=== PATIENT | male | born 1955 | race Caucasian/White ===

== ENCOUNTER 2018-05-14 06:49 | Emergency (ER) | payer MEDICARE, OTHER ==
[2018-05-14 06:57] VITALS: BP 155/93
--- NOTE | 2018-05-14 08:28 | EDM.PDOC ---
ED HPI GENERAL MEDICAL PROBLEM - General Chief Complaint: Headache Stated Complaint: headache Time Seen by Provider: 05/14/18 07:34 Source of Information: Reports: Patient, Family (spouse) History Limitations: Reports: No Limitations - History of Present Illness INITIAL COMMENTS - FREE TEXT/NARRATIVE: Barron is a 62 yo male who presents to the ER with concerns of ongoing headache. He admits it started back in 2012 and has been chronic since. States back in 2012 he ended up getting encephalitis. He states the headaches were always manageable but have been getting worse the last few months. Dr. Skinner, primary physician, has done multiple imaging and laboratory tests secondary to his headaches. He was given prednisone a few weeks ago and he admits it completely resolved his headache. After stopping the medication the headache returned in [address] Skinner was concerned of his kidney function with history of chronic kidney disease and his diabetes. He has seen nephrology in the past but his fabrication welder ( Dr. Davis) left and hasn't seen one in awhile. He admits he is now scheduled for May 29 to see nephrology in [place] at [place]. He states he has been up last night vomiting and has had 1 episode in the ER. He hasn't taken anything for nausea. His would also like for us to look at a tick bite to the right side of his stomach. She states he got bit a few days ago. Location: Reports: Head Headache Pain Score (Numeric/FACES): 7 - Related Data Allergies Allergy/AdvReac Type Severity Reaction Status Date / Time amoxicillin Allergy Itching Verified 05/14/18 06:57 erythromycin base Allergy Nausea Verified 05/14/18 06:57 penicillin Allergy Swelling Verified 05/14/18 06:57 Home Meds: Home Meds ALPRAZolam [Xanax] 0.25 mg PO Q8H PRN 07/02/15 [History] Amitriptyline [Elavil] 1 - 2 tab PO BEDTIME 07/02/15 [History] Insulin Detemir [Levemir] 40 units SQ BEDTIME 07/02/15 [History] Moexipril HCl [Moexipril] 15 mg PO BEDTIME 07/02/15 [History] Sertraline [Zoloft] 50 tab PO BEDTIME 07/02/15 [History] oxyCODONE 20 mg PO Q12H 07/02/15 [History] Simvastatin [Zocor] 20 mg PO BEDTIME 01/25/16 [History] Insulin Lispro [HumaLOG] 10 unit SQ ACBREAKFAST 02/13/16 [History] Insulin Lispro [HumaLOG] 14 unit SQ ACLUNCH 02/13/16 [History] Insulin Lispro [HumaLOG] 18 unit SQ ACDINNER 02/13/16 [History] Albuterol [Ventolin HFA] 2 puff INH QID PRN 02/15/16 [History] Fluticasone/Salmeterol [Advair Diskus 250-50] 1 puff INH BID 05/28/16 [History] Gemfibrozil [Lopid] 600 mg PO BID 05/28/16 [History] Metoprolol Succinate 50 mg PO DAILY 05/14/18 [History] Past Medical History HEENT History: Reports: Allergic Rhinitis, Other (See Below) Other HEENT History: left eardrum trauma Cardiovascular History: Reports: High Cholesterol, Hypertension, Other (See Below) Other Cardiovascular History: pt states will have to see a program specialist for possilbe stent placement. Respiratory History: Reports: Asthma, COPD Gastrointestinal History: Reports: Pancreatitis, PUD Genitourinary History: Reports: BPH Musculoskeletal History: Reports: Arthritis, Back Pain, Chronic, Osteoarthritis Psychiatric History: Reports: Anxiety, Depression Endocrine/Metabolic History: Reports: Diabetes, Type II Immunologic History: Reports: Other (See Below) Other Immunologic History: Hx of shingles - Infectious Disease History Infectious Disease History: Reports: Shingles - Past Surgical History GI Surgical History: Reports: Cholecystectomy, Colonoscopy Neurological Surgical History: Reports: Laminectomy, Lumbar Spine, Spinal Fusion , Other (See Below) Musculoskeletal Surgical History: Reports: Knee Replacement, Shoulder Surgery Social & Family History - Family History Family Medical History: Noncontributory - Tobacco Use Smoking Status *Q: Never Smoker - Caffeine Use Caffeine Use: Reports: None - Recreational Drug Use Recreational Drug Use: No ED ROS GENERAL - Review of Systems Review Of Systems: See Below Constitutional: Denies: Fever, Chills HEENT: Reports: Sinus Problem Respiratory: Reports: No Symptoms Cardiovascular: Reports: No Symptoms GI/Abdominal: Reports: Nausea, Vomiting : Reports: No Symptoms Musculoskeletal: Reports: No Symptoms Neurological: Reports: Headache. Denies: Confusion, Dizziness, Difficulty Walking, Change in Speech Psychiatric: Reports: Anxiety - Physical Exam Exam: See Below Exam Limited By: No Limitations General Appearance: Alert, No Apparent Distress Ears: Normal External Exam, Normal Canal, Hearing Grossly Normal, Normal TMs Nose: Normal Inspection, Normal Mucosa, No Blood Throat/Mouth: Normal Inspection, Normal Lips, Normal Teeth, Normal Gums, Normal Oropharynx, Normal Voice, No Airway Compromise Head Exam: Atraumatic, Normocephalic Neck: Normal Inspection, Supple Respiratory/Chest: No Respiratory Distress, Lungs Clear, Normal Breath Sounds, No Accessory Muscle Use Cardiovascular: Regular Rate, Rhythm, No Edema, No Murmur Neuro Exam (Abbreviated): Alert, Oriented, CN II-XII Intact, Normal Cognition, Normal Gait, No Motor/Sensory Deficits Psychiatric: Normal Affect, Normal Mood Skin Exam: Warm, Dry, Intact, Other (erythema migrans noted to tick bite along belt line of abdomen) Course - Vital Signs Last Recorded V/S: Last Vital Signs Temp 96.8 F 05/14/18 06:53 Pulse 77 05/14/18 06:53 Resp 20 05/14/18 06:53 BP 155/93 H 05/14/18 06:53 Pulse Ox 98 05/14/18 06:53 - Orders/Labs/Meds Orders: Active Orders 24 hr Category Date Time Status BASIC METABOLIC PANEL,BMP [CHEM] Stat Lab 05/14/18 07:50 Ordered LYME, TOTAL AB TEST/REFLEX [REF] Routine Lab 05/14/18 07:50 Ordered MAGNESIUM [CHEM] Stat Lab 05/14/18 07:50 Ordered Labs: Laboratory Tests 05/14/18 Range/Units 07:50 WBC 14.8 H (5.0-10.0) 10^3/uL RBC 4.36 L (4.50-6.00) 10^6/uL Hgb 12.3 L (14.0-18.0) g/dL Hct 38.7 L (40.0-54.0) % MCV 88.8 (82.0-94.0) fL MCH 28.2 (27.0-32.0) pg MCHC 31.8 L (33.0-38.0) g/dL RDW Coeff of Cheo 12.9 (11.0-15.0) % Plt Count 242 (150-400) 10^3/uL Neut % (Auto) 84.6 (35-85) % Lymph % (Auto) 8.4 L (10-55) % [place] % (Auto) 4.5 (0-16) % Eos % (Auto) 2.2 (0-5) % Baso % (Auto) 0.3 (0-3) % Neut # (Auto) 12.55 H (1.80-7.00) 10^3/uL Lymph # (Auto) 1.25 (1.00-4.80) 10^3/uL [place] # (Auto) 0.66 (0.00-0.80) 10^3/uL Eos # (Auto) 0.32 (0.00-0.45) 10^3/uL Baso # (Auto) 0.04 10^3/uL ESR 77 H (0-15) mm/hr - Re-Assessments/Exams Free Text/Narrative Re-Assessment/Exam: I reviewed all prior laboratory and imaging done by Dr. Skinner to include CT head and sinuses. Laboratory work showed an elevated Sed Rate which is consistent with today's Sed Rate. I consulted with Dr. Skinner in regards to Barron's condition. Creatinine is the same as two weeks ago at 3.7. We will start him on prednisone tapering dose today. Will proceed with 125mg of Solu Medrol and 4mg of Zofran intramuscularly. Discussed with Barron he needs to follow up with Dr. Skinner next Saturday in clinic for recheck. Departure - Departure Time of Disposition: 08:40 Disposition: Home, Self-Care 01 Clinical Impression: Temporal arteritis, Erythema migrans (Lyme disease) - Discharge Information Instructions: Tick Bite Information, Adult, [id number], Temporal Arteritis Forms: ED Department Discharge Additional Instructions: 1) Prednisone 40mg daily for three days, then 30mg daily for three days, then 20mg daily for 3 days, then 10mg daily for 3 days, then finish with 5mg a day for 3 days. 2) Zofran 4mg ODT - 1 tablet every 4 hours as needed for nausea 3) Doxycycline 100mg - 2 tablets one time dose 4) Push fluids as discussed 5) Follow up appointment scheduled with Dr. Skinner on SaturdayMay 20 at 1:15pm. 6) Return to ER if symptoms worsen or any concerns at all. - Problem List & Annotations (1) Erythema migrans (Lyme disease) SNOMED Code(s): 10649410 Code(s): A69.20 - LYME DISEASE, UNSPECIFIED Status: Acute Current Visit: Yes (2) Temporal arteritis SNOMED Code(s): 226703889 Code(s): M31.6 - OTHER GIANT CELL ARTERITIS Status: Acute Current Visit: Yes - My Orders Last 24 Hours: My Active Orders 05/14/18 07:50 BASIC METABOLIC PANEL,BMP [CHEM] Stat LYME, TOTAL AB TEST/REFLEX [REF] Routine MAGNESIUM [CHEM] Stat - Assessment/Plan Last 24 Hours: My Active Orders 05/14/18 07:50 BASIC METABOLIC PANEL,BMP [CHEM] Stat LYME, TOTAL AB TEST/REFLEX [REF] Routine MAGNESIUM [CHEM] Stat Plan: consulted with Dr. Skinner in regards to Barron's current condition. Will treat as presumptive temporal arteritis with tapering oral prednisone. discussed into detail his current kidney status and has been elevated for quite some time. Braron is to follow up with Dr. Skinner next week Saturday with appointment scheduled for 1:15pm. See course for complete details. In regards to noted erythema migrans, will treat with one time dose of doxycycline 200mg as well. Lyme titer is pending.
[2018-05-14] MEDS: Ondansetron 4 MG/2 ML SDV IM STA (08:36)
[2018-05-14] MEDS: methylPREDNISolone Sodium Succinate 125 MG/2 ML SDV IM STA (08:37)
== END 2018-05-14 08:57 | disposition home or self-care (01) ==
LOC: CC.ED 06:49
DX: M31.6 Other giant cell arteritis (principal); A69.20 Lyme disease, unspecified; E11.9 Type 2 diabetes mellitus without complications; J44.9 Chronic obstructive pulmonary disease, unspecified; E78.00 Pure hypercholesterolemia, unspecified; F41.9 Anxiety disorder, unspecified; F32.9 Major depressive disorder, single episode, unspecified; Z88.1 Allergy status to other antibiotic agents; Z88.0 Allergy status to penicillin; Z79.4 Long term (current) use of insulin; I10 Essential (primary) hypertension
CPT/HCPCS: 36415; 80048; 83735; 85025; 85651; 86618; 96372; 99283; 99284; J2405; J2930

== ENCOUNTER 2018-06-02 12:18 | Inpatient (IN) | payer MEDICARE, OTHER ==
[2018-06-02 12:38] LABS: CHLORIDE,CL 102 mEq/L (98-106); SODIUM,NA 134 mEq/L (136-145)
[2018-06-02] MEDS ORDERED: Acetaminophen 325 MG Tab PO PRN (14:35)
[2018-06-02] MEDS ORDERED: Albuterol/Ipratropium 3.0-0.5 MG/3 ML Neb Soln NEB PRN ×2 (14:35→16:40)
[2018-06-02] MEDS ORDERED: Ibuprofen 200 MG Tab PO PRN (14:35)
[2018-06-02] MEDS ORDERED: Temazepam 15 MG Cap PO PRN (14:35)
[2018-06-02] MEDS ORDERED: Sodium Chloride 0.9% 10 ML Syringe FLUSH PRN (14:35)
[2018-06-02] MEDS ORDERED: Albuterol 8 GM Inhaler INH PRN ×2 (14:51)
[2018-06-02] MEDS ORDERED: Ondansetron 4 MG Tab.DIS PO PRN (14:51)
[2018-06-02] MEDS ORDERED: Levofloxacin/Dextrose 5%-Water 500 MG in Premix Bag 1 BAG IV SCH (15:00)
[2018-06-02] MEDS: Enoxaparin 30 MG/0.3 ML Syringe SUBCUT SCH (15:34)
[2018-06-02] MEDS ORDERED: Albuterol/Ipratropium 3.0-0.5 MG/3 ML Neb Soln ONE (16:55)
[2018-06-02] MEDS: cefTRIAXone 1 GM Vial IVPUSH SCH (17:00)
[2018-06-02] MEDS: Azithromycin 500 MG in Sodium Chloride 0.9% 250 ML IV SCH (17:03)
[2018-06-02] MEDS: Insulin Aspart 100 Units/ML 3 ML Pen SUBCUT SCH (17:42)
[2018-06-02] MEDS: Sodium Chloride 0.45% 1,000 ML IV SCH (18:20)
[2018-06-02] MEDS: Formoterol/Mometasone 200-5 MCG 8.8 GM Inhaler IH SCH (19:34)
[2018-06-02] MEDS: Simvastatin 20 MG Tab PO SCH (19:36)
[2018-06-02] MEDS: Gemfibrozil 600 MG Tab PO SCH (19:36)
[2018-06-02] MEDS: Sertraline 100 MG Tab PO SCH (19:36)
[2018-06-02] MEDS: oxyCODONE ER 10 MG TAB.ER PO SCH (19:36)
[2018-06-02] MEDS: Insulin Detemir 100 Units/ML 3 ML Pen SUBCUT SCH (19:40)
[2018-06-02] MEDS ORDERED: Amitriptyline 25 MG Tab PO SCH (20:00)
[2018-06-02] MEDS: Albuterol/Ipratropium 3.0-0.5 MG/3 ML Neb Soln NEB SCH (20:12)
[2018-06-02] MEDS: hydrALAZINE 25 MG Tab PO SCH (20:45)
[2018-06-02] MEDS: Lisinopril 10 MG Tab PO SCH (20:46)
[2018-06-03] MEDS: ALPRAZolam 0.25 MG Tab PO PRN ×2 (03:57→12:17)
[2018-06-03] MEDS: predniSONE 20 MG Tab PO SCH (07:20)
[2018-06-03] MEDS: hydrALAZINE 25 MG Tab PO SCH ×2 (07:21→16:30)
[2018-06-03] MEDS: Calcitriol 0.25 MCG Cap PO SCH (07:21)
[2018-06-03] MEDS: oxyCODONE ER 10 MG TAB.ER PO SCH (07:22)
[2018-06-03] MEDS: amLODIPine 10 MG Tab PO SCH (07:22)
[2018-06-03] MEDS: Gemfibrozil 600 MG Tab PO SCH (07:22)
[2018-06-03] MEDS: Metoprolol Succinate 25 MG Tab.ER PO SCH (07:23)
[2018-06-03] MEDS: Formoterol/Mometasone 200-5 MCG 8.8 GM Inhaler IH SCH (07:28)
[2018-06-03] MEDS: Albuterol/Ipratropium 3.0-0.5 MG/3 ML Neb Soln NEB SCH ×3 (07:28→16:42)
[2018-06-03] MEDS: Insulin Aspart 100 Units/ML 3 ML Pen SUBCUT SCH ×5 (07:29→21:24)
[2018-06-03] MEDS: Sodium Chloride 0.45% 1,000 ML IV SCH (07:30)
[2018-06-03] MEDS: cefTRIAXone 1 GM Vial IVPUSH SCH (16:28)
[2018-06-03] MEDS: Enoxaparin 30 MG/0.3 ML Syringe SUBCUT SCH (16:30)
[2018-06-03] MEDS: Azithromycin 500 MG in Sodium Chloride 0.9% 250 ML IV SCH (16:41)
[2018-06-03] MEDS ORDERED: ALPRAZolam 0.25 MG Tab PO ONE (17:59)
[2018-06-03] MEDS ORDERED: Amitriptyline 25 MG Tab PO SCH (20:00)
--- NOTE | 2018-06-03 21:23 | PCM.PN ---
- General Info Date of Service: 06/03/18 Admission Dx/Problem (Free Text): LLL Pneumonia Functional Status: Reports: Pain Controlled, Tolerating Diet, Ambulating - Review of Systems General: Reports: Fatigue. Denies: Fever, Weakness HEENT: Reports: Sinus Congestion. Denies: Ear Pain, Sore Throat Pulmonary: Reports: Shortness of Breath, Cough. Denies: Sputum Cardiovascular: Denies: Chest Pain, Edema, Lightheadedness Gastrointestinal: Denies: Abdominal Pain, Nausea, Vomiting Genitourinary: Reports: No Symptoms Musculoskeletal: Reports: No Symptoms Skin: Reports: No Symptoms Neurological: Reports: No Symptoms Psychiatric: Reports: Anxiety - Patient Data Vitals - Most Recent: Last Vital Signs Temp 98.2 F 06/03/18 16:00 Pulse 85 06/03/18 16:00 Resp 17 06/03/18 16:00 BP 160/56 H 06/03/18 16:30 Pulse Ox 95 06/03/18 16:00 Weight - Most Recent: 177 lb 8 oz I&O - Last 24 Hours: Intake & Output 06/03/18 06/03/18 06/03/18 06:59 14:59 22:59 Intake Total 988 Balance 988 Lab Results Last 24 Hours: Laboratory Results - last 24 hr 06/02/18 06/02/18 06/03/18 Range/Units 17:06 21:37 07:05 WBC 8.8 (5.0-10.0) 10^3/uL RBC 3.04 L (4.50-6.00) 10^6/uL Hgb 8.6 L (14.0-18.0) g/dL Hct 27.2 L (40.0-54.0) % MCV 89.5 (82.0-94.0) fL MCH 28.3 (27.0-32.0) pg MCHC 31.6 L (33.0-38.0) g/dL RDW Coeff of Cheo 12.7 (11.0-15.0) % Plt Count 182 (150-400) 10^3/uL Neut % (Auto) 84.9 (35-85) % Lymph % (Auto) 8.8 L (10-55) % [place] % (Auto) 5.7 (0-16) % Eos % (Auto) 0.5 (0-5) % Baso % (Auto) 0.1 (0-3) % Neut # (Auto) 7.44 H (1.80-7.00) 10^3/uL Lymph # (Auto) 0.77 L (1.00-4.80) 10^3/uL [place] # (Auto) 0.50 (0.00-0.80) 10^3/uL Eos # (Auto) 0.04 (0.00-0.45) 10^3/uL Baso # (Auto) 0.01 10^3/uL Sodium (136-145) mEq/L Potassium (3.5-5.0) mEq/L Chloride (98-106) mEq/L Carbon Dioxide (21-32) mmol/L BUN (7-18) mg/dL Creatinine (0.7-1.3) mg/dL Est Cr Clr Drug Dosing mL/min Estimated GFR (MDRD) (>=60) mL/min Glucose (75-99) mg/dL POC Glucose 298 H 236 H (75-105) mg/dl Calcium (8.4-10.1) mg/dL C-Reactive Protein (0.2-0.8) mg/dL 06/03/1818 18 Range/Units 07:05 07:18 12:18 WBC (5.0-10.0) 10^3/uL RBC (4.50-6.00) 10^6/uL Hgb (14.0-18.0) g/dL Hct (40.0-54.0) % MCV (82.0-94.0) fL MCH (27.0-32.0) pg MCHC (33.0-38.0) g/dL RDW Coeff of Cheo (11.0-15.0) % Plt Count (150-400) 10^3/uL Neut % (Auto) (35-85) % Lymph % (Auto) (10-55) % [place] % (Auto) (0-16) % Eos % (Auto) (0-5) % Baso % (Auto) (0-3) % Neut # (Auto) (1.80-7.00) 10^3/uL Lymph # (Auto) (1.00-4.80) 10^3/uL [place] # (Auto) (0.00-0.80) 10^3/uL Eos # (Auto) (0.00-0.45) 10^3/uL Baso # (Auto) 10^3/uL Sodium 135 L (136-145) mEq/L Potassium 4.3 (3.5-5.0) mEq/L Chloride 103 (98-106) mEq/L Carbon Dioxide 22 (21-32) mmol/L BUN 57 H (7-18) mg/dL Creatinine 3.7 H* (0.7-1.3) mg/dL Est Cr Clr Drug Dosing 17.31 mL/min Estimated GFR (MDRD) 17 L (>=60) mL/min Glucose 202 H (75-99) mg/dL POC Glucose 211 H 52 L (75-105) mg/dl Calcium 7.6 L (8.4-10.1) mg/dL C-Reactive Protein 9.3 H (0.2-0.8) mg/dL 06/03/18 06/03/18 Range/Units 17:25 21:00 WBC (5.0-10.0) 10^3/uL RBC (4.50-6.00) 10^6/uL Hgb (14.0-18.0) g/dL Hct (40.0-54.0) % MCV (82.0-94.0) fL MCH (27.0-32.0) pg MCHC (33.0-38.0) g/dL RDW Coeff of [place] (11.0-15.0) % Plt Count (150-400) 10^3/uL Neut % (Auto) (35-85) % Lymph % (Auto) (10-55) % [place] % (Auto) (0-16) % Eos % (Auto) (0-5) % Baso % (Auto) (0-3) % Neut # (Auto) (1.80-7.00) 10^3/uL Lymph # (Auto) (1.00-4.80) 10^3/uL [place] # (Auto) (0.00-0.80) 10^3/uL Eos # (Auto) (0.00-0.45) 10^3/uL Baso # (Auto) 10^3/uL Sodium (136-145) mEq/L Potassium (3.5-5.0) mEq/L Chloride (98-106) mEq/L Carbon Dioxide (21-32) mmol/L BUN (7-18) mg/dL Creatinine (0.7-1.3) mg/dL Est Cr Clr Drug Dosing mL/min Estimated GFR (MDRD) (>=60) mL/min Glucose (75-99) mg/dL POC Glucose 188 H 150 H (75-105) mg/dl Calcium (8.4-10.1) mg/dL C-Reactive Protein (0.2-0.8) mg/dL [place] Results Last 24 Hours: Microbiology 06/02/18 14:45 Aerobic Blood Culture - Preliminary Blood - Venous NO GROWTH AFTER 1 DAY Anaerobic Blood Culture - Preliminary NO GROWTH AFTER 1 DAY 06/02/18 14:35 Aerobic Blood Culture - Preliminary Blood NO GROWTH AFTER 1 DAY Anaerobic Blood Culture - Preliminary NO GROWTH AFTER 1 DAY 06/02/18 17:00 Gram Stain - Final Sputum - Expectorated Med Orders - Current: Current Medications Acetaminophen (Tylenol) 650 mg PO Q4H PRN PRN Reason: Pain (Mild 1-3)/fever Albuterol (Ventolin Hfa) 0 gm INH Q4H PRN PRN Reason: Shortness of Breath Albuterol (Ventolin Hfa) 0 gm INH QID PRN PRN Reason: Dyspnea Albuterol/Ipratropium (Duoneb 3.0-0.5 Mg/3 Ml) 3 ml NEB 0800,1200,1600,2000 [facility] Last Admin: 06/03/18 16:42 Dose: 3 ml Alprazolam (Xanax) 0.25 mg PO Q8H PRN PRN Reason: Anxiety Last Admin: 06/03/18 12:17 Dose: 0.25 mg Amitriptyline HCl (Elavil) 25 - 50 mg PO BEDTIME [facility] Amlodipine Besylate (Norvasc) 10 mg PO DAILY [facility] Last Admin: 06/03/18 07:22 Dose: 10 mg Calcitriol (Rocaltrol) 0.25 mcg PO DAILY [facility] Last Admin: 06/03/18 07:21 Dose: 0.25 mcg Ceftriaxone Sodium (Rocephin) 1 gm IVPUSH Q24H [facility] Last Admin: 06/03/18 16:28 Dose: 1 gm Enoxaparin Sodium (Lovenox) 30 mg SUBCUT DAILY@1600 [facility] Last Admin: 06/03/18 16:30 Dose: 30 mg Gemfibrozil (Lopid) 600 mg PO BID [facility] Last Admin: 06/03/18 07:22 Dose: 600 mg Hydralazine HCl (Apresoline) 50 mg PO TID [facility] Last Admin: 06/03/18 16:30 Dose: 50 mg Azithromycin 500 mg/ Sodium (Chloride) 250 mls @ 250 mls/hr IV Q24H [facility] Last Admin: 06/03/18 16:41 Dose: 250 mls/hr Sodium Chloride (Sodium Chloride 0.45%) 1,000 mls @ 75 mls/hr IV ASDIRECTED [facility] Last Admin: 06/03/18 07:30 Dose: 75 mls/hr Ibuprofen (Motrin) 400 mg PO Q6H PRN PRN Reason: Pain (mild 1-3) Last Admin: 06/02/18 15:34 Dose: 400 mg Insulin Aspart (Novolog) 10 unit SUBCUT 0800 [facility] Last Admin: 06/03/18 07:29 Dose: 10 unit Insulin Aspart (Novolog) 14 unit SUBCUT 1200 [facility] Last Admin: 06/03/18 12:19 Dose: Not Given Insulin Aspart (Novolog) 20 unit SUBCUT 1730 [facility] Last Admin: 06/03/18 17:47 Dose: 20 units Insulin Aspart (Novolog) 0 unit SUBCUT WITHMEALSANDBED [facility]; Protocol Last Admin: 06/03/18 17:48 Dose: Not Given Insulin Detemir (Levemir) 50 unit SUBCUT BEDTIME [facility] Last Admin: 06/02/18 19:40 Dose: 50 unit Lisinopril (Prinivil) 10 mg PO BEDTIME [facility] Last Admin: 06/02/18 20:46 Dose: 10 mg Metoprolol Succinate (Toprol Xl) 50 mg PO DAILY [facility] Last Admin: 06/03/18 07:23 Dose: 50 mg Mometasone Furoate/Formoterol Fumar (Dulera 200-5 Mcg) 2 puff IH BID [facility] Last Admin: 06/03/18 07:28 Dose: 2 puff Ondansetron HCl (Zofran Odt) 4 mg PO Q4H PRN PRN Reason: Vomiting Oxycodone HCl (Oxycontin) 20 mg PO BID [facility] Last Admin: 06/03/18 07:22 Dose: 20 mg Prednisone (Prednisone) 30 mg PO DAILY [facility] Last Admin: 06/03/18 07:20 Dose: 30 mg Sertraline HCl (Zoloft) 100 mg PO BEDTIME [facility] Last Admin: 06/02/18 19:36 Dose: 100 mg Simvastatin (Zocor) 20 mg PO BEDTIME [facility] Last Admin: 06/02/18 19:36 Dose: 20 mg Sodium Chloride (Saline Flush) 10 ml FLUSH ASDIRECTED PRN PRN Reason: Keep Vein Open Temazepam (Restoril) 15 mg PO BEDTIME PRN PRN Reason: Sleep Discontinued Medications Albuterol/Ipratropium (Duoneb 3.0-0.5 Mg/3 Ml) 3 ml NEB Q4H PRN PRN Reason: Shortness Of Breath/wheezing Albuterol/Ipratropium (Duoneb 3.0-0.5 Mg/3 Ml) 3 ml NEB 0800,1200,1600,2000 PRN PRN Reason: Shortness Of Breath/wheezing Albuterol/Ipratropium (Duoneb 3.0-0.5 Mg/3 Ml) Confirm Administered Dose 3 ml .ROUTE .STK-MED ONE Stop: 06/02/18 16:56 Last Admin: 06/02/18 17:02 Dose: 3 ml Alprazolam (Xanax) 0.5 mg PO ONETIME ONE Stop: 06/03/18 18:00 Last Admin: 06/03/18 18:10 Dose: 0.5 mg Amitriptyline HCl (Elavil) 25 mg PO BEDTIME [facility] Last Admin: 06/02/18 19:35 Dose: 25 mg Levofloxacin/Dextrose 500 mg/ (Premix) 100 mls @ 100 mls/hr IV Q24H [facility] Stop: 06/02/18 15:59 Last Admin: 06/02/18 16:27 Dose: Not Given Levofloxacin/Dextrose 250 mg/ (Premix) 50 mls @ 50 mls/hr IV Q48H [facility] - Exam General: Alert, Oriented HEENT: Mucous Membr. Moist/[place] Neck: Supple Lungs: Normal Respiratory Effort, Decreased Breath Sounds (LLL) Cardiovascular: Regular Rate, Regular Rhythm GI/Abdominal Exam: Normal Bowel Sounds, Soft, Non-Tender Extremities: Normal Inspection, No Pedal Edema Skin: Warm, Dry Neurological: No New Focal Deficit Psy/Mental Status: Anxious - Problem List & Annotations (1) LLL pneumonia SNOMED Code(s): 484468747 Code(s): J18.1 - LOBAR PNEUMONIA, UNSPECIFIED ORGANISM Status: Acute Priority: High Current Visit: Yes - Problem List Review Problem List Initiated/Reviewed/Updated: Yes - My Orders Last 24 Hours: My Active Orders 06/03/18 17:30 Insulin Aspart [NovoLOG] See Protocol SUBCUT WITHMEALSANDBED 06/04/18 05:11 BASIC METABOLIC PANEL,BMP [CHEM] AM C-REACTIVE PROTEIN [CHEM] AM CBC WITH AUTO DIFF [HEME] AM - Assessment Assessment:: LLL Pneumonia - Plan Plan:: Patient states feeling much better, complains of not getting any sleep while here. Cough and chest congestion improved. Does still feel mildly short of breath. No fevers. Appetite is good. Vital signs are stable. Labs note WBC of 8.8, improved from admit day. Hemoglobin down to 8.6. Creatinine only slightly improved at 3.7. CRP increased to 9.3. Will continue to monitor blood sugars, add sliding scale insulin. Continue IV antibiotics. DuoNebs. Repeat labs in am.
[2018-06-03] MEDS: Insulin Detemir 100 Units/ML 3 ML Pen SUBCUT SCH (21:25)
[2018-06-04] MEDS: Sodium Chloride 0.45% 1,000 ML IV SCH
[2018-06-04] MEDS: Albuterol/Ipratropium 3.0-0.5 MG/3 ML Neb Soln NEB SCH ×3 (00:45→11:12)
[2018-06-04] MEDS: oxyCODONE ER 10 MG TAB.ER PO SCH ×2 (00:45→07:31)
[2018-06-04] MEDS: Sertraline 100 MG Tab PO SCH (00:45)
[2018-06-04] MEDS: Lisinopril 10 MG Tab PO SCH (00:45)
[2018-06-04] MEDS: Gemfibrozil 600 MG Tab PO SCH ×2 (00:45→07:30)
[2018-06-04] MEDS: hydrALAZINE 25 MG Tab PO SCH ×2 (00:45→07:30)
[2018-06-04] MEDS: Simvastatin 20 MG Tab PO SCH (00:45)
[2018-06-04] MEDS: Formoterol/Mometasone 200-5 MCG 8.8 GM Inhaler IH SCH ×2 (00:45→07:34)
[2018-06-04] MEDS: amLODIPine 10 MG Tab PO SCH (07:27)
[2018-06-04] MEDS: Calcitriol 0.25 MCG Cap PO SCH (07:27)
[2018-06-04] MEDS: predniSONE 20 MG Tab PO SCH (07:30)
[2018-06-04] MEDS: Metoprolol Succinate 25 MG Tab.ER PO SCH (07:31)
[2018-06-04] MEDS: Insulin Aspart 100 Units/ML 3 ML Pen SUBCUT SCH ×4 (07:33→12:09)
[2018-06-04] MEDS: cefTRIAXone 1 GM Vial IVPUSH SCH (11:10)
[2018-06-04] MEDS: Azithromycin 500 MG in Sodium Chloride 0.9% 250 ML IV SCH (11:11)
[2018-06-04] MEDS: ALPRAZolam 0.25 MG Tab PO PRN (11:19)
[2018-06-04 11:39] VITALS: BP 122/61
[2018-06-04] MEDS ORDERED: Levofloxacin/Dextrose 5%-Water 250 MG in Premix Bag 1 BAG IV SCH (12:00)
--- NOTE | 2018-06-04 16:47 | PCM.DCSUM1 ---
Discharge Summary - Hospital Course Free Text/Narrative:: Patient presented to clinic and was seen by Luis Palu for increased shortness of breath and exacerbation of his allergies. States that typically during haying season, he gets a flare up. Has noted wheezing but was getting good response from his nebulizer treatments. Was initially given 80 mg of Kenalog in the clinic prior to the provider being informed that he was scheduled for a temporal artery biopsy. In order to proceed, labs and xray were done. CXR showed a LLL pneumonia. WBC was elevated with a CPR of 7.5. Creatinine high at 3.9 but has been running chronically greater than 3.1 and is seeing a internet project manager for this. ADmitted and started on Levaquin and duonebs. 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 Diagnosis: Stroke: No - Discharge Data Discharge Date: 06/04/18 Discharge Disposition: Home, Self-Care 01 Condition: Good - Discharge Diagnosis/Problem(s) (1) LLL pneumonia SNOMED Code(s): 858922236 ICD Code: J18.1 - LOBAR PNEUMONIA, UNSPECIFIED ORGANISM Status: Acute Priority: High - Patient Summary/Data Complications: none Hospital Course: Patient admits to feeling better today. Is up and around in room without cough or increased shortness of breath. Does feel he has better air movement now. Gets good response from the duonebs. Was switched from Levaquin to Rocephin and zithromax due to renal function. Has tolerated well. Oxygen sats are well maintained on room air. No fevers. Creatinine has remained high at 3.8. WBC has improved to 8.7. Hgb stable at 8.7. CRP did spike up to 9.3 but down to 4.0 today. He had a temporal artery biopsy done by DR. Melendez yesterday, site mildly swollen and tender. Lungs are clear but diminished. No cough. - Patient Instructions Diet: Diabetic Diet Activity: As Tolerated - Discharge Plan *PRESCRIPTION DRUG MONITORING PROGRAM REVIEWED*: Not Applicable *COPY OF PRESCRIPTION DRUG MONITORING REPORT IN PATIENT STEPHANIE: Not Applicable Prescriptions/Med Rec: Azithromycin [Zithromax] 500 mg PO DAILY #3 tab Cefuroxime Axetil [Ceftin] 250 mg PO BID #20 tablet Home Medications: Home Meds ALPRAZolam [Xanax] 0.25 mg PO Q8H PRN 07/02/15 [History] Amitriptyline [Elavil] 1 - 2 tab PO BEDTIME 07/02/15 [History] Insulin Detemir [Levemir] 50 units SQ BEDTIME 07/02/15 [History] Moexipril HCl [Moexipril] 15 mg PO BEDTIME 07/02/15 [History] Sertraline [Zoloft] 50 tab PO BEDTIME 07/02/15 [History] Simvastatin [Zocor] 20 mg PO BEDTIME 01/25/16 [History] Insulin Lispro [HumaLOG] 10 unit SQ 0800 02/13/16 [History] Insulin Lispro [HumaLOG] 14 unit SQ 1200 02/13/16 [History] Insulin Lispro [HumaLOG] 20 unit SQ 1730 02/13/16 [History] Albuterol [Ventolin HFA] 2 puff INH QID PRN 02/15/16 [History] Fluticasone/Salmeterol [Advair Diskus 250-50] 1 puff INH BID 05/28/16 [History] Gemfibrozil [Lopid] 600 mg PO BID 05/28/16 [History] Metoprolol Succinate 50 mg PO DAILY 05/14/18 [History] Ondansetron [Zofran ODT] 4 mg PO Q4H PRN #12 tab.dis 05/14/18 [Rx] Albuterol [Ventolin HFA] 2 inh INH Q4H PRN 06/02/18 [History] Calcitriol 0.25 mcg PO DAILY 06/02/18 [History] Ipratropium/Albuterol Sulfate [Iprat-Albut 0.5-3(2.5) mg/3 ml] 1 inh INH QID PRN 06/02/18 [History] amLODIPine Besylate [Amlodipine Besylate] 10 mg PO DAILY 06/02/18 [History] hydrALAZINE HCl [Hydralazine HCl] 50 mg PO TID 06/02/18 [History] oxyCODONE ER [OxyCONTIN] 20 mg PO BID 06/02/18 [History] Azithromycin [Zithromax] 500 mg PO DAILY #3 tab 06/04/18 [Rx] Cefuroxime Axetil [Ceftin] 250 mg PO BID #20 tablet 06/04/18 [Rx] predniSONE [Prednisone] 20 mg PO DAILY #2 06/04/18 [Rx] Referrals: Eugene Skinner MD [ED Physician] - (Follow up with Dr. Skinner on Saturday, labs prior to clinic visit) - Discharge Summary/Plan Comment DC Time >30 min.: No Discharge Summary/Plan Comment: Discharge home Continue Ceftin 250 mg daily Zithromax 500 mg daily for 3 days Prednisone 20 mg daily for 2 days then reduce to 10 mg daily Follow up with Dr. Skinner next week, Sed rate, BMP and CBC prior to appointment. - General Info Date of Service: 06/04/18 Admission Dx/Problem (Free Text: LLL Pneumonia Functional Status: Reports: Pain Controlled, Tolerating Diet, Ambulating - Review of Systems General: Reports: Fatigue, Malaise. Denies: Fever, Weakness HEENT: Reports: Other (discomfort to left tenriism from biopsy). Denies: Ear Pain , Sore Throat Pulmonary: Reports: Shortness of Breath. Denies: Cough Cardiovascular: Denies: Chest Pain, Edema, Lightheadedness Gastrointestinal: Denies: Abdominal Pain, Nausea, Vomiting Genitourinary: Reports: No Symptoms Musculoskeletal: Reports: Back Pain Neurological: Reports: No Symptoms Psychiatric: Reports: Anxiety - Patient Data Vitals - Most Recent: Last Vital Signs Temp 99.0 F 06/04/18 11:38 Pulse 84 06/04/18 11:38 Resp 20 06/04/18 11:38 BP 122/61 06/04/18 11:38 Pulse Ox 96 06/04/18 11:38 Weight - Most Recent: 177 lb 8 oz Lab Results - Last 24 hrs: Laboratory Results - last 24 hr 06/03/18 06/03/18 06/04/18 Range/Units 17:25 21:00 07:11 WBC (5.0-10.0) 10^3/uL RBC (4.50-6.00) 10^6/uL Hgb (14.0-18.0) g/dL Hct (40.0-54.0) % MCV (82.0-94.0) fL MCH (27.0-32.0) pg MCHC (33.0-38.0) g/dL RDW Coeff of Cheo (11.0-15.0) % Plt Count (150-400) 10^3/uL Neut % (Auto) (35-85) % Lymph % (Auto) (10-55) % Centre % (Auto) (0-16) % Eos % (Auto) (0-5) % Baso % (Auto) (0-3) % Neut # (Auto) (1.80-7.00) 10^3/uL Lymph # (Auto) (1.00-4.80) 10^3/uL Centre # (Auto) (0.00-0.80) 10^3/uL Eos # (Auto) (0.00-0.45) 10^3/uL Baso # (Auto) 10^3/uL Sodium (136-145) mEq/L Potassium (3.5-5.0) mEq/L Chloride (98-106) mEq/L Carbon Dioxide (21-32) mmol/L BUN (7-18) mg/dL Creatinine (0.7-1.3) mg/dL Est Cr Clr Drug Dosing mL/min Estimated GFR (MDRD) (>=60) mL/min Glucose (75-99) mg/dL POC Glucose 188 H 150 H 122 H (75-105) mg/dl Calcium (8.4-10.1) mg/dL C-Reactive Protein (0.2-0.8) mg/dL 18 06/04/18 Range/Units 07:26 07:26 WBC 8.7 (5.0-10.0) 10^3/uL RBC 3.08 L (4.50-6.00) 10^6/uL Hgb 8.7 L (14.0-18.0) g/dL Hct 27.8 L (40.0-54.0) % MCV 90.3 (82.0-94.0) fL MCH 28.2 (27.0-32.0) pg MCHC 31.3 L (33.0-38.0) g/dL RDW Coeff of Cheo 13.2 (11.0-15.0) % Plt Count 211 (150-400) 10^3/uL Neut % (Auto) 81.3 (35-85) % Lymph % (Auto) 11.4 (10-55) % Centre % (Auto) 6.3 (0-16) % Eos % (Auto) 0.9 (0-5) % Baso % (Auto) 0.1 (0-3) % Neut # (Auto) 7.06 H (1.80-7.00) 10^3/uL Lymph # (Auto) 0.99 L (1.00-4.80) 10^3/uL Centre # (Auto) 0.55 (0.00-0.80) 10^3/uL Eos # (Auto) 0.08 (0.00-0.45) 10^3/uL Baso # (Auto) 0.01 10^3/uL Sodium 136 (136-145) mEq/L Potassium 4.4 (3.5-5.0) mEq/L Chloride 105 (98-106) mEq/L Carbon Dioxide 19 L (21-32) mmol/L BUN 55 H (7-18) mg/dL Creatinine 3.8 H* (0.7-1.3) mg/dL Est Cr Clr Drug Dosing 16.86 mL/min Estimated GFR (MDRD) 16 L (>=60) mL/min Glucose 122 H D (75-99) mg/dL POC Glucose (75-105) mg/dl Calcium 7.8 L (8.4-10.1) mg/dL C-Reactive Protein 4.0 H (0.2-0.8) mg/dL CHELA Results - Last 24 hrs: Microbiology 06/02/18 14:45 Aerobic Blood Culture - Preliminary Blood - Venous NO GROWTH AFTER 2 DAYS Anaerobic Blood Culture - Preliminary NO GROWTH AFTER 2 DAYS 06/02/18 14:35 Aerobic Blood Culture - Preliminary Blood NO GROWTH AFTER 2 DAYS Anaerobic Blood Culture - Preliminary NO GROWTH AFTER 2 DAYS 06/02/18 17:00 Gram Stain - Final Sputum - Expectorated Sputum Culture - Preliminary Gram Negative Rods Med Orders - Current: Current Medications Discontinued Medications Acetaminophen (Tylenol) 650 mg PO Q4H PRN PRN Reason: Pain (Mild 1-3)/fever Albuterol (Ventolin Hfa) 0 gm INH Q4H PRN PRN Reason: Shortness of Breath Last Admin: 06/04/18 03:53 Dose: 2 puff Albuterol (Ventolin Hfa) 0 gm INH QID PRN PRN Reason: Dyspnea Albuterol/Ipratropium (Duoneb 3.0-0.5 Mg/3 Ml) 3 ml NEB Q4H PRN PRN Reason: Shortness Of Breath/wheezing Albuterol/Ipratropium (Duoneb 3.0-0.5 Mg/3 Ml) 3 ml NEB 0800,1200,1600,2000 PRN PRN Reason: Shortness Of Breath/wheezing Albuterol/Ipratropium (Duoneb 3.0-0.5 Mg/3 Ml) 3 ml NEB 0800,1200,1600,2000 [facility] Last Admin: 06/04/18 11:12 Dose: 3 ml Albuterol/Ipratropium (Duoneb 3.0-0.5 Mg/3 Ml) Confirm Administered Dose 3 ml .ROUTE .STK-MED ONE Stop: 06/02/18 16:56 Last Admin: 06/02/18 17:02 Dose: 3 ml Alprazolam (Xanax) 0.25 mg PO Q8H PRN PRN Reason: Anxiety Last Admin: 06/04/18 11:19 Dose: 0.25 mg Alprazolam (Xanax) 0.5 mg PO ONETIME ONE Stop: 06/03/18 18:00 Last Admin: 06/03/18 18:10 Dose: 0.5 mg Amitriptyline HCl (Elavil) 25 mg PO BEDTIME [facility] Last Admin: 06/02/18 19:35 Dose: 25 mg Amitriptyline HCl (Elavil) 25 - 50 mg PO BEDTIME [facility] Last Admin: 06/04/18 00:45 Dose: Not Given Amlodipine Besylate (Norvasc) 10 mg PO DAILY [facility] Last Admin: 06/04/18 07:27 Dose: 10 mg Calcitriol (Rocaltrol) 0.25 mcg PO DAILY [facility] Last Admin: 06/04/18 07:27 Dose: 0.25 mcg Ceftriaxone Sodium (Rocephin) 1 gm IVPUSH Q24H [facility] Last Admin: 06/04/18 11:10 Dose: 1 gm Docusate Sodium (Colace) 200 mg PO DAILY [facility] Enoxaparin Sodium (Lovenox) 30 mg SUBCUT DAILY@1600 [facility] Last Admin: 06/03/18 16:30 Dose: 30 mg Gemfibrozil (Lopid) 600 mg PO BID [facility] Last Admin: 06/04/18 07:30 Dose: 600 mg Hydralazine HCl (Apresoline) 50 mg PO TID [facility] Last Admin: 06/04/18 07:30 Dose: 50 mg Levofloxacin/Dextrose 500 mg/ (Premix) 100 mls @ 100 mls/hr IV Q24H [facility] Stop: 06/02/18 15:59 Last Admin: 06/02/18 16:27 Dose: Not Given Levofloxacin/Dextrose 250 mg/ (Premix) 50 mls @ 50 mls/hr IV Q48H [facility] Azithromycin 500 mg/ Sodium (Chloride) 250 mls @ 250 mls/hr IV Q24H [facility] Last Admin: 06/04/18 11:11 Dose: 250 mls/hr Sodium Chloride (Sodium Chloride 0.45%) 1,000 mls @ 75 mls/hr IV ASDIRECTED [facility] Last Admin: 06/04/18 00:00 Dose: 75 mls/hr Ibuprofen (Motrin) 400 mg PO Q6H PRN PRN Reason: Pain (mild 1-3) Last Admin: 06/02/18 15:34 Dose: 400 mg Insulin Aspart (Novolog) 10 unit SUBCUT 0800 [facility] Last Admin: 06/04/18 07:33 Dose: 10 unit Insulin Aspart (Novolog) 14 unit SUBCUT 1200 [facility] Last Admin: 06/04/18 12:09 Dose: Not Given Insulin Aspart (Novolog) 20 unit SUBCUT 1730 [facility] Last Admin: 06/03/18 17:47 Dose: 20 units Insulin Aspart (Novolog) 0 unit SUBCUT WITHMEALSANDBED [facility]; Protocol Last Admin: 06/04/18 12:09 Dose: Not Given Insulin Detemir (Levemir) 50 unit SUBCUT BEDTIME [facility] Last Admin: 06/03/18 21:25 Dose: 50 unit Lisinopril (Prinivil) 10 mg PO BEDTIME [facility] Last Admin: 06/04/18 00:45 Dose: Not Given Metoprolol Succinate (Toprol Xl) 50 mg PO DAILY [facility] Last Admin: 06/04/18 07:31 Dose: 50 mg Mometasone Furoate/Formoterol Fumar (Dulera 200-5 Mcg) 2 puff IH BID [facility] Last Admin: 06/04/18 07:34 Dose: 2 puff Ondansetron HCl (Zofran Odt) 4 mg PO Q4H PRN PRN Reason: Vomiting Oxycodone HCl (Oxycontin) 20 mg PO BID [facility] Last Admin: 06/04/18 07:31 Dose: 20 mg Prednisone (Prednisone) 30 mg PO DAILY [facility] Last Admin: 06/04/18 07:30 Dose: 30 mg Sertraline HCl (Zoloft) 100 mg PO BEDTIME [facility] Last Admin: 06/04/18 00:45 Dose: Not Given Simvastatin (Zocor) 20 mg PO BEDTIME [facility] Last Admin: 06/04/18 00:45 Dose: Not Given Sodium Chloride (Saline Flush) 10 ml FLUSH ASDIRECTED PRN PRN Reason: Keep Vein Open Temazepam (Restoril) 15 mg PO BEDTIME PRN PRN Reason: Sleep - Exam General: Reports: Alert, Oriented Neck: Reports: Supple Lungs: Reports: Decreased Breath Sounds Cardiovascular: Reports: Regular Rate, Regular Rhythm GI/Abdominal Exam: Normal Bowel Sounds, Soft, Non-Tender Skin: Reports: Other (puncture site to left tenriism mildly swollen, tender, steri strips intact.) Neurological: Reports: No New Focal Deficit
[2018-06-04] MEDS ORDERED: Docusate Sodium 100 MG Cap PO SCH (20:00)
== END 2018-06-04 13:11 | disposition home or self-care (01) | DRG 194 ==
LOC: CC.MS 12:18 → CC.FCMC 12:18 → CC.MS 14:05 → UNDOADMIN 14:05 → CC.MS 14:35
PROVIDERS: ADMIT Physician Assistant Medical; ATTEND Family Medicine
DX: J18.9 Pneumonia, unspecified organism (principal); J18.1 Lobar pneumonia, unspecified organism; J44.0 Chronic obstructive pulmonary disease with (acute) lower respiratory infection; N40.0 Benign prostatic hyperplasia without lower urinary tract symptoms; G89.29 Other chronic pain; E11.22 Type 2 diabetes mellitus with diabetic chronic kidney disease; N18.9 Chronic kidney disease, unspecified; J30.9 Allergic rhinitis, unspecified; E78.5 Hyperlipidemia, unspecified; I12.9 Hypertensive chronic kidney disease with stage 1 through stage 4 chronic kidney disease, or unspecified chronic kidney disease; G47.00 Insomnia, unspecified; F32.9 Major depressive disorder, single episode, unspecified; M17.10 Unilateral primary osteoarthritis, unspecified knee; Z87.891 Personal history of nicotine dependence; Z87.718 Personal history of other specified (corrected) congenital malformations of genitourinary system; Z88.1 Allergy status to other antibiotic agents; Z88.0 Allergy status to penicillin; Z79.899 Other long term (current) drug therapy; Z79.4 Long term (current) use of insulin; Z79.52 Long term (current) use of systemic steroids; Z98.1 Arthrodesis status; Z96.659 Presence of unspecified artificial knee joint; R06.02 Shortness of breath; R11.0 Nausea; R06.00 Dyspnea, unspecified; R06.2 Wheezing; J02.9 Acute pharyngitis, unspecified; J34.89 Other specified disorders of nose and nasal sinuses; R51 Headache
CPT/HCPCS: 36415; 71046; 80048; 81001; 82962; 85025; 86140; 87040; 87070; 87077; 87205; 94640; A9270-GY; J0456; J0696; J1650; J1815-GY; J7030; J7050

== ENCOUNTER 2019-01-20 01:33 | Emergency (ER) | payer MEDICARE, OTHER ==
[2019-01-20 02:03] VITALS: BP 175/75
--- NOTE | 2019-01-20 02:27 | EDM.PDOC ---
ED HPI GENERAL MEDICAL PROBLEM - General Chief Complaint: Respiratory Problem Stated Complaint: "TROUBLE BREATHING" Time Seen by Provider: 01/20/19 02:00 Source of Information: Reports: Patient History Limitations: Reports: No Limitations - History of Present Illness INITIAL COMMENTS - FREE TEXT/NARRATIVE: Barron is a 63 year old male who presents to the ED via private vehicle with c/o shortness of breath. He reports he was seen in the clinic by Dr. Skinner last week and told he had Influenza. He reports fevers has subsided and overall he is feeling better. Does report since then his shortness of breath seems to be worse. He reports "if he could get a Kenalog shot he would feel better." He reports history of COPD. Does report chronic SOB. Has had productive cough of clear phlegm. He denies any chest pain, fever, weakness. Does report he has felt more fatigued. No other complaints. He reports he did Advair prior to ED presentation. Did not use his Duonebs or any other medications prior to coming to ED at 0200. Onset Date: 01/13/19 Duration: Improving Associated Symptoms: Reports: Cough, cough w sputum, Shortness of Breath. Denies: Confusion, Chest Pain, Fever/Chills, Headaches, Loss of Appetite, Malaise, Nausea/Vomiting, Rash, Seizure, Syncope, Weakness Treatments MANAGER DATABASE ADMINISTRATION: Reports: Other (see below) (Advair) - Related Data Allergies Allergy/AdvReac Type Severity Reaction Status Date / Time amoxicillin Allergy Itching Verified 01/20/19 01:48 erythromycin base Allergy Nausea Verified 01/20/19 01:48 penicillin Allergy Swelling Verified 01/20/19 01:48 Home Meds: Home Meds ALPRAZolam [Xanax] 0.25 mg PO Q8H PRN 07/02/15 [History] Amitriptyline [Elavil] 1 - 2 tab PO BEDTIME 07/02/15 [History] Insulin Detemir [Levemir] 50 units SQ BEDTIME 07/02/15 [History] Moexipril HCl [Moexipril] 15 mg PO BEDTIME 07/02/15 [History] Sertraline [Zoloft] 50 tab PO BEDTIME 07/02/15 [History] Simvastatin [Zocor] 20 mg PO BEDTIME 01/25/16 [History] Insulin Lispro [HumaLOG] 10 unit SQ 0800 02/13/16 [History] Insulin Lispro [HumaLOG] 14 unit SQ 1200 02/13/16 [History] Insulin Lispro [HumaLOG] 20 unit SQ 1730 02/13/16 [History] Albuterol [Ventolin HFA] 2 puff INH QID PRN 02/15/16 [History] Fluticasone/Salmeterol [Advair Diskus 250-50] 1 puff INH BID 05/28/16 [History] Gemfibrozil [Lopid] 600 mg PO BID 05/28/16 [History] Metoprolol Succinate 50 mg PO DAILY 05/14/18 [History] Ondansetron [Zofran ODT] 4 mg PO Q4H PRN #12 tab.dis 05/14/18 [Rx] Albuterol [Ventolin HFA] 2 inh INH Q4H PRN 06/02/18 [History] Calcitriol 0.25 mcg PO DAILY 06/02/18 [History] Ipratropium/Albuterol Sulfate [Iprat-Albut 0.5-3(2.5) mg/3 ml] 1 inh INH QID PRN 06/02/18 [History] amLODIPine Besylate [Amlodipine Besylate] 10 mg PO DAILY 06/02/18 [History] hydrALAZINE HCl [Hydralazine HCl] 50 mg PO TID 06/02/18 [History] oxyCODONE ER [OxyCONTIN] 20 mg PO BID 06/02/18 [History] Azithromycin [Zithromax] 500 mg PO DAILY #3 tab 06/04/18 [Rx] Cefuroxime Axetil [Ceftin] 250 mg PO BID #20 tablet 06/04/18 [Rx] predniSONE [Prednisone] 20 mg PO DAILY #2 06/04/18 [Rx] Past Medical History HEENT History: Reports: Allergic Rhinitis, Other (See Below) Other HEENT History: left eardrum trauma Cardiovascular History: Reports: High Cholesterol, Hypertension, Other (See Below) Other Cardiovascular History: pt states will have to see a associate director financial aid for possilbe stent placement. Respiratory History: Reports: Asthma, COPD Gastrointestinal History: Reports: Pancreatitis, PUD Genitourinary History: Reports: BPH Musculoskeletal History: Reports: Arthritis, Back Pain, Chronic, Osteoarthritis Psychiatric History: Reports: Anxiety, Depression Endocrine/Metabolic History: Reports: Diabetes, Type II Immunologic History: Reports: Other (See Below) Other Immunologic History: Hx of shingles - Infectious Disease History Infectious Disease History: Reports: Shingles - Past Surgical History GI Surgical History: Reports: Cholecystectomy, Colonoscopy Neurological Surgical History: Reports: Laminectomy, Lumbar Spine, Spinal Fusion , Other (See Below) Musculoskeletal Surgical History: Reports: Knee Replacement, Shoulder Surgery Social & Family History - Family History Family Medical History: Noncontributory - Caffeine Use Caffeine Use: Reports: Soda ED ROS GENERAL - Review of Systems Review Of Systems: ROS reveals no pertinent complaints other than HPI. ED EXAM, GENERAL - Physical Exam Exam: See Below Exam Limited By: No Limitations General Appearance: Alert, WD/WN, No Apparent Distress Ears: Normal External Exam, Normal Canal, Hearing Grossly Normal, Normal TMs Nose: Normal Inspection, Normal Mucosa, No Blood Throat/Mouth: Normal Inspection, Normal Lips, Normal Teeth, Normal Gums, Normal Oropharynx, Normal Voice, No Airway Compromise Head: Atraumatic, Normocephalic Neck: Normal Inspection, Supple, Non-Tender, Full Range of Motion Respiratory/Chest: No Respiratory Distress, No Accessory Muscle Use, Decreased Breath Sounds, Wheezing (inspiratory). No: Accessory Muscle Use, Retractions Cardiovascular: Normal Peripheral Pulses, Regular Rate, Rhythm, No Edema, No Gallop, No JVD, No Murmur, No Rub Neurological: Alert, Oriented, CN II-XII Intact, Normal Cognition, Normal Gait, Normal Reflexes, No Motor/Sensory Deficits Psychiatric: Normal Affect, Normal Mood Course - Vital Signs Last Recorded V/S: Last Vital Signs Temp 98.9 F 01/20/19 02:01 Pulse 81 01/20/19 02:01 Resp 20 01/20/19 02:01 BP 175/75 H 01/20/19 02:01 Pulse Ox 93 L 01/20/19 02:01 Departure - Departure Time of Disposition: 02:21 Disposition: Home, Self-Care 01 Condition: Good Clinical Impression: Influenza A COPD (chronic obstructive pulmonary disease) Qualifiers: COPD type: unspecified COPD Qualified Code(s): J44.9 - Chronic obstructive pulmonary disease, unspecified - Discharge Information *PRESCRIPTION DRUG MONITORING PROGRAM REVIEWED*: Not Applicable *COPY OF PRESCRIPTION DRUG MONITORING REPORT IN PATIENT STEPHANIE: Not Applicable Additional Instructions: 1) Duonebs as needed for shortness of breath 2) Continue all other medications 3) Follow up with PCP for recheck if symptoms worsen or do not improve
[2019-01-20] MEDS: Triamcinolone Acetonide 40 MG/ML 1 ML MDV IM ONE (02:30)
== END 2019-01-20 02:35 | disposition home or self-care (01) ==
LOC: CC.ED 01:33
DX: J10.1 Influenza due to other identified influenza virus with other respiratory manifestations (principal); J44.9 Chronic obstructive pulmonary disease, unspecified; E11.9 Type 2 diabetes mellitus without complications; I10 Essential (primary) hypertension; E78.00 Pure hypercholesterolemia, unspecified; F41.9 Anxiety disorder, unspecified; F32.9 Major depressive disorder, single episode, unspecified; Z79.899 Other long term (current) drug therapy; Z79.4 Long term (current) use of insulin; Z88.0 Allergy status to penicillin; Z88.1 Allergy status to other antibiotic agents
CPT/HCPCS: 96372; 99284; J3301; 99283

== ENCOUNTER 2019-01-21 10:35 | Emergency (ER) | payer MEDICARE, OTHER ==
[2019-01-21] MEDS: Dextrose 5%-0.45% NaCl 1,000 ML IV SCH (10:45)
[2019-01-21] MEDS: Metoprolol Tartrate 5 MG/5 ML SDV IVPUSH ONE (10:49)
[2019-01-21] MEDS: 50% Dextrose in Water 50 ML Syringe IVPUSH ONE (10:53)
[2019-01-21 11:03] LABS: O2 DELIVERY DEVICE PARTIAL REBREATHER
[2019-01-21 11:05] LABS: BICARBONATE,ARTERIAL 28.3 mm/L (22.0-26.0); O2 SATURATION ARTERIAL 94 % (95-98); PCO2 ARTERIAL 51 mm/Hg0 (35-45); PO2 ARTERIAL 74 mm/Hg (80-100)
[2019-01-21] MEDS: Acetaminophen 650 MG Supp RECTAL ONE (11:15)
[2019-01-21 11:19] LABS: CHLORIDE,CL 103 mEq/L (98-106); SODIUM,NA 142 mEq/L (136-145)
[2019-01-21] MEDS: Acetaminophen 650 MG Supp ONE ×2 (11:57→12:19)
--- NOTE | 2019-01-21 11:58 | EDM.PDOC ---
ED HPI GENERAL MEDICAL PROBLEM - General Chief Complaint: Diabetic Complaint Stated Complaint: SOB Time Seen by Provider: 01/21/19 10:35 Source of Information: Reports: EMS History Limitations: Reports: Altered Mental Status - History of Present Illness INITIAL COMMENTS - FREE TEXT/NARRATIVE: Patient presents to ER per [facility], unresponsive. EMS states blood sugar was 19 on their arrival, rubbed glutose on his gums. Did note some blood in his mouth and on his face. Blood pressure high at the scene. On our arrival , patient still unresponsive, minimal response to sternal rub, blood sugar 78. relates last known awake time was last evening. Was in ER on early Saturday morning for shortness of breath, felt it was related to his allergies so asked for a Kenalog injection. He had influenza 10 days ago, had a course of Tamiflu. Patient known noncompliant diabetic. History of CKD, currently on dialysis. Plan was for family to be trained to do at home dialysis and was to receive that education tonight. Was down in [place] yesterday for dialysis and education. Onset: Today Duration: Hour(s): Location: Reports: Generalized Associated Symptoms: Reports: Fever/Chills, Shortness of Breath (complaining of shortness of breath once responsive) Treatments ACCESSIONER: Reports: Other (see below) (glutose) - Related Data Allergies Allergy/AdvReac Type Severity Reaction Status Date / Time amoxicillin Allergy Itching Verified 01/21/19 11:32 erythromycin base Allergy Nausea Verified 01/21/19 11:32 penicillin Allergy Swelling Verified 01/21/19 11:32 Home Meds: Home Meds ALPRAZolam [Xanax] 0.25 mg PO Q8H PRN 07/02/15 [History] Insulin Detemir [Levemir] 50 units SQ BEDTIME 07/02/15 [History] Sertraline [Zoloft] 100 tab PO BEDTIME 07/02/15 [History] Simvastatin [Zocor] 20 mg PO BEDTIME 01/25/16 [History] Insulin Lispro [HumaLOG] 10 unit SQ 0800 02/13/16 [History] Insulin Lispro [HumaLOG] 14 unit SQ 1200 02/13/16 [History] Insulin Lispro [HumaLOG] 20 unit SQ 1730 02/13/16 [History] Albuterol [Ventolin HFA] 2 puff INH Q4H PRN 02/15/16 [History] Fluticasone/Salmeterol [Advair Diskus 250-50] 1 puff INH BID 05/28/16 [History] Gemfibrozil [Lopid] 600 mg PO BID 05/28/16 [History] Metoprolol Succinate 100 mg PO DAILY 05/14/18 [History] Ondansetron [Zofran ODT] 4 mg PO Q4H PRN #12 tab.dis 05/14/18 [Rx] Calcitriol 0.25 mcg PO DAILY 06/02/18 [History] Ipratropium/Albuterol Sulfate [Iprat-Albut 0.5-3(2.5) mg/3 ml] 1 inh INH QID PRN 06/02/18 [History] amLODIPine Besylate [Amlodipine Besylate] 10 mg PO DAILY 06/02/18 [History] oxyCODONE ER [OxyCONTIN] 20 mg PO BID 06/02/18 [History] Mirtazapine 15 mg PO BEDTIME 01/21/19 [History] Oseltamivir Phosphate 75 mg PO BID 01/21/19 [History] Past Medical History HEENT History: Reports: Allergic Rhinitis, Other (See Below) Other HEENT History: left eardrum trauma Cardiovascular History: Reports: High Cholesterol, Hypertension, Other (See Below) Other Cardiovascular History: pt states will have to see a autopsy pathologist for possilbe stent placement. Respiratory History: Reports: Asthma, COPD Gastrointestinal History: Reports: Pancreatitis, PUD Genitourinary History: Reports: BPH Musculoskeletal History: Reports: Arthritis, Back Pain, Chronic, Osteoarthritis Psychiatric History: Reports: Anxiety, Depression Endocrine/Metabolic History: Reports: Diabetes, Type II Immunologic History: Reports: Other (See Below) Other Immunologic History: Hx of shingles - Infectious Disease History Infectious Disease History: Reports: Shingles - Past Surgical History GI Surgical History: Reports: Cholecystectomy, Colonoscopy Neurological Surgical History: Reports: Laminectomy, Lumbar Spine, Spinal Fusion , Other (See Below) Musculoskeletal Surgical History: Reports: Knee Replacement, Shoulder Surgery Social & Family History - Family History Family Medical History: Noncontributory - Caffeine Use Caffeine Use: Reports: Soda ED ROS GENERAL - Review of Systems Review Of Systems: Unable To Obtain ED EXAM GENERAL NO PERIP PULSE - Physical Exam Exam: See Below Exam Limited By: Other (patient unresponsive on arrival) General Appearance: Obtunded Ears: Normal External Exam, Normal TMs Nose: Normal Inspection, Normal Mucosa, No Blood Throat/Mouth: Normal Inspection, Other (scant blood in mouth, did suction with small bile returns) Head: Normocephalic Neck: Normal Inspection, Supple, Non-Tender Respiratory/Chest: Decreased Breath Sounds, Crackles, Other (tachypnea) Cardiovascular: Regular Rate, Rhythm, No Edema GI/Abdominal: Normal Bowel Sounds, Soft Extremities: Normal Inspection, Other (hands, feet cool to the touch) Neurological: Unresponsive Skin Exam: Dry, Cool EKG INTERPRETATION Rhythm: NSR Course - Vital Signs Last Recorded V/S: Last Vital Signs Temp Pulse 85 01/21/19 10:49 Resp 38 H 01/21/19 10:35 BP 202/90 H 01/21/19 10:49 Pulse Ox 15 L 01/21/19 10:35 - Orders/Labs/Meds Orders: Active Orders 24 hr Category Date Time Status Chest 1V Frontal [CR] Stat Exams 01/21/19 10:54 Taken CULTURE BLOOD [BC] Stat Lab 01/21/19 11:00 Received Blood Culture x2 Reflex Set [OM.PC] Stat Oth 01/21/19 10:55 Ordered Labs: Laboratory Tests 01/21/19 01/21/19 01/21/19 Range/Units 11:00 11:00 11:00 WBC 15.6 H (5.0-10.0) 10^3/uL RBC 4.65 (4.50-6.00) 10^6/uL Hgb 13.2 L (14.0-18.0) g/dL Hct 41.2 (40.0-54.0) % MCV 88.6 (82.0-94.0) fL MCH 28.4 (27.0-32.0) pg MCHC 32.0 L (33.0-38.0) g/dL RDW Coeff of Cheo 14.5 (11.0-15.0) % Plt Count 290 (150-400) 10^3/uL Add Manual Diff Yes Neutrophils % (Manual) 91 H (35-85) % Lymphocytes % (Manual) 3 L (21-55) % Monocytes % (Manual) 6 (2-12) % Absolute Neutrophils 14.20 H (1.80-7.00) 10^3/uL Lymphocytes # (Manual) 0.47 L (1.00-4.80) 10^3/uL Monocytes # (Manual) 0.94 H (0.00-0.80) 10^3/uL Vacuolated Monocytes Occasional (NOT SEEN) D-Dimer, Quantitative 0.94 H (0.00-0.50) ABG pH (7.35-7.45) ABG pCO2 (35-45) mm/Hg0 ABG pO2 (80-100) mm/Hg ABG HCO3 (22.0-26.0) mm/L ABG O2 Saturation (95-98) % ABG Base Excess (-2.0-3.0) O2 Delivery Device Oxygen Flow Rate Sodium 142 (136-145) mEq/L Potassium 3.9 D (3.5-5.0) mEq/L Chloride 103 (98-106) mEq/L Carbon Dioxide 28 (21-32) mmol/L BUN 22 H D (7-18) mg/dL Creatinine 3.4 H* (0.7-1.3) mg/dL Est Cr Clr Drug Dosing TNP Estimated GFR (MDRD) 18 L (>=60) mL/min Glucose 25 L* D (75-99) mg/dL Lactic Acid (0.4-2.0) mmol/L Calcium 8.9 (8.4-10.1) mg/dL Total Bilirubin 0.5 (0.0-1.0) mg/dL AST 21 (15-37) U/L ALT 11 L (12-78) U/L Alkaline Phosphatase 161 H (46-116) U/L C-Reactive Protein 7.6 H (0.2-0.8) mg/dL NT-Pro-B Natriuret Pep 3024 H (0-1000) pg/mL Total Protein 8.5 H (6.4-8.2) g/dL Albumin 2.9 L (3.4-5.0) g/dL 01/21/19 01/21/19 Range/Units 11:00 11:01 WBC (5.0-10.0) 10^3/uL RBC (4.50-6.00) 10^6/uL Hgb (14.0-18.0) g/dL Hct (40.0-54.0) % MCV (82.0-94.0) fL MCH (27.0-32.0) pg MCHC (33.0-38.0) g/dL RDW Coeff of Cheo (11.0-15.0) % Plt Count (150-400) 10^3/uL Add Manual Diff Neutrophils % (Manual) (35-85) % Lymphocytes % (Manual) (21-55) % Monocytes % (Manual) (2-12) % Absolute Neutrophils (1.80-7.00) 10^3/uL Lymphocytes # (Manual) (1.00-4.80) 10^3/uL Monocytes # (Manual) (0.00-0.80) 10^3/uL Vacuolated Monocytes (NOT SEEN) D-Dimer, Quantitative (0.00-0.50) ABG pH 7.36 (7.35-7.45) ABG pCO2 51 H (35-45) mm/Hg0 ABG pO2 74 L (80-100) mm/Hg ABG HCO3 28.3 H (22.0-26.0) mm/L ABG O2 Saturation 94 L (95-98) % ABG Base Excess 3.0 (-2.0-3.0) O2 Delivery Device Partial rebreather Oxygen Flow Rate 15.0 Sodium (136-145) mEq/L Potassium (3.5-5.0) mEq/L Chloride (98-106) mEq/L Carbon Dioxide (21-32) mmol/L BUN (7-18) mg/dL Creatinine (0.7-1.3) mg/dL Est Cr Clr Drug Dosing Estimated GFR (MDRD) (>=60) mL/min Glucose (75-99) mg/dL Lactic Acid 0.9 (0.4-2.0) mmol/L Calcium (8.4-10.1) mg/dL Total Bilirubin (0.0-1.0) mg/dL AST (15-37) U/L ALT (12-78) U/L Alkaline Phosphatase (46-116) U/L C-Reactive Protein (0.2-0.8) mg/dL NT-Pro-B Natriuret Pep (0-1000) pg/mL Total Protein (6.4-8.2) g/dL Albumin (3.4-5.0) g/dL Meds: Medications Discontinued Medications Generic Name Dose Route Start Last Admin Trade Name Norma PRN Reason Stop Dose Admin Acetaminophen Confirm 01/21/19 11:02 01/21/19 11:57 Tylenol Administered 01/21/19 11:03 Not Given Dose 650 mg .ROUTE .STK-MED ONE Acetaminophen Confirm 01/21/19 11:02 01/21/19 12:19 Tylenol Administered 01/21/19 11:03 Not Given Dose 650 mg .ROUTE .STK-MED ONE Acetaminophen 650 mg 01/21/19 11:15 01/21/19 11:15 Tylenol RECTAL 01/21/19 11:16 650 mg NOW ONE Administration Ceftriaxone Sodium 1 gm 01/21/19 12:00 01/21/19 12:02 Rocephin IVPUSH 1 gm Q24H PRAVEEN Administration Dextrose/Water Confirm 01/21/19 10:22 01/21/19 12:23 Dextrose 50% In Water Administered 01/21/19 10:23 Not Given Dose 50 ml .ROUTE .STK-MED ONE Dextrose/Water 50 ml 01/21/19 10:53 01/21/19 10:53 Dextrose 50% In Water IVPUSH 01/21/19 10:54 50 ml ONETIME ONE Administration Dextrose/Sodium Chloride Confirm 01/21/19 10:30 01/21/19 12:19 Dextrose 5%-1/2 Ns Administered 01/21/19 10:31 Not Given Dose 1,000 mls @ as directed .ROUTE .STK-MED ONE Dextrose/Sodium Chloride 1,000 mls @ 250 mls/hr 01/21/19 10:45 01/21/19 10:45 Dextrose 5%-1/2 Ns IV 250 mls/hr ASDIRECTED PRAVEEN Administration Metoprolol Tartrate Confirm 01/21/19 10:35 01/21/19 12:17 Lopressor Administered 01/21/19 10:36 Not Given Dose 5 mg .ROUTE .STK-MED ONE Metoprolol Tartrate 5 mg 01/21/19 10:49 01/21/19 10:49 Lopressor IVPUSH 01/21/19 10:50 5 mg ONETIME ONE Administration - Re-Assessments/Exams Free Text/Narrative Re-Assessment/Exam: 03/06/19 1035 patient unresponsive on arrival. Blood sugar checked 78. IV started with D51/ 2 NS at 250 ml/hr. Oxygen on at 15 liters per NRB mask. Tachypnea noted. Sats 93% on 15 liters. Labs and EKG obtained. Blood pressure high on arrival 217/101. Ultimately with repeat blood pressure being high, given metoprolol 5 mg IV once IV established. blood sugar did again drop to 25. One amp of D50 given with blood sugar response of 181. Patient started to arouse, initially uncooperative. Did eventually settle, became more alert and oriented. Chest xray was done, shows RLL pneumonia. Was given Tylenol suppository for fever. Labs all reviewed. Dr. Skinner aware of patient and was in to evaluate patient as well. Rocephin 1 gm IV given. [address] [place] [address] One call contacted and spoke with Dr. Hinkle, hospitalist. Agreed to accept the patient in transfer. risks and benefits of transfer discussed with and patient. Risks of transfer include worsening of condition, vehicle crash or . Benefits of transfer include higher level of care, critical care monitoring, dialysis capabilities. Risks of non transfer include worsening condition and . Benefits of non transfer include care close to home. Patient and agree to transfer. Departure - Departure Time of Disposition: 12:15 Disposition: DC/Tfer to Acute Hospital 02 Condition: Undetermined Clinical Impression: RLL pneumonia, Hypoglycemia, CKD (chronic kidney disease) requiring chronic dialysis - Discharge Information *PRESCRIPTION DRUG MONITORING PROGRAM REVIEWED*: No *COPY OF PRESCRIPTION DRUG MONITORING REPORT IN PATIENT STEPHANIE: No Referrals: Eugene Skinner MD [Primary Care Provider] - Forms: ED Department Discharge Additional Instructions: Transfer ALS to [facility] to Dr. Hinkle - My Orders Last 24 Hours: My Active Orders 01/21/19 10:54 Chest 1V Frontal [CR] Stat 01/21/19 10:55 Blood Culture x2 Reflex Set [OM.PC] Stat 01/21/19 11:00 CULTURE BLOOD [BC] Stat - Assessment/Plan Last 24 Hours: My Active Orders 01/21/19 10:54 Chest 1V Frontal [CR] Stat 01/21/19 10:55 Blood Culture x2 Reflex Set [OM.PC] Stat 01/21/19 11:00 CULTURE BLOOD [BC] Stat
[2019-01-21] MEDS: cefTRIAXone 1 GM Vial IVPUSH SCH (12:02)
[2019-01-21] MEDS: Metoprolol Tartrate 5 MG/5 ML SDV ONE (12:17)
[2019-01-21] MEDS: Dextrose 5%-0.45% NaCl 1,000 ML ONE (12:19)
[2019-01-21] MEDS: 50% Dextrose in Water 50 ML Syringe ONE (12:23)
[2019-01-21 12:31] VITALS: BP 217/101
== END 2019-01-21 12:55 ==
LOC: CC.ED 10:35
DX: J18.1 Lobar pneumonia, unspecified organism (principal); E16.2 Hypoglycemia, unspecified; E11.649 Type 2 diabetes mellitus with hypoglycemia without coma; E11.22 Type 2 diabetes mellitus with diabetic chronic kidney disease; I12.9 Hypertensive chronic kidney disease with stage 1 through stage 4 chronic kidney disease, or unspecified chronic kidney disease; N18.9 Chronic kidney disease, unspecified; F41.9 Anxiety disorder, unspecified; F32.9 Major depressive disorder, single episode, unspecified; Z79.4 Long term (current) use of insulin; Z79.899 Other long term (current) drug therapy; Z88.0 Allergy status to penicillin; Z88.1 Allergy status to other antibiotic agents
CPT/HCPCS: 36415; 36600; 71045; 80053; 82803; 83605; 83880; 85025; 85379; 86140; 87040; 93005; 96361; 96374; 96375; 99285-25; A9270-GY; J0696; J3490; J7042; J7060

== ENCOUNTER 2019-01-27 13:21 | Observation (INO) | payer MEDICARE, OTHER ==
[2019-01-27 14:04] LABS: CHLORIDE,CL 89 mEq/L (98-106); SODIUM,NA 130 mEq/L (136-145)
[2019-01-27 14:23] LABS: O2 DELIVERY DEVICE NASAL CANNULA
[2019-01-27 14:24] LABS: BICARBONATE,ARTERIAL 18.1 mm/L (22.0-26.0); O2 SATURATION ARTERIAL 94 % (95-98); PCO2 ARTERIAL 37 mm/Hg0 (35-45); PO2 ARTERIAL 78 mm/Hg (80-100)
[2019-01-27] MEDS ORDERED: Naloxone 2 MG/2 ML Syringe ONE (14:28)
[2019-01-27] MEDS ORDERED: Naloxone 2 MG/2 ML Syringe IVPUSH ONE (15:25)
[2019-01-27] MEDS ORDERED: oxyCODONE 5 MG Tab PO PRN (18:21)
[2019-01-27] MEDS ORDERED: Levofloxacin 500 MG Tab PO SCH (18:21)
[2019-01-27] MEDS ORDERED: Sodium Chloride 0.9% 10 ML Syringe FLUSH PRN (18:21)
[2019-01-27] MEDS ORDERED: Acetaminophen 325 MG Tab PO PRN (18:21)
[2019-01-27] MEDS ORDERED: Albuterol/Ipratropium 3.0-0.5 MG/3 ML Neb Soln INH PRN (18:21)
[2019-01-27] MEDS ORDERED: Ondansetron 4 MG Tab.DIS PO PRN (18:21)
[2019-01-27] MEDS ORDERED: LORazepam 0.5 MG Tab PO PRN (18:21)
--- NOTE | 2019-01-27 18:22 | EDM.PDOC ---
ED HPI GENERAL MEDICAL PROBLEM - General Chief Complaint: Neuro Symptoms/Deficits Stated Complaint: altered mental status Time Seen by Provider: 01/27/19 13:28 Source of Information: Reports: Patient, EMS, Family () History Limitations: Reports: Altered Mental Status - History of Present Illness INITIAL COMMENTS - FREE TEXT/NARRATIVE: Barron is a 63 yo male who presents to the ED via [facility]. He was transferred from here d/t pneumonia s/p influenza on 01/21/19 to [facility] and was discharged home yesterday evening. who is present states he has been very sleepy since discharge and today he became really lethargic so she called 911. He ended up having a RLL pneumonia after Influenza. Barron has end stage renal disease. She states Barron had dialysis on Saturday in [place] and is suppose to have dialysis again tomorrow morning in [place]. Upon arrival patient is drowsy and does open eyes to his name. Is alert and orientated to person and place. Stroke protocol started. Bedside glucose 191. Consulted with in regards to his medications and whether or not he may have taken more of his medications than he is suppose to. She admits it is very likely he has but she isn't exactly sure. She states he has been having a lot of anxiety lately and kept asking the staff at [facility] for his anxiety medication. She states he seemed to never get comfortable. - Related Data Allergies Allergy/AdvReac Type Severity Reaction Status Date / Time amoxicillin Allergy Itching Verified 01/27/19 14:56 erythromycin base Allergy Nausea Verified 01/27/19 14:56 penicillin Allergy Swelling Verified 01/27/19 14:56 Home Meds: Home Meds ALPRAZolam [Xanax] 0.25 mg PO Q8H PRN 07/02/15 [History] Insulin Detemir [Levemir] 50 units SQ BEDTIME 07/02/15 [History] Sertraline [Zoloft] 100 tab PO BEDTIME 07/02/15 [History] Simvastatin [Zocor] 20 mg PO BEDTIME 01/25/16 [History] Insulin Lispro [HumaLOG] 10 unit SQ 0800 02/13/16 [History] Insulin Lispro [HumaLOG] 14 unit SQ 1200 02/13/16 [History] Insulin Lispro [HumaLOG] 20 unit SQ 1730 02/13/16 [History] Albuterol [Ventolin HFA] 2 puff INH Q4H PRN 02/15/16 [History] Fluticasone/Salmeterol [Advair Diskus 250-50] 1 puff INH BID 05/28/16 [History] Gemfibrozil [Lopid] 600 mg PO BID 05/28/16 [History] Metoprolol Succinate 100 mg PO DAILY 05/14/18 [History] Ondansetron [Zofran ODT] 4 mg PO Q4H PRN #12 tab.dis 05/14/18 [Rx] Calcitriol 0.25 mcg PO DAILY 06/02/18 [History] Ipratropium/Albuterol Sulfate [Iprat-Albut 0.5-3(2.5) mg/3 ml] 1 inh INH QID PRN 06/02/18 [History] amLODIPine Besylate [Amlodipine Besylate] 10 mg PO DAILY 06/02/18 [History] oxyCODONE ER [OxyCONTIN] 20 mg PO BID 06/02/18 [History] Mirtazapine 15 mg PO BEDTIME 01/21/19 [History] Past Medical History HEENT History: Reports: Allergic Rhinitis, Other (See Below) Other HEENT History: left eardrum trauma Cardiovascular History: Reports: High Cholesterol, Hypertension, Other (See Below) Other Cardiovascular History: pt states will have to see a acetylene cutter for possilbe stent placement. Respiratory History: Reports: Asthma, COPD Gastrointestinal History: Reports: Pancreatitis, PUD Genitourinary History: Reports: BPH Musculoskeletal History: Reports: Arthritis, Back Pain, Chronic, Osteoarthritis Psychiatric History: Reports: Anxiety, Depression Endocrine/Metabolic History: Reports: Diabetes, Type II Immunologic History: Reports: Other (See Below) Other Immunologic History: Hx of shingles - Infectious Disease History Infectious Disease History: Reports: Shingles - Past Surgical History GI Surgical History: Reports: Cholecystectomy, Colonoscopy Neurological Surgical History: Reports: Laminectomy, Lumbar Spine, Spinal Fusion , Other (See Below) Musculoskeletal Surgical History: Reports: Knee Replacement, Shoulder Surgery Social & Family History - Family History Family Medical History: Noncontributory - Tobacco Use Smoking Status *Q: Former Smoker Used Tobacco, but Quit: Yes Month/Year Tobacco Last Used: many years ago - Caffeine Use Caffeine Use: Reports: Soda ED ROS GENERAL - Review of Systems Review Of Systems: See Below Constitutional: Reports: Malaise. Denies: Fever, Chills HEENT: Reports: No Symptoms Respiratory: Reports: No Symptoms Cardiovascular: Reports: No Symptoms GI/Abdominal: Reports: No Symptoms Skin: Reports: No Symptoms Neurological: Reports: Weakness Psychiatric: Reports: Anxiety - Physical Exam Exam: See Below Exam Limited By: Altered Mental Status General Appearance: Alert, Anxious, Lethargic Nose: Normal Inspection, No Blood Throat/Mouth: Normal Inspection, Normal Lips, Normal Teeth, Normal Gums, Normal Oropharynx, Normal Voice, No Airway Compromise Head Exam: Atraumatic, Normocephalic Neck: Normal Inspection Respiratory/Chest: No Respiratory Distress, Lungs Clear, Normal Breath Sounds, No Accessory Muscle Use Cardiovascular: Regular Rate, Rhythm, No Edema, No Murmur GI/Abdominal: Normal Bowel Sounds, Soft, Non-Tender Neuro Exam (Abbreviated): Alert, Slow to Respond. No: Confused, Disoriented, Unresponsive, Memory Loss Remote Events, Memory Loss Recent Events, Sensory/ Motor Deficit Extremities: Normal Inspection, No Pedal Edema, Normal Capillary Refill Psychiatric: Normal Affect, Normal Mood, Anxious Skin Exam: Warm, Dry, Intact, Normal Color, No Rash EKG INTERPRETATION EKG Date: 01/27/19 Time: 13:40 Rhythm: NSR Rate (Beats/Min): 74 QRS: RBBB Comparison: NA - No Prior EKG Course - Vital Signs Last Recorded V/S: Last Vital Signs Temp 96.1 F 01/27/19 13:24 Pulse 89 01/27/19 16:45 Resp 20 01/27/19 16:45 BP 156/86 H 01/27/19 16:45 Pulse Ox 92 L 01/27/19 16:45 - Orders/Labs/Meds Orders: Active Orders 24 hr Category Date Time Status Chest 1V Frontal [CR] Stat Exams 01/27/19 14:12 Taken Head wo Cont [CT] Stat Exams 01/27/19 13:34 Taken DRUG SCREEN URINE BIORAD [URCHEM] Stat Lab 01/27/19 14:12 Ordered UA RFX CHELA AND CULT IF INDIC [URIN] Stat Lab 01/27/19 14:12 Ordered Medication Orders Acetaminophen (Tylenol) 650 mg PO Q4H PRN PRN Reason: Pain (Mild 1-3)/fever Albuterol/Ipratropium (Duoneb 3.0-0.5 Mg/3 Ml) ml INH QID PRN PRN Reason: Shortness of Breath Calcitriol (Rocaltrol) 0.25 mcg PO DAILY [facility] Gemfibrozil (Lopid) 600 mg PO BID [facility] Levofloxacin (Levaquin) 500 mg PO Q24H [facility] Stop: 01/29/19 18:22 Lorazepam (Ativan) 0.25 mg PO BID PRN PRN Reason: Anxiety Non-Formulary Medication (Albuterol) 2 puff INH Q4H PRN PRN Reason: Dyspnea Non-Formulary Medication (Amlodipine Besylate [Amlodipine Besylate]) 10 mg PO DAILY [facility] Non-Formulary Medication (Fluticasone/Salmeterol [Advair Diskus 250-50]) 1 puff INH BID [facility] Non-Formulary Medication (Insulin Detemir) 50 units SQ BEDTIME [facility] Non-Formulary Medication (Insulin Lispro [Humalog]) 10 unit SQ 0800 [facility] Non-Formulary Medication (Insulin Lispro [Humalog]) 14 unit SQ 1200 [facility] Non-Formulary Medication (Insulin Lispro [Humalog]) 20 unit SQ 1730 [facility] Non-Formulary Medication (Metoprolol Succinate [Metoprolol Succinate]) 100 mg PO DAILY [facility] Ondansetron HCl (Zofran Odt) 4 mg PO Q4H PRN PRN Reason: Vomiting Oxycodone HCl (Oxycodone) 5 mg PO Q8H PRN PRN Reason: Pain (moderate 4-6) Sertraline HCl (Zoloft) mg PO BEDTIME [facility] Simvastatin (Zocor) 20 mg PO BEDTIME [facility] Sodium Chloride (Saline Flush) 10 ml FLUSH ASDIRECTED PRN PRN Reason: Keep Vein Open Labs: Laboratory Tests 01/27/19 01/27/19 01/27/19 Range/Units 13:34 13:34 13:40 WBC 14.7 H (5.0-10.0) 10^3/uL RBC 4.99 (4.50-6.00) 10^6/uL Hgb 14.0 (14.0-18.0) g/dL Hct 42.3 (40.0-54.0) % MCV 84.8 (82.0-94.0) fL MCH 28.1 (27.0-32.0) pg MCHC 33.1 (33.0-38.0) g/dL RDW Coeff of Cheo 14.2 (11.0-15.0) % Plt Count 395 (150-400) 10^3/uL Neut % (Auto) 83.4 (35-85) % Lymph % (Auto) 7.1 L (10-55) % [place] % (Auto) 9.3 (0-16) % Eos % (Auto) 0.1 (0-5) % Baso % (Auto) 0.1 (0-3) % Neut # (Auto) 12.25 H (1.80-7.00) 10^3/uL Lymph # (Auto) 1.04 (1.00-4.80) 10^3/uL [place] # (Auto) 1.37 H (0.00-0.80) 10^3/uL Eos # (Auto) 0.02 (0.00-0.45) 10^3/uL Baso # (Auto) 0.01 10^3/uL PT 25.5 H (9.7-12.3) SEC INR 2.63 H (0.92-1.18) APTT 51.3 H (23.2-32.3) SEC ABG pH (7.35-7.45) ABG pCO2 (35-45) mm/Hg0 ABG pO2 (80-100) mm/Hg ABG HCO3 (22.0-26.0) mm/L ABG O2 Saturation (95-98) % ABG Base Excess (-2.0-3.0) O2 Delivery Device Sodium 130 L (136-145) mEq/L Potassium 5.0 D (3.5-5.0) mEq/L Chloride 89 L (98-106) mEq/L Carbon Dioxide 21 (21-32) mmol/L BUN 80 H* D (7-18) mg/dL Creatinine 7.9 H* D (0.7-1.3) mg/dL Est Cr Clr Drug Dosing TNP Estimated GFR (MDRD) 7 L (>=60) mL/min Glucose 181 H D (75-99) mg/dL Calcium 9.4 (8.4-10.1) mg/dL Total Bilirubin 0.4 (0.0-1.0) mg/dL AST 37 (15-37) U/L ALT 35 (12-78) U/L Alkaline Phosphatase 129 H (46-116) U/L Creatine Kinase 102 (35-232) U/L Troponin I 0.060 (0.00-0.06) ng/mL Total Protein 8.2 (6.4-8.2) g/dL Albumin 2.8 L (3.4-5.0) g/dL 01/27/19 Range/Units 14:12 WBC (5.0-10.0) 10^3/uL RBC (4.50-6.00) 10^6/uL Hgb (14.0-18.0) g/dL Hct (40.0-54.0) % MCV (82.0-94.0) fL MCH (27.0-32.0) pg MCHC (33.0-38.0) g/dL RDW Coeff of Cheo (11.0-15.0) % Plt Count (150-400) 10^3/uL Neut % (Auto) (35-85) % Lymph % (Auto) (10-55) % [place] % (Auto) (0-16) % Eos % (Auto) (0-5) % Baso % (Auto) (0-3) % Neut # (Auto) (1.80-7.00) 10^3/uL Lymph # (Auto) (1.00-4.80) 10^3/uL [place] # (Auto) (0.00-0.80) 10^3/uL Eos # (Auto) (0.00-0.45) 10^3/uL Baso # (Auto) 10^3/uL PT (9.7-12.3) SEC INR (0.92-1.18) APTT (23.2-32.3) SEC ABG pH 7.29 L (7.35-7.45) ABG pCO2 37 (35-45) mm/Hg0 ABG pO2 78 L (80-100) mm/Hg ABG HCO3 18.1 L (22.0-26.0) mm/L ABG O2 Saturation 94 L (95-98) % ABG Base Excess -8.0 L (-2.0-3.0) O2 Delivery Device Nasal cannula Sodium (136-145) mEq/L Potassium (3.5-5.0) mEq/L Chloride (98-106) mEq/L Carbon Dioxide (21-32) mmol/L BUN (7-18) mg/dL Creatinine (0.7-1.3) mg/dL Est Cr Clr Drug Dosing Estimated GFR (MDRD) (>=60) mL/min Glucose (75-99) mg/dL Calcium (8.4-10.1) mg/dL Total Bilirubin (0.0-1.0) mg/dL AST (15-37) U/L ALT (12-78) U/L Alkaline Phosphatase (46-116) U/L Creatine Kinase (35-232) U/L Troponin I (0.00-0.06) ng/mL Total Protein (6.4-8.2) g/dL Albumin (3.4-5.0) g/dL Meds: Medications Generic Name Dose Route Start Last Admin Trade Name Freq PRN Reason Stop Dose Admin Acetaminophen 650 mg 01/27/19 18:21 Tylenol PO Q4H PRN Pain (Mild 1-3)/fever Albuterol/Ipratropium ml 01/27/19 18:21 Duoneb 3.0-0.5 Mg/3 Ml INH QID PRN Shortness of Breath Calcitriol 0.25 mcg 01/28/19 08:00 Rocaltrol PO DAILY [facility] Gemfibrozil 600 mg 01/27/19 20:00 Lopid PO BID [facility] Levofloxacin 500 mg 01/27/19 18:21 Levaquin PO 01/29/19 18:22 Q24H [facility] Lorazepam 0.25 mg 01/27/19 18:21 Ativan PO BID PRN Anxiety Non-Formulary Medication 2 puff 01/27/19 18:21 Albuterol INH Q4H PRN Dyspnea Non-Formulary Medication 10 mg 01/28/19 08:00 Amlodipine Besylate [Amlodipine Besylate] PO DAILY [facility] Non-Formulary Medication 1 puff 01/27/19 20:00 Fluticasone/Salmeterol [Advair Diskus 250-50] INH BID [facility] Non-Formulary Medication 50 units 01/27/19 20:00 Insulin Detemir SQ BEDTIME [facility] Non-Formulary Medication 10 unit 01/28/19 08:00 Insulin Lispro [Humalog] SQ 0800 [facility] Non-Formulary Medication 14 unit 01/28/19 12:00 Insulin Lispro [Humalog] SQ 1200 [facility] Non-Formulary Medication 20 unit 01/28/19 17:30 Insulin Lispro [Humalog] SQ 1730 [facility] Non-Formulary Medication 100 mg 01/28/19 08:00 Metoprolol Succinate [Metoprolol Succinate] PO DAILY [facility] Ondansetron HCl 4 mg 01/27/19 18:21 Zofran Odt PO Q4H PRN Vomiting Oxycodone HCl 5 mg 01/27/19 18:21 Oxycodone PO Q8H PRN Pain (moderate 4-6) Sertraline HCl mg 01/27/19 20:00 Zoloft PO BEDTIME [facility] Simvastatin 20 mg 01/27/19 20:00 Zocor PO BEDTIME [facility] Sodium Chloride 10 ml 01/27/19 18:21 Saline Flush FLUSH ASDIRECTED PRN Keep Vein Open Discontinued Medications Generic Name Dose Route Start Last Admin Trade Name Freq PRN Reason Stop Dose Admin Naloxone HCl Confirm 01/27/19 14:28 01/27/19 16:03 Narcan Administered 01/27/19 14:29 Not Given Dose 2 mg .ROUTE .STK-MED ONE Naloxone HCl 1 mg 01/27/19 15:25 01/27/19 15:25 Narcan IVPUSH 01/27/19 15:26 1 mg ONETIME ONE Administration Departure - Departure Time of Disposition: 18:21 Disposition: Refer to Observation Condition: Undetermined Clinical Impression: CKD (chronic kidney disease) requiring chronic dialysis Altered mental status Qualifiers: Altered mental status type: somnolence Qualified Code(s): R40.0 - Somnolence - Discharge Information - Problem List & Annotations (1) Altered mental status SNOMED Code(s): 966365759 Code(s): R41.82 - ALTERED MENTAL STATUS, UNSPECIFIED Status: Acute Current Visit: Yes Qualifiers: Altered mental status type: somnolence Qualified Code(s): R40.0 - Somnolence (2) CKD (chronic kidney disease) requiring chronic dialysis SNOMED Code(s): 290083080 Code(s): N18.6 - END STAGE RENAL DISEASE; Z99.2 - DEPENDENCE ON RENAL DIALYSIS Status: Acute Current Visit: Yes - My Orders Last 24 Hours: My Active Orders 01/27/19 13:34 Head wo Cont [CT] Stat 01/27/19 14:12 Chest 1V Frontal [CR] Stat DRUG SCREEN URINE BIORAD [URCHEM] Stat UA RFX CHELA AND CULT IF INDIC [URIN] Stat - Assessment/Plan Admission H&P: Please use this note as an admission H&P Last 24 Hours: My Active Orders 01/27/19 13:34 Head wo Cont [CT] Stat 01/27/19 14:12 Chest 1V Frontal [CR] Stat DRUG SCREEN URINE BIORAD [URCHEM] Stat UA RFX CHELA AND CULT IF INDIC [URIN] Stat Plan: Barron was very somnolent upon arrival. He was arousable and would answer all questions appropriately. CT of the brain was negative via Radiologist. Elected to proceed with Narcan d/t concerns of overdose of current narcotic and benzodiazepine use. Immediately Barron was awake and oxygen saturation did improve to 98%. Respirations improved to 18-20 as well. Concerns of medication overdose. Consulted with hospitalist at [facility] in [place] who recommended monitoring Xanax and Oxycodone use. Discussed Barron's current labs and compared to his labs at discharge in [place] with hospitalist. Recommend to continue fluid restrictions. Creatinine is 7.9 with a BUN of 80. Dr. Skinner is aware of Barron's condition and accepted admission. Contacted Lori Tracy, who is aware of admission. was in agreement. She will consult with his ekg manager in am to discuss dialysis.
[2019-01-27] MEDS ORDERED: Albuterol 8 GM Inhaler INH PRN (18:34)
[2019-01-27] MEDS ORDERED: Levofloxacin/Dextrose 5%-Water 250 MG in Premix Bag 1 BAG IV SCH (19:00)
[2019-01-27] MEDS ORDERED: Insulin Aspart 100 Units/ML 3 ML Pen SUBCUT SCH (19:00)
[2019-01-27] MEDS ORDERED: Levofloxacin 500 MG Tab PO ONE (19:00)
[2019-01-27] MEDS: GEMFIBROZIL 600 MG PO SCH (19:06)
[2019-01-27] MEDS ORDERED: SIMVASTATIN 40 MG PO SCH (20:00)
[2019-01-27] MEDS ORDERED: Insulin Glarg,Human.Rec.Analog 100 UNIT/ML ML SUBCUT SCH (20:00)
[2019-01-27] MEDS ORDERED: SALMETEROL INH SCH (20:00)
[2019-01-27] MEDS ORDERED: SERTRALINE 100 MG PO SCH (20:00)
[2019-01-27] MEDS ORDERED: FLUTICASONE INH SCH (20:00)
[2019-01-27] MEDS ORDERED: Insulin Glarg,Human.Rec.Analog 100 UNIT/ML ML SUBCUT ONE (20:53)
[2019-01-28] MEDS ORDERED: Calcitriol 0.25 MCG Cap PO SCH (08:00)
[2019-01-28] MEDS ORDERED: Metoprolol Succinate 100 MG Tab.ER PO SCH (08:00)
[2019-01-28] MEDS ORDERED: **PTOM** amLODIPine 10 MG Tab PO SCH (08:00)
[2019-01-28] MEDS ORDERED: Insulin Aspart 100 Units/ML 3 ML Pen SUBCUT SCH (08:00)
[2019-01-28] MEDS ORDERED: Insulin Lispro 100 UNIT/ML 10 ML VIAL SUBCUT SCH ×3 (08:23→12:00)
[2019-01-28] MEDS ORDERED: CALCITRIOL 0.5 MCG PO SCH (08:30)
[2019-01-28 09:06] VITALS: BP 139/77
[2019-01-28] MEDS: GEMFIBROZIL 600 MG PO SCH (09:29)
--- NOTE | 2019-01-28 21:53 | PCM.DCSUM1 ---
Discharge Summary - Hospital Course Free Text/Narrative:: Barron presented to ER per [facility] due to lethargy. states he has been sleepy/lethargic since getting discharged from [facility] yesterday. He was transferred out last week after developing pneumonia following Influenza virus. Barron does have end stage renal disease and is on dialysis. Last had on Saturday in [place] and was supposed to again have on Saturday in [place]. On presentation to the ER, patient was drowsy, opens eyes to command. Alert and oriented to person and place. unsure what medications he may or may not have taken during the day. He had been having more anxiety both at [place] and at home. Stroke protocol was initiated. Blood sugar was stable at 191 on arrival. Labs essentially negative for concern. Chest xray much improved. Patient was given 1 mg of Narcan and he became much more responsive. Was admitted for neurological monitoring. Diagnosis: Stroke: No - Discharge Data Discharge Date: 01/28/19 Discharge Disposition: DC/Tfer to Acute Hospital 02 Condition: Good - Patient Summary/Data Complications: none Hospital Course: Patient has minimal vocalizations this am, states "help me" but does recognize and this provider. Oriented to person. Not eating well. Did ask for orange juice but only took sips of it. Vital signs have been stable. Oxygen sats are good on room air. Has not had any insulin or meds this am. Concerns noted with home meds, pharmacy reviewed with . Has both and new medications and unsure what he has been taking. Was to get dialysis in [place] this am. [facility] did call and did not feel patient was stable enough yet for training/home dialysis to be done. [place] needed inpatient dialysis yet. Concerns of home safety with this patient. also dealing with her own medical problems, does not seem aware enough to care for patient and all of his needs. Labs worsened this am. Creatinine up to 9.3, BUN 89. Sodium 131. Contacted hospitalist at [facility] with patient status. Did accept patient in transfer. BLS arranged. Will receive inpatient dialysis there. aware. - Patient Instructions Diet: Diabetic Diet Activity: As Tolerated - Discharge Plan *PRESCRIPTION DRUG MONITORING PROGRAM REVIEWED*: No *COPY OF PRESCRIPTION DRUG MONITORING REPORT IN PATIENT STEPHANIE: No Home Medications: Home Meds ALPRAZolam [Xanax] 0.5 mg PO Q8H PRN 07/02/15 [History] Insulin Detemir [Levemir] 50 units SQ BEDTIME 07/02/15 [History] Sertraline [Zoloft] 100 tab PO BEDTIME 07/02/15 [History] Simvastatin [Zocor] 20 mg PO BEDTIME 01/25/16 [History] Insulin Lispro [HumaLOG] 10 unit SQ 0800 02/13/16 [History] Insulin Lispro [HumaLOG] 14 unit SQ 1200 02/13/16 [History] Insulin Lispro [HumaLOG] 20 unit SQ 1730 02/13/16 [History] Albuterol [Ventolin HFA] 2 puff INH Q4H PRN 02/15/16 [History] Fluticasone/Salmeterol [Advair Diskus 250-50] 1 puff INH BID 05/28/16 [History] Gemfibrozil [Lopid] 600 mg PO BID 05/28/16 [History] Metoprolol Succinate 100 mg PO DAILY 05/14/18 [History] Ondansetron [Zofran ODT] 4 mg PO Q4H PRN #12 tab.dis 05/14/18 [Rx] Calcitriol 0.5 mcg PO DAILY 06/02/18 [History] Ipratropium/Albuterol Sulfate [Iprat-Albut 0.5-3(2.5) mg/3 ml] 1 inh INH QID PRN 06/02/18 [History] amLODIPine Besylate [Amlodipine Besylate] 10 mg PO DAILY 06/02/18 [History] oxyCODONE ER [OxyCONTIN] 20 mg PO BID 06/02/18 [History] Mirtazapine 15 mg PO BEDTIME 01/21/19 [History] Calcium Acetate 667 mg PO TIDMEALS 01/28/19 [History] Mirtazapine 15 mg PO BEDTIME 01/28/19 [History] Forms: ED Department Discharge Referrals: Eugene Skinner MD [Primary Care Provider] - - Discharge Summary/Plan Comment DC Time >30 min.: Yes Discharge Summary/Plan Comment: Transfer BLS to [facility]. Time for exam/with reviewing meds/status 15 minutes Time to arrange transfer 15 minutes Time for orders and documentation 20 minutes - General Info Date of Service: 01/28/19 Admission Dx/Problem (Free Text: Altered Mental Status Functional Status: Reports: Pain Controlled. Denies: Tolerating Diet, Ambulating, Urinating - Review of Systems General: Reports: Weakness, Fatigue, Other (patient does not admit to any concerns or complaints, just states "help me") - Patient Data Vitals - Most Recent: Last Vital Signs Temp 97.7 F 01/28/19 08:00 Pulse 83 01/28/19 08:00 Resp 20 01/28/19 08:00 BP 139/77 01/28/19 08:00 Pulse Ox 96 01/28/19 08:00 Weight - Most Recent: 155 lb I&O - Last 24 hours: Intake & Output 01/28/19 01/28/19 01/28/19 06:59 14:59 22:59 Intake Total 100 Output Total 0 Balance 100 Lab Results - Last 24 hrs: Laboratory Results - last 24 hr 01/27/19 01/27/19 01/28/19 Range/Units 18:20 18:20 07:05 WBC 10.7 H (5.0-10.0) 10^3/uL RBC 4.81 (4.50-6.00) 10^6/uL Hgb 13.5 L (14.0-18.0) g/dL Hct 41.0 (40.0-54.0) % MCV 85.2 (82.0-94.0) fL MCH 28.1 (27.0-32.0) pg MCHC 32.9 L (33.0-38.0) g/dL RDW Coeff of Cheo 14.1 (11.0-15.0) % Plt Count 337 (150-400) 10^3/uL Neut % (Auto) 78.1 (35-85) % Lymph % (Auto) 9.4 L (10-55) % [place] % (Auto) 11.8 (0-16) % Eos % (Auto) 0.5 (0-5) % Baso % (Auto) 0.2 (0-3) % Neut # (Auto) 8.36 H (1.80-7.00) 10^3/uL Lymph # (Auto) 1.00 (1.00-4.80) 10^3/uL Bland # (Auto) 1.26 H (0.00-0.80) 10^3/uL Eos # (Auto) 0.05 (0.00-0.45) 10^3/uL Baso # (Auto) 0.02 10^3/uL Sodium (136-145) mEq/L Potassium (3.5-5.0) mEq/L Chloride (98-106) mEq/L Carbon Dioxide (21-32) mmol/L BUN (7-18) mg/dL Creatinine (0.7-1.3) mg/dL Est Cr Clr Drug Dosing mL/min Estimated GFR (MDRD) (>=60) mL/min Glucose (75-99) mg/dL POC Glucose (75-105) mg/dl Calcium (8.4-10.1) mg/dL Urine Color Yellow (YELLOW) Urine Appearance Slightly cloudy (CLEAR) Urine pH 7.0 (4.5-8.0) Ur Specific [place] 1.020 (1.003-1.020) Urine Protein >=300 H (NEGATIVE) mg/dL Urine Glucose (UA) 250 H (NEGATIVE) mg/dL Urine Ketones Negative (NEGATIVE) mg/dL Urine Occult Blood Small H (NEGATIVE) Urine Nitrite Negative (NEGATIVE) Urine Bilirubin Negative (NEGATIVE) Urine Urobilinogen 0.2 (0.2-1.0) EU/dL Ur Leukocyte Esterase Negative (NEGATIVE) Urine RBC 5-10 H (0-5) /HPF Urine WBC Not seen (0-5) /HPF Ur Epithelial Cells Occasional H (NOT SEEN) /HPF Amorphous Sediment Many H (NOT SEEN) /HPF Urine Opiates Screen Negative (NEGATIVE) Ur Oxycodone Screen Positive H (NEGATIVE) Urine Methadone Screen Negative (NEGATIVE) Ur Barbiturates Screen Negative (NEGATIVE) U Tricyclic Antidepress Negative (NEGATIVE) Ur Phencyclidine Scrn Negative (NEGATIVE) Ur Amphetamine Screen Negative (NEGATIVE) U Methamphetamines Scrn Negative (NEGATIVE) Urine MDMA Screen Negative (NEGATIVE) U Benzodiazepines Scrn Positive H (NEGATIVE) Urine Cocaine Screen Negative (NEGATIVE) U Marijuana (THC) Screen Negative (NEGATIVE) 01/28/19 01/28/19 Range/Units 07:05 07:46 WBC (5.0-10.0) 10^3/uL RBC (4.50-6.00) 10^6/uL Hgb (14.0-18.0) g/dL Hct (40.0-54.0) % MCV (82.0-94.0) fL MCH (27.0-32.0) pg MCHC (33.0-38.0) g/dL RDW Coeff of Cheo (11.0-15.0) % Plt Count (150-400) 10^3/uL Neut % (Auto) (35-85) % Lymph % (Auto) (10-55) % Bland % (Auto) (0-16) % Eos % (Auto) (0-5) % Baso % (Auto) (0-3) % Neut # (Auto) (1.80-7.00) 10^3/uL Lymph # (Auto) (1.00-4.80) 10^3/uL Bland # (Auto) (0.00-0.80) 10^3/uL Eos # (Auto) (0.00-0.45) 10^3/uL Baso # (Auto) 10^3/uL Sodium 131 L (136-145) mEq/L Potassium 4.5 (3.5-5.0) mEq/L Chloride 90 L (98-106) mEq/L Carbon Dioxide 19 L (21-32) mmol/L BUN 89 H* (7-18) mg/dL Creatinine 9.3 H* (0.7-1.3) mg/dL Est Cr Clr Drug Dosing 6.89 mL/min Estimated GFR (MDRD) 6 L (>=60) mL/min Glucose 142 H (75-99) mg/dL POC Glucose 127 H (75-105) mg/dl Calcium 8.8 (8.4-10.1) mg/dL Urine Color (YELLOW) Urine Appearance (CLEAR) Urine pH (4.5-8.0) Ur Specific [place] (1.003-1.020) Urine Protein (NEGATIVE) mg/dL Urine Glucose (UA) (NEGATIVE) mg/dL Urine Ketones (NEGATIVE) mg/dL Urine Occult Blood (NEGATIVE) Urine Nitrite (NEGATIVE) Urine Bilirubin (NEGATIVE) Urine Urobilinogen (0.2-1.0) EU/dL Ur Leukocyte Esterase (NEGATIVE) Urine RBC (0-5) /HPF Urine WBC (0-5) /HPF Ur Epithelial Cells (NOT SEEN) /HPF Amorphous Sediment (NOT SEEN) /HPF Urine Opiates Screen (NEGATIVE) Ur Oxycodone Screen (NEGATIVE) Urine Methadone Screen (NEGATIVE) Ur Barbiturates Screen (NEGATIVE) U Tricyclic Antidepress (NEGATIVE) Ur Phencyclidine Scrn (NEGATIVE) Ur Amphetamine Screen (NEGATIVE) U Methamphetamines Scrn (NEGATIVE) Urine MDMA Screen (NEGATIVE) U Benzodiazepines Scrn (NEGATIVE) Urine Cocaine Screen (NEGATIVE) U Marijuana (THC) Screen (NEGATIVE) Med Orders - Current: Current Medications Discontinued Medications Acetaminophen (Tylenol) 650 mg PO Q4H PRN PRN Reason: Pain (Mild 1-3)/fever Albuterol (Ventolin Hfa) 0 gm INH Q4H PRN PRN Reason: DYSPNEA Albuterol/Ipratropium (Duoneb 3.0-0.5 Mg/3 Ml) 3 ml INH QID PRN PRN Reason: Shortness of Breath Amlodipine Besylate (Norvasc) 10 mg PO DAILY [facility] Last Admin: 01/28/19 09:29 Dose: Not Given Calcitriol (Rocaltrol) 0.25 mcg PO DAILY [facility] Last Admin: 01/28/19 09:39 Dose: Not Given Gemfibrozil (Lopid) 600 mg PO BIDAC [facility] Last Admin: 01/28/19 09:29 Dose: Not Given Levofloxacin/Dextrose 250 mg/ (Premix) 50 mls @ 50 mls/hr IV Q24H [facility] Last Admin: 01/27/19 18:59 Dose: 50 mls/hr Insulin Aspart (Novolog) 10 unit SUBCUT DAILY@0800 [facility] Last Admin: 01/28/19 09:39 Dose: Not Given Insulin Aspart (Novolog) 20 unit SUBCUT DAILY@1730 [facility] Last Admin: 01/27/19 19:05 Dose: Not Given Insulin Glargine (Lantus) 50 unit SUBCUT BEDTIME [facility] Last Admin: 01/27/19 20:51 Dose: Not Given Insulin Glargine (Lantus) 25 unit SUBCUT ONETIME ONE Stop: 01/27/19 20:54 Last Admin: 01/27/19 21:14 Dose: 25 units Insulin Human Lispro (Humalog) 14 unit SUBCUT DAILY@1200 [facility] Insulin Human Lispro (Humalog) 10 unit SUBCUT DAILY@0800 [facility] Last Admin: 01/28/19 09:28 Dose: Not Given Insulin Human Lispro (Humalog) 20 unit SUBCUT DAILY@1730 [facility] Levofloxacin (Levaquin) 500 mg PO Q24H [facility] Stop: 01/29/19 18:22 Last Admin: 01/27/19 19:05 Dose: Not Given Levofloxacin (Levaquin) 500 mg PO ONETIME ONE Stop: 01/27/19 19:01 Lorazepam (Ativan) 0.25 mg PO BID PRN PRN Reason: Anxiety Metoprolol Succinate (Toprol Xl) 100 mg PO DAILY [facility] Last Admin: 01/28/19 09:28 Dose: Not Given Naloxone HCl (Narcan) Confirm Administered Dose 2 mg .ROUTE .STK-MED ONE Stop: 01/27/19 14:29 Last Admin: 01/27/19 16:03 Dose: Not Given Naloxone HCl (Narcan) 1 mg IVPUSH ONETIME ONE Stop: 01/27/19 15:26 Last Admin: 01/27/19 15:25 Dose: 1 mg Non-Formulary Medication (Fluticasone/Salmeterol [Advair Diskus 250-50]) 1 puff INH BID [facility] Ptom Calcitriol (0.5 Mcg Cap) 0.5 mcg PO DAILY [facility] Last Admin: 01/28/19 09:29 Dose: Not Given Ondansetron HCl (Zofran Odt) 4 mg PO Q4H PRN PRN Reason: Vomiting Oxycodone HCl (Oxycodone) 5 mg PO Q8H PRN PRN Reason: Pain (moderate 4-6) Sertraline HCl (Zoloft) 100 mg PO BEDTIME [facility] Last Admin: 01/27/19 19:42 Dose: Not Given Simvastatin (Zocor) 20 mg PO BEDTIME [facility] Last Admin: 01/27/19 19:42 Dose: Not Given Sodium Chloride (Saline Flush) 10 ml FLUSH ASDIRECTED PRN PRN Reason: Keep Vein Open - Exam General: Reports: Oriented (person only), Other (sleepy) HEENT: Reports: Other (mucous membranes dry) Neck: Reports: Supple Lungs: Reports: Clear to Auscultation, Normal Respiratory Effort Cardiovascular: Reports: Regular Rate, Regular Rhythm GI/Abdominal Exam: Normal Bowel Sounds, Soft, Non-Tender Extremities: Normal Inspection, No Pedal Edema Skin: Reports: Warm, Dry
== END 2019-01-28 11:05 ==
LOC: CC.ED 13:21 → UNDOADMOB 16:38 → CC.MS 16:38
PROVIDERS: ADMIT Physician Assistant Medical; ATTEND Family Medicine
DX: R53.83 Other fatigue (principal); I12.0 Hypertensive chronic kidney disease with stage 5 chronic kidney disease or end stage renal disease; E11.22 Type 2 diabetes mellitus with diabetic chronic kidney disease; N18.6 End stage renal disease; Z99.2 Dependence on renal dialysis; E78.00 Pure hypercholesterolemia, unspecified; J44.9 Chronic obstructive pulmonary disease, unspecified; F32.9 Major depressive disorder, single episode, unspecified; F41.9 Anxiety disorder, unspecified; Z87.891 Personal history of nicotine dependence; Z79.4 Long term (current) use of insulin; Z79.899 Other long term (current) drug therapy
CPT/HCPCS: 36415; 36600; 70450; 71045; 80048; 80053; 80305-QW; 81001; 82550; 82803; 82962; 84484; 85025; 85610; 85730; 93005; 96365; 96374; 96375; 99285-25; A9270-GY; G0378; J1815-GY; J1956; J2310

== ENCOUNTER 2019-02-14 22:18 | Emergency (ER) | payer MEDICARE, OTHER ==
[2019-02-14 22:21] VITALS: BP 153/82
--- NOTE | 2019-02-14 23:16 | EDM.PDOCBH ---
ED HPI GENERAL MEDICAL PROBLEM - General Chief Complaint: Behavioral/Psych Stated Complaint: ANXIOUS, SOB Time Seen by Provider: 02/14/19 22:57 Source of Information: Reports: Patient History Limitations: Reports: No Limitations - History of Present Illness INITIAL COMMENTS - FREE TEXT/NARRATIVE: Barron is a 63 year old male who presents to the ED with complaints that he "is withdrawing." He reports that they stopped all his medications 2 weeks ago as he was taking too many pain pills apparently. Was weaned from Percocet to Tramadol. Also stopped his Xanax. He reports he has been having episodes where he can't breathe and feels very anxious. reports he has not been coughing, nor has he been sick. She reports "this is all anxiety." He reports he hasn't been taking his medications. reports she was unaware of this. He is currently doing hemodialysis Mon, Wed, and Fri. Recently was discharged from [facility] about 10 days ago. Onset: Today, Sudden Associated Symptoms: Reports: Confusion, Malaise, Shortness of Breath. Denies: Chest Pain, Cough, cough w sputum, Fever/Chills, Headaches, Loss of Appetite, Nausea/Vomiting, Syncope, Weakness - Related Data Allergies Allergy/AdvReac Type Severity Reaction Status Date / Time amoxicillin Allergy Itching Verified 02/14/19 22:21 erythromycin base Allergy Nausea Verified 02/14/19 22:21 penicillin Allergy Swelling Verified 02/14/19 22:21 Home Meds: Home Meds Insulin Detemir [Levemir] 50 units SQ BEDTIME 07/02/15 [History] Sertraline [Zoloft] 100 tab PO BEDTIME 07/02/15 [History] Simvastatin [Zocor] 20 mg PO BEDTIME 01/25/16 [History] Insulin Lispro [HumaLOG] 10 unit SQ 0800 02/13/16 [History] Insulin Lispro [HumaLOG] 14 unit SQ 1200 02/13/16 [History] Insulin Lispro [HumaLOG] 20 unit SQ 1730 02/13/16 [History] Albuterol [Ventolin HFA] 2 puff INH Q4H PRN 02/15/16 [History] Fluticasone/Salmeterol [Advair Diskus 250-50] 1 puff INH BID 05/28/16 [History] Gemfibrozil [Lopid] 600 mg PO BID 05/28/16 [History] Metoprolol Succinate 100 mg PO DAILY 05/14/18 [History] Ondansetron [Zofran ODT] 4 mg PO Q4H PRN #12 tab.dis 05/14/18 [Rx] Calcitriol 0.5 mcg PO DAILY 06/02/18 [History] Ipratropium/Albuterol Sulfate [Iprat-Albut 0.5-3(2.5) mg/3 ml] 1 inh INH QID PRN 06/02/18 [History] amLODIPine Besylate [Amlodipine Besylate] 10 mg PO DAILY 06/02/18 [History] Mirtazapine 15 mg PO BEDTIME 01/21/19 [History] Calcium Acetate 667 mg PO TIDMEALS 01/28/19 [History] Mirtazapine 15 mg PO BEDTIME 01/28/19 [History] traMADol HCl [Tramadol HCl] 50 mg PO BID PRN 02/14/19 [History] Past Medical History HEENT History: Reports: Allergic Rhinitis, Other (See Below) Other HEENT History: left eardrum trauma Cardiovascular History: Reports: High Cholesterol, Hypertension, Other (See Below) Other Cardiovascular History: pt states will have to see a sports intern for possilbe stent placement. Respiratory History: Reports: Asthma, COPD Gastrointestinal History: Reports: Pancreatitis, PUD Genitourinary History: Reports: BPH Musculoskeletal History: Reports: Arthritis, Back Pain, Chronic, Osteoarthritis Psychiatric History: Reports: Anxiety, Depression Endocrine/Metabolic History: Reports: Diabetes, Type II Immunologic History: Reports: Other (See Below) Other Immunologic History: Hx of shingles - Infectious Disease History Infectious Disease History: Reports: Shingles - Past Surgical History GI Surgical History: Reports: Cholecystectomy, Colonoscopy Neurological Surgical History: Reports: Laminectomy, Lumbar Spine, Spinal Fusion , Other (See Below) Musculoskeletal Surgical History: Reports: Knee Replacement, Shoulder Surgery Social & Family History - Family History Family Medical History: Noncontributory - Tobacco Use Smoking Status *Q: Former Smoker Used Tobacco, but Quit: Yes Month/Year Tobacco Last Used: 1993 - Caffeine Use Caffeine Use: Reports: None - Recreational Drug Use Recreational Drug Use: No ED ROS GENERAL - Review of Systems Review Of Systems: ROS reveals no pertinent complaints other than HPI. ED EXAM, BEHAVIORAL HEALTH - Physical Exam Exam: See Below Exam Limited By: No Limitations General Appearance: Alert, WD/WN, No Apparent Distress, Anxious Eye Exam: Bilateral Eye: EOMI, PERRL Throat/Mouth: Normal Inspection, Normal Lips, Normal Teeth, Normal Gums, Normal Oropharynx, Normal Voice, No Airway Compromise Head: Atraumatic, Normocephalic Neck: Normal Inspection, Supple, Non-Tender, Full Range of Motion Respiratory/Chest: No Respiratory Distress, Lungs Clear, Normal Breath Sounds, No Accessory Muscle Use, Chest Non-Tender Cardiovascular: Normal Peripheral Pulses, Regular Rate, Rhythm, No Edema, No Gallop, No JVD, No Murmur, No Rub GI/Abdominal: Normal Bowel Sounds, Soft, Non-Tender, No Organomegaly, No Distention, No Abnormal Bruit, No Mass Neurological: Alert, CN II-XII Intact, Normal Gait, No Motor/Sensory Deficits Psychiatric: Alert, Restless COURSE, BEHAVIORAL HEALTH COMP - Course Vital Signs: Last Vital Signs Temp 97.4 F 02/14/19 22:19 Pulse 101 H 02/14/19 22:19 Resp 20 02/14/19 22:19 BP 153/82 H 02/14/19 22:19 Pulse Ox 100 02/14/19 22:19 Orders, Labs, Meds: Laboratory Tests 02/14/19 02/14/19 Range/Units 22:40 22:55 WBC 8.0 (5.0-10.0) 10^3/uL RBC 3.62 L (4.50-6.00) 10^6/uL Hgb 10.2 L (14.0-18.0) g/dL Hct 32.2 L (40.0-54.0) % MCV 89.0 (82.0-94.0) fL MCH 28.2 (27.0-32.0) pg MCHC 31.7 L (33.0-38.0) g/dL RDW Coeff of Cheo 14.1 (11.0-15.0) % Plt Count 213 (150-400) 10^3/uL Neut % (Auto) 71.9 (35-85) % Lymph % (Auto) 14.4 (10-55) % [place] % (Auto) 8.9 (0-16) % Eos % (Auto) 3.8 (0-5) % Baso % (Auto) 1.0 (0-3) % Neut # (Auto) 5.72 (1.80-7.00) 10^3/uL Lymph # (Auto) 1.15 (1.00-4.80) 10^3/uL [place] # (Auto) 0.71 (0.00-0.80) 10^3/uL Eos # (Auto) 0.30 (0.00-0.45) 10^3/uL Baso # (Auto) 0.08 10^3/uL Sodium 137 (136-145) mEq/L Potassium 5.1 H D (3.5-5.0) mEq/L Chloride 100 (98-106) mEq/L Carbon Dioxide 24 (21-32) mmol/L BUN 56 H D (7-18) mg/dL Creatinine 5.9 H* (0.7-1.3) mg/dL Est Cr Clr Drug Dosing 10.41 mL/min Estimated GFR (MDRD) 10 L (>=60) mL/min Glucose 199 H (75-99) mg/dL Calcium 8.3 L (8.4-10.1) mg/dL C-Reactive Protein 1.1 H (0.2-0.8) mg/dL Departure - Departure Time of Disposition: 23:30 Disposition: Home, Self-Care 01 Condition: Good Clinical Impression: Anxiety, Panic disorder - Discharge Information *PRESCRIPTION DRUG MONITORING PROGRAM REVIEWED*: Not Applicable *COPY OF PRESCRIPTION DRUG MONITORING REPORT IN PATIENT STEPHANIE: Not Applicable Instructions: Panic Attack, [id number] Referrals: PCP,None [Primary Care Provider] - Forms: ED Department Discharge Additional Instructions: Take 0.25 mg alprazolam (Xanax) every 12 hours as needed for anxiety/panic symptoms. Discussed dosing with . She reports she has his meds hidden from him. Recommend using Xanax at bedtime as needed. She reports she will dose this for him. Make sure you are taking sertraline (Zoloft) and all other medications as directed, EXCEPT Percocet. Follow up with PCP next week for recheck
== END 2019-02-14 23:42 | disposition home or self-care (01) ==
LOC: CC.ED 22:18
DX: F41.0 Panic disorder [episodic paroxysmal anxiety] (principal); E11.9 Type 2 diabetes mellitus without complications; I10 Essential (primary) hypertension; E78.00 Pure hypercholesterolemia, unspecified; J44.9 Chronic obstructive pulmonary disease, unspecified; F32.9 Major depressive disorder, single episode, unspecified; Z87.891 Personal history of nicotine dependence; Z79.4 Long term (current) use of insulin; Z79.899 Other long term (current) drug therapy; Z88.1 Allergy status to other antibiotic agents; Z88.0 Allergy status to penicillin
CPT/HCPCS: 36415; 80048; 85025; 86140; 99283; 99284

== ENCOUNTER 2019-05-12 09:09 | Observation (INO) | payer MEDICARE, OTHER ==
[2019-05-12 09:50] LABS: CHLORIDE,CL 95 mEq/L (98-106); SODIUM,NA 132 mEq/L (136-145)
--- NOTE | 2019-05-12 10:09 | EDM.PDOC ---
ED HPI GENERAL MEDICAL PROBLEM - General Chief Complaint: General Stated Complaint: confusion Time Seen by Provider: 05/12/19 09:30 Source of Information: Reports: Family History Limitations: Reports: Altered Mental Status - History of Present Illness INITIAL COMMENTS - FREE TEXT/NARRATIVE: Patient presents to the ER with with increased confusion. states "he is functioning fine but his speech/words don't make any sense". He actually drove them to the ER. Gave his own dialysis last night. Does administer his own meds. She states he was given a new prescription last week, arrived on Saturday and started the ImDur at that time. Unsure if that is causing the issues. She is not sure if he is taking his insulin or not. Eating and drinking fine. She states he has been alert, just doesn't make any sense. He has a history of noncompliance with his meds, has been in the ER overly sedated from taking too many meds. Has been taken off all of his narcotics. Takes Xanax, Tramadol, unsure if he takes them properly and patient unable to clearly tell us. He also has a history of encephalitis but relates that he was very lethargic and sick at that time. Onset: Gradual Duration: Day(s): Location: Reports: Head Improves with: Reports: None Associated Symptoms: Reports: Confusion. Denies: Fever/Chills, Loss of Appetite , Nausea/Vomiting, Shortness of Breath, Weakness - Related Data Allergies Allergy/AdvReac Type Severity Reaction Status Date / Time amoxicillin Allergy Itching Verified 05/12/19 09:20 erythromycin base Allergy Nausea Verified 05/12/19 09:20 penicillin Allergy Swelling Verified 05/12/19 09:20 Home Meds: Home Meds Insulin Detemir [Levemir] 10 units SQ BEDTIME 07/02/15 [History] Sertraline [Zoloft] 100 tab PO BEDTIME 07/02/15 [History] Simvastatin [Zocor] 20 mg PO BEDTIME 01/25/16 [History] Insulin Lispro [HumaLOG] 10 unit SQ TIDMEALS 02/13/16 [History] Albuterol [Ventolin HFA] 2 puff INH Q4H PRN 02/15/16 [History] Fluticasone/Salmeterol [Advair Diskus 250-50] 1 puff INH BID 05/28/16 [History] Gemfibrozil [Lopid] 600 mg PO BID 05/28/16 [History] Ondansetron [Zofran ODT] 4 mg PO Q4H PRN #12 tab.dis 05/14/18 [Rx] Ipratropium/Albuterol Sulfate [Iprat-Albut 0.5-3(2.5) mg/3 ml] 1 inh INH QID PRN 06/02/18 [History] amLODIPine Besylate [Amlodipine Besylate] 10 mg PO DAILY 06/02/18 [History] Mirtazapine 15 mg PO BEDTIME 01/28/19 [History] traMADol HCl [Tramadol HCl] 50 mg PO BID PRN 02/14/19 [History] ALPRAZolam [Xanax] 0.25 mg PO Q8H 05/12/19 [History] Amitriptyline HCl 50 mg PO BEDTIME 05/12/19 [History] Isosorbide Mononitrate [Imdur] 30 mg PO DAILY 05/12/19 [History] Past Medical History HEENT History: Reports: Allergic Rhinitis, Other (See Below) Other HEENT History: left eardrum trauma Cardiovascular History: Reports: High Cholesterol, Hypertension, Other (See Below) Other Cardiovascular History: pt states will have to see a shake loader for possilbe stent placement. Respiratory History: Reports: Asthma, COPD Gastrointestinal History: Reports: Pancreatitis, PUD Genitourinary History: Reports: BPH Musculoskeletal History: Reports: Arthritis, Back Pain, Chronic, Osteoarthritis Psychiatric History: Reports: Anxiety, Depression Endocrine/Metabolic History: Reports: Diabetes, Type II Immunologic History: Reports: Other (See Below) Other Immunologic History: Hx of shingles - Infectious Disease History Infectious Disease History: Reports: Shingles - Past Surgical History GI Surgical History: Reports: Cholecystectomy, Colonoscopy Neurological Surgical History: Reports: Laminectomy, Lumbar Spine, Spinal Fusion , Other (See Below) Musculoskeletal Surgical History: Reports: Knee Replacement, Shoulder Surgery Social & Family History - Family History Family Medical History: Noncontributory - Tobacco Use Smoking Status *Q: Former Smoker Used Tobacco, but Quit: Yes Month/Year Tobacco Last Used: 1977 - Caffeine Use Caffeine Use: Reports: None - Recreational Drug Use Recreational Drug Use: No ED ROS GENERAL - Review of Systems Review Of Systems: See Below Constitutional: Denies: Fever, Chills, Malaise, Weakness HEENT: Reports: No Symptoms Respiratory: Denies: Shortness of Breath, Cough Cardiovascular: Denies: Chest Pain, Edema, Lightheadedness Endocrine: Denies: Fatigue GI/Abdominal: Denies: Abdominal Pain, Nausea, Vomiting : Reports: No Symptoms Musculoskeletal: Reports: No Symptoms Skin: Reports: No Symptoms Neurological: Reports: Confusion, Trouble Speaking, Change in Speech. Denies: Difficulty Walking Psychiatric: Reports: Confusion - Physical Exam Exam: See Below Exam Limited By: Altered Mental Status General Appearance: Alert, WD/WN, No Apparent Distress Eye Exam: Bilateral Eye: EOMI, PERRL Ears: Normal External Exam, Normal TMs Nose: Normal Inspection, Normal Mucosa, No Blood Throat/Mouth: Normal Inspection, Normal Oropharynx Head Exam: Normocephalic Neck: Normal Inspection, Supple, Non-Tender Respiratory/Chest: No Respiratory Distress, Lungs Clear, Normal Breath Sounds Cardiovascular: Regular Rate, Rhythm GI/Abdominal: Normal Bowel Sounds, Soft, Non-Tender Neuro Exam (Abbreviated): Alert, Other (patient follows command well, able to complete neuro exam. Has word salad, unable to express himself as words are inappropriate for context. ) Extremities: Normal Inspection, No Pedal Edema Course - Vital Signs Last Recorded V/S: Last Vital Signs Temp 99 F 05/12/19 09:09 Pulse 75 05/12/19 09:09 Resp 18 05/12/19 09:09 BP 137/86 05/12/19 09:09 Pulse Ox 97 05/12/19 09:09 - Orders/Labs/Meds Orders: Active Orders 24 hr Category Date Time Status Blood Glucose Check, Bedside [RC] ONETIME Care 05/12/19 09:10 Active Chest 2V [CR] Stat Exams 05/12/19 09:23 Ordered Head wo Cont [CT] Stat Exams 05/12/19 09:37 Taken Labs: Laboratory Tests 05/12/19 05/12/19 05/12/19 Range/Units 09:22 09:23 09:30 WBC 9.7 (5.0-10.0) 10^3/uL RBC 4.03 L (4.50-6.00) 10^6/uL Hgb 11.1 L (14.0-18.0) g/dL Hct 31.9 L (40.0-54.0) % MCV 79.2 L (82.0-94.0) fL MCH 27.5 (27.0-32.0) pg MCHC 34.8 (33.0-38.0) g/dL RDW Coeff of Cheo 14.8 (11.0-15.0) % Plt Count 234 (150-400) 10^3/uL Neut % (Auto) 66.3 (35-85) % Lymph % (Auto) 23.3 (10-55) % [place] % (Auto) 6.9 (0-16) % Eos % (Auto) 2.6 (0-5) % Baso % (Auto) 0.9 (0-3) % Neut # (Auto) 6.41 (1.80-7.00) 10^3/uL Lymph # (Auto) 2.26 (1.00-4.80) 10^3/uL [place] # (Auto) 0.67 (0.00-0.80) 10^3/uL Eos # (Auto) 0.25 (0.00-0.45) 10^3/uL Baso # (Auto) 0.09 10^3/uL Sodium (136-145) mEq/L Potassium (3.5-5.0) mEq/L Chloride (98-106) mEq/L Carbon Dioxide (21-32) mmol/L BUN (7-18) mg/dL Creatinine (0.7-1.3) mg/dL Est Cr Clr Drug Dosing mL/min Estimated GFR (MDRD) (>=60) mL/min Glucose (75-99) mg/dL Calcium (8.4-10.1) mg/dL Total Bilirubin (0.0-1.0) mg/dL AST (15-37) U/L ALT (12-78) U/L Alkaline Phosphatase (46-116) U/L Lactate Dehydrogenase (100-190) U/L Creatine Kinase (35-232) U/L Troponin I (0.00-0.06) ng/mL C-Reactive Protein (0.2-0.8) mg/dL Total Protein (6.4-8.2) g/dL Albumin (3.4-5.0) g/dL Urine Color Yellow (YELLOW) Urine Appearance Clear (CLEAR) Urine pH 7.0 (4.5-8.0) Ur Specific [place] 1.020 (1.003-1.020) Urine Protein >=300 H (NEGATIVE) mg/dL Urine Glucose (UA) 500 H (NEGATIVE) mg/dL Urine Ketones Negative (NEGATIVE) mg/dL Urine Occult Blood Small H (NEGATIVE) Urine Nitrite Negative (NEGATIVE) Urine Bilirubin Negative (NEGATIVE) Urine Urobilinogen 0.2 (0.2-1.0) EU/dL Ur Leukocyte Esterase Negative (NEGATIVE) Urine RBC 0-5 (0-5) /HPF Urine WBC 10-20 H (0-5) /HPF Ur Squamous Epith Cells Occasional H (NOT SEEN) /HPF Urine Bacteria Occasional H (NOT SEEN) /HPF Urine Opiates Screen Negative (NEGATIVE) Ur Oxycodone Screen Negative (NEGATIVE) Urine Methadone Screen Negative (NEGATIVE) Ur Barbiturates Screen Negative (NEGATIVE) U Tricyclic Antidepress Positive H (NEGATIVE) Ur Phencyclidine Scrn Negative (NEGATIVE) Ur Amphetamine Screen Negative (NEGATIVE) U Methamphetamines Scrn Negative (NEGATIVE) Urine MDMA Screen Negative (NEGATIVE) U Benzodiazepines Scrn Positive H (NEGATIVE) Urine Cocaine Screen Negative (NEGATIVE) U Marijuana (THC) Screen Negative (NEGATIVE) 05/12/19 Range/Units 09:30 WBC (5.0-10.0) 10^3/uL RBC (4.50-6.00) 10^6/uL Hgb (14.0-18.0) g/dL Hct (40.0-54.0) % MCV (82.0-94.0) fL MCH (27.0-32.0) pg MCHC (33.0-38.0) g/dL RDW Coeff of [place] (11.0-15.0) % Plt Count (150-400) 10^3/uL Neut % (Auto) (35-85) % Lymph % (Auto) (10-55) % [place] % (Auto) (0-16) % Eos % (Auto) (0-5) % Baso % (Auto) (0-3) % Neut # (Auto) (1.80-7.00) 10^3/uL Lymph # (Auto) (1.00-4.80) 10^3/uL [place] # (Auto) (0.00-0.80) 10^3/uL Eos # (Auto) (0.00-0.45) 10^3/uL Baso # (Auto) 10^3/uL Sodium 132 L (136-145) mEq/L Potassium 3.7 D (3.5-5.0) mEq/L Chloride 95 L (98-106) mEq/L Carbon Dioxide 25 (21-32) mmol/L BUN 42 H (7-18) mg/dL Creatinine 6.0 H* (0.7-1.3) mg/dL Est Cr Clr Drug Dosing 10.41 mL/min Estimated GFR (MDRD) 9 L (>=60) mL/min Glucose 362 H* D (75-99) mg/dL Calcium 8.8 (8.4-10.1) mg/dL Total Bilirubin 0.2 (0.0-1.0) mg/dL AST 13 L (15-37) U/L ALT 10 L (12-78) U/L Alkaline Phosphatase 126 H (46-116) U/L Lactate Dehydrogenase 186 (100-190) U/L Creatine Kinase 123 (35-232) U/L Troponin I < 0.017 (0.00-0.06) ng/mL C-Reactive Protein 0.5 (0.2-0.8) mg/dL Total Protein 7.2 (6.4-8.2) g/dL Albumin 3.0 L (3.4-5.0) g/dL Urine Color (YELLOW) Urine Appearance (CLEAR) Urine pH (4.5-8.0) Ur Specific [place] (1.003-1.020) Urine Protein (NEGATIVE) mg/dL Urine Glucose (UA) (NEGATIVE) mg/dL Urine Ketones (NEGATIVE) mg/dL Urine Occult Blood (NEGATIVE) Urine Nitrite (NEGATIVE) Urine Bilirubin (NEGATIVE) Urine Urobilinogen (0.2-1.0) EU/dL Ur Leukocyte Esterase (NEGATIVE) Urine RBC (0-5) /HPF Urine WBC (0-5) /HPF Ur Squamous Epith Cells (NOT SEEN) /HPF Urine Bacteria (NOT SEEN) /HPF Urine Opiates Screen (NEGATIVE) Ur Oxycodone Screen (NEGATIVE) Urine Methadone Screen (NEGATIVE) Ur Barbiturates Screen (NEGATIVE) U Tricyclic Antidepress (NEGATIVE) Ur Phencyclidine Scrn (NEGATIVE) Ur Amphetamine Screen (NEGATIVE) U Methamphetamines Scrn (NEGATIVE) Urine MDMA Screen (NEGATIVE) U Benzodiazepines Scrn (NEGATIVE) Urine Cocaine Screen (NEGATIVE) U Marijuana (THC) Screen (NEGATIVE) - Re-Assessments/Exams Free Text/Narrative Re-Assessment/Exam: 05/12/19 10:38 Labs noted. Glucose is high. Creatinine high at 6.0 but chronic in nature, last evaluation 5.9. Sodium mildly low at 132, potassium normal. 05/12/19 10:[address] Skinner. Still awaiting CT scan of head. Will admit to observation, monitor neuro status, med compliance and tolerance. Dr. Skinner agrees with admission and plan. Departure - Departure Time of Disposition: 10:41 Disposition: Refer to Observation Condition: Fair Clinical Impression: Altered mental status Qualifiers: Altered mental status type: somnolence Qualified Code(s): R40.0 - Somnolence - Discharge Information *PRESCRIPTION DRUG MONITORING PROGRAM REVIEWED*: No *COPY OF PRESCRIPTION DRUG MONITORING REPORT IN PATIENT STEPHANIE: No Forms: ED Department Discharge - Problem List & Annotations (1) Altered mental status SNOMED Code(s): 952028938 Code(s): R41.82 - ALTERED MENTAL STATUS, UNSPECIFIED Status: Acute Priority: High Current Visit: Yes Qualifiers: Altered mental status type: unspecified Qualified Code(s): R41.82 - Altered mental status, unspecified - Problem List Review Problem List Initiated/Reviewed/Updated: Yes - My Orders Last 24 Hours: My Active Orders 05/12/19 09:10 Blood Glucose Check, Bedside [RC] ONETIME 05/12/19 09:23 Chest 2V [CR] Stat 05/12/19 09:37 Head wo Cont [CT] Stat - Assessment/Plan Admission H&P: Please use this note as an admission H&P Last 24 Hours: My Active Orders 05/12/19 09:10 Blood Glucose Check, Bedside [RC] ONETIME 05/12/19 09:23 Chest 2V [CR] Stat 05/12/19 09:37 Head wo Cont [CT] Stat Assessment:: Altered Mental status Plan: Will admit to observation to Dr. Skinner. Continue neuro exams, glucoscans and monitor med compliance. Peritoneal dialysis nightly.
[2019-05-12] MEDS ORDERED: Enoxaparin 30 MG/0.3 ML Syringe SUBCUT SCH (12:15)
[2019-05-12] MEDS ORDERED: Ondansetron 4 MG Tab.DIS PO PRN (12:15)
[2019-05-12] MEDS ORDERED: ALPRAZOLAM 0.25 MG PO SCH (12:15)
[2019-05-12] MEDS ORDERED: Sodium Chloride 0.9% 10 ML Syringe FLUSH PRN (12:15)
[2019-05-12] MEDS ORDERED: Albuterol/Ipratropium 3.0-0.5 MG/3 ML Neb Soln INH PRN (12:15)
[2019-05-12] MEDS ORDERED: traMADol 50 MG Tab PO PRN (12:15)
[2019-05-12] MEDS ORDERED: ALBUTEROL INH PRN (12:15)
[2019-05-12] MEDS: Insulin Lispro 100 Units/ML 3 ML Vial SUBCUT SCH ×2 (12:33→19:42)
[2019-05-12] MEDS ORDERED: ALPRAZOLAM 0.25 MG PO PRN (12:45)
[2019-05-12] MEDS ORDERED: Clopidogrel 75 MG Tab PO SCH (13:45)
[2019-05-12 19:40] VITALS: BP 181/89
[2019-05-12] MEDS ORDERED: FLUTICASONE INH SCH (20:00)
[2019-05-12] MEDS ORDERED: SALMETEROL INH SCH (20:00)
[2019-05-12] MEDS ORDERED: **PTOM** Mirtazapine 15 MG Tab PO SCH (20:00)
[2019-05-12] MEDS ORDERED: SERTRALINE 100 MG PO SCH (20:00)
[2019-05-12] MEDS ORDERED: AMITRIPTYLINE HCL 50 MG PO SCH (20:00)
[2019-05-12] MEDS ORDERED: Insulin Glargine,Human Rec. Analog 100 Units/ML 3 ML Pen SUBCUT SCH (20:00)
[2019-05-12] MEDS ORDERED: GEMFIBROZIL 600 MG PO SCH (20:00)
[2019-05-12] MEDS ORDERED: SIMVASTATIN 40 MG PO SCH (20:00)
[2019-05-12] MEDS ORDERED: LORazepam 2 MG/ML Syringe ONE (20:40)
[2019-05-12] MEDS ORDERED: LORazepam 2 MG/ML Syringe IVPUSH STA (20:48)
--- NOTE | 2019-05-12 22:40 | PCM.DCSUM1 ---
Discharge Summary - Discharge Data Discharge Date: 05/12/19 Discharge Disposition: DC/Tfer to Acute Hospital 02 Condition: Good - Discharge Diagnosis/Problem(s) (1) Altered mental status SNOMED Code(s): 628673402 ICD Code: R41.82 - ALTERED MENTAL STATUS, UNSPECIFIED Status: Acute Priority: High Current Visit: Yes Qualifiers: Altered mental status type: unspecified Qualified Code(s): R41.82 - Altered mental status, unspecified - Discharge Plan *PRESCRIPTION DRUG MONITORING PROGRAM REVIEWED*: No *COPY OF PRESCRIPTION DRUG MONITORING REPORT IN PATIENT STEPHANIE: No Home Medications: Home Meds Insulin Detemir [Levemir] 10 units SQ BEDTIME 07/02/15 [History] Sertraline [Zoloft] 100 tab PO BEDTIME 07/02/15 [History] Simvastatin [Zocor] 20 mg PO BEDTIME 01/25/16 [History] Insulin Lispro [HumaLOG] 10 unit SQ TIDMEALS 02/13/16 [History] Albuterol [Ventolin HFA] 2 puff INH Q4H PRN 02/15/16 [History] Fluticasone/Salmeterol [Advair Diskus 250-50] 1 puff INH BID 05/28/16 [History] Gemfibrozil [Lopid] 600 mg PO BID 05/28/16 [History] Ondansetron [Zofran ODT] 4 mg PO Q4H PRN #12 tab.dis 05/14/18 [Rx] Ipratropium/Albuterol Sulfate [Iprat-Albut 0.5-3(2.5) mg/3 ml] 1 inh INH QID PRN 06/02/18 [History] amLODIPine Besylate [Amlodipine Besylate] 10 mg PO DAILY 06/02/18 [History] Mirtazapine 15 mg PO BEDTIME 01/28/19 [History] traMADol HCl [Tramadol HCl] 50 mg PO BID PRN 02/14/19 [History] ALPRAZolam [Xanax] 0.25 mg PO Q8H PRN 05/12/19 [History] Amitriptyline HCl 50 mg PO BEDTIME 05/12/19 [History] Isosorbide Mononitrate [Imdur] 30 mg PO DAILY 05/12/19 [History] Forms: ED Department Discharge Referrals: Eugene Skinner MD [Primary Care Provider] - - Patient Data Vitals - Most Recent: Last Vital Signs Temp 100.3 F 05/12/19 19:40 Pulse 89 05/12/19 19:40 Resp 18 05/12/19 19:40 BP 181/89 H 05/12/19 19:40 Pulse Ox 97 05/12/19 19:40 Weight - Most Recent: 137 lb 6.4 oz I&O - Last 24 hours: Intake & Output 05/12/19 05/12/19 05/12/19 06:59 14:59 22:59 Intake Total 300 Balance 300 Lab Results - Last 24 hrs: Laboratory Results - last 24 hr 05/12/19 05/12/19 05/12/19 Range/Units 09:22 09:23 09:30 WBC 9.7 (5.0-10.0) 10^3/uL RBC 4.03 L (4.50-6.00) 10^6/uL Hgb 11.1 L (14.0-18.0) g/dL Hct 31.9 L (40.0-54.0) % MCV 79.2 L (82.0-94.0) fL MCH 27.5 (27.0-32.0) pg MCHC 34.8 (33.0-38.0) g/dL RDW Coeff of Cheo 14.8 (11.0-15.0) % Plt Count 234 (150-400) 10^3/uL Neut % (Auto) 66.3 (35-85) % Lymph % (Auto) 23.3 (10-55) % Iron % (Auto) 6.9 (0-16) % Eos % (Auto) 2.6 (0-5) % Baso % (Auto) 0.9 (0-3) % Neut # (Auto) 6.41 (1.80-7.00) 10^3/uL Lymph # (Auto) 2.26 (1.00-4.80) 10^3/uL Iron # (Auto) 0.67 (0.00-0.80) 10^3/uL Eos # (Auto) 0.25 (0.00-0.45) 10^3/uL Baso # (Auto) 0.09 10^3/uL Sodium (136-145) mEq/L Potassium (3.5-5.0) mEq/L Chloride (98-106) mEq/L Carbon Dioxide (21-32) mmol/L BUN (7-18) mg/dL Creatinine (0.7-1.3) mg/dL Est Cr Clr Drug Dosing mL/min Estimated GFR (MDRD) (>=60) mL/min Glucose (75-99) mg/dL POC Glucose (75-105) mg/dl Calcium (8.4-10.1) mg/dL Total Bilirubin (0.0-1.0) mg/dL AST (15-37) U/L ALT (12-78) U/L Alkaline Phosphatase (46-116) U/L Lactate Dehydrogenase (100-190) U/L Creatine Kinase (35-232) U/L Troponin I (0.00-0.06) ng/mL C-Reactive Protein (0.2-0.8) mg/dL Total Protein (6.4-8.2) g/dL Albumin (3.4-5.0) g/dL Urine Color Yellow (YELLOW) Urine Appearance Clear (CLEAR) Urine pH 7.0 (4.5-8.0) Ur Specific [place] 1.020 (1.003-1.020) Urine Protein >=300 H (NEGATIVE) mg/dL Urine Glucose (UA) 500 H (NEGATIVE) mg/dL Urine Ketones Negative (NEGATIVE) mg/dL Urine Occult Blood Small H (NEGATIVE) Urine Nitrite Negative (NEGATIVE) Urine Bilirubin Negative (NEGATIVE) Urine Urobilinogen 0.2 (0.2-1.0) EU/dL Ur Leukocyte Esterase Negative (NEGATIVE) Urine RBC 0-5 (0-5) /HPF Urine WBC 10-20 H (0-5) /HPF Ur Squamous Epith Cells Occasional H (NOT SEEN) /HPF Urine Bacteria Occasional H (NOT SEEN) /HPF Urine Opiates Screen Negative (NEGATIVE) Ur Oxycodone Screen Negative (NEGATIVE) Urine Methadone Screen Negative (NEGATIVE) Ur Barbiturates Screen Negative (NEGATIVE) U Tricyclic Antidepress Positive H (NEGATIVE) Ur Phencyclidine Scrn Negative (NEGATIVE) Ur Amphetamine Screen Negative (NEGATIVE) U Methamphetamines Scrn Negative (NEGATIVE) Urine MDMA Screen Negative (NEGATIVE) U Benzodiazepines Scrn Positive H (NEGATIVE) Urine Cocaine Screen Negative (NEGATIVE) U Marijuana (THC) Screen Negative (NEGATIVE) 05/12/19 05/12/19 05/12/19 Range/Units 09:30 15:41 20:28 WBC (5.0-10.0) 10^3/uL RBC (4.50-6.00) 10^6/uL Hgb (14.0-18.0) g/dL Hct (40.0-54.0) % MCV (82.0-94.0) fL MCH (27.0-32.0) pg MCHC (33.0-38.0) g/dL RDW Coeff of Cheo (11.0-15.0) % Plt Count (150-400) 10^3/uL Neut % (Auto) (35-85) % Lymph % (Auto) (10-55) % Iron % (Auto) (0-16) % Eos % (Auto) (0-5) % Baso % (Auto) (0-3) % Neut # (Auto) (1.80-7.00) 10^3/uL Lymph # (Auto) (1.00-4.80) 10^3/uL Iron # (Auto) (0.00-0.80) 10^3/uL Eos # (Auto) (0.00-0.45) 10^3/uL Baso # (Auto) 10^3/uL Sodium 132 L (136-145) mEq/L Potassium 3.7 D (3.5-5.0) mEq/L Chloride 95 L (98-106) mEq/L Carbon Dioxide 25 (21-32) mmol/L BUN 42 H (7-18) mg/dL Creatinine 6.0 H* (0.7-1.3) mg/dL Est Cr Clr Drug Dosing 10.41 mL/min Estimated GFR (MDRD) 9 L (>=60) mL/min Glucose 362 H* D (75-99) mg/dL POC Glucose 110 H 236 H (75-105) mg/dl Calcium 8.8 (8.4-10.1) mg/dL Total Bilirubin 0.2 (0.0-1.0) mg/dL AST 13 L (15-37) U/L ALT 10 L (12-78) U/L Alkaline Phosphatase 126 H (46-116) U/L Lactate Dehydrogenase 186 (100-190) U/L Creatine Kinase 123 (35-232) U/L Troponin I < 0.017 (0.00-0.06) ng/mL C-Reactive Protein 0.5 (0.2-0.8) mg/dL Total Protein 7.2 (6.4-8.2) g/dL Albumin 3.0 L (3.4-5.0) g/dL Urine Color (YELLOW) Urine Appearance (CLEAR) Urine pH (4.5-8.0) Ur Specific [place] (1.003-1.020) Urine Protein (NEGATIVE) mg/dL Urine Glucose (UA) (NEGATIVE) mg/dL Urine Ketones (NEGATIVE) mg/dL Urine Occult Blood (NEGATIVE) Urine Nitrite (NEGATIVE) Urine Bilirubin (NEGATIVE) Urine Urobilinogen (0.2-1.0) EU/dL Ur Leukocyte Esterase (NEGATIVE) Urine RBC (0-5) /HPF Urine WBC (0-5) /HPF Ur Squamous Epith Cells (NOT SEEN) /HPF Urine Bacteria (NOT SEEN) /HPF Urine Opiates Screen (NEGATIVE) Ur Oxycodone Screen (NEGATIVE) Urine Methadone Screen (NEGATIVE) Ur Barbiturates Screen (NEGATIVE) U Tricyclic Antidepress (NEGATIVE) Ur Phencyclidine Scrn (NEGATIVE) Ur Amphetamine Screen (NEGATIVE) U Methamphetamines Scrn (NEGATIVE) Urine MDMA Screen (NEGATIVE) U Benzodiazepines Scrn (NEGATIVE) Urine Cocaine Screen (NEGATIVE) U Marijuana (THC) Screen (NEGATIVE) Med Orders - Current: Current Medications Albuterol (Ventolin Hfa) 0 gm INH Q4H PRN PRN Reason: Dyspnea Albuterol/Ipratropium (Duoneb 3.0-0.5 Mg/3 Ml) 3 ml INH QID PRN PRN Reason: Shortness of Breath Alprazolam (Xanax) 0.25 mg PO Q8H PRN PRN Reason: Anxiety Amlodipine Besylate (Norvasc) 10 mg PO DAILY [facility] Clopidogrel Bisulfate (Plavix) 75 mg PO DAILY [facility] Last Admin: 05/12/19 14:16 Dose: 75 mg Enoxaparin Sodium (Lovenox) 30 mg SUBCUT DAILY [facility] Last Admin: 05/12/19 12:33 Dose: 30 mg Gemfibrozil (Lopid) 600 mg PO BID [facility] Last Admin: 05/12/19 19:43 Dose: 600 mg Insulin Glargine (Lantus Solostar) 10 units SUBCUT BEDTIME [facility] Last Admin: 05/12/19 19:55 Dose: 10 units Insulin Human Lispro (Humalog) 10 unit SUBCUT TIDMEALS [facility] Last Admin: 05/12/19 19:42 Dose: 10 units Isosorbide Mononitrate (Imdur) 30 mg PO DAILY [facility] Mirtazapine (Remeron) 15 mg PO BEDTIME [facility] Last Admin: 05/12/19 19:43 Dose: 15 mg Ptom Amitriptyline Hcl 50 Mg Tab 50 mg PO BEDTIME [facility] Last Admin: 05/12/19 19:43 Dose: 50 mg Ptom Fluticasone /Salmeterol [Advair Diskus 250-50] 1 puff INH BID [facility] Last Admin: 05/12/19 19:42 Dose: 1 puff Ondansetron HCl (Zofran Odt) 4 mg PO Q4H PRN PRN Reason: nausea, able to take PO Simvastatin (Zocor) 20 mg PO BEDTIME [facility] Last Admin: 05/12/19 19:43 Dose: 20 mg Sodium Chloride (Saline Flush) 10 ml FLUSH ASDIRECTED PRN PRN Reason: Keep Vein Open Discontinued Medications Alprazolam (Xanax) 0.25 mg PO Q8H [facility] Last Admin: 05/12/19 12:44 Dose: Not Given Lorazepam (Ativan) Confirm Administered Dose 2 mg .ROUTE .STK-MED ONE Stop: 05/12/19 20:41 Last Admin: 05/12/19 20:40 Dose: 2 mg Lorazepam (Ativan) 1 mg IVPUSH ASDIRECTED STA Stop: 05/12/19 20:49 Last Admin: 05/12/19 21:05 Dose: Not Given Sertraline HCl (Zoloft) 100 mg PO BEDTIME [facility] Tramadol HCl (Ultram) 50 mg PO BID PRN PRN Reason: Pain
[2019-05-13] MEDS ORDERED: amLODIPine 10 MG Tab PO SCH (08:00)
[2019-05-13] MEDS ORDERED: **PTOM** Isosorbide Mononitrate 30 MG Tab.ER PO SCH (08:00)
== END 2019-05-12 21:40 ==
LOC: CC.ED 09:09 → CC.MS 10:47 → UNDOADMOB 10:59 → CC.MS 10:59
PROVIDERS: ADMIT Physician Assistant Medical; ATTEND Family Medicine
DX: R41.82 Altered mental status, unspecified (principal); E11.9 Type 2 diabetes mellitus without complications; I10 Essential (primary) hypertension; E78.00 Pure hypercholesterolemia, unspecified; J44.9 Chronic obstructive pulmonary disease, unspecified; F41.9 Anxiety disorder, unspecified; F32.9 Major depressive disorder, single episode, unspecified; M19.90 Unspecified osteoarthritis, unspecified site; G89.29 Other chronic pain; Z87.891 Personal history of nicotine dependence; Z79.4 Long term (current) use of insulin; Z79.899 Other long term (current) drug therapy; Z88.0 Allergy status to penicillin; Z88.1 Allergy status to other antibiotic agents; Z98.890 Other specified postprocedural states
CPT/HCPCS: 36415; 70450; 71046; 80053; 80305-QW; 81001; 82550; 82962; 83615; 84484; 85025; 86140; 93005; 93010; 93880; 99236; 99285-25; A9270-GY; J1650; J1815; J1815-GY; J2060

== ENCOUNTER 2019-06-12 06:36 | Observation (INO) | payer MEDICARE, OTHER ==
[~2019-06-12 06:36] MED LIST: Glucagon,Human Recombinant 1 MG Vial ONE
[2019-06-12] MEDS ORDERED: Sodium Chloride 0.9% 1,000 ML ONE (06:44)
[2019-06-12] MEDS ORDERED: Glucagon,Human Recombinant 1 MG Vial IVPUSH ONE ×2 (07:10→08:33)
[2019-06-12] MEDS ORDERED: Sodium Chloride 0.9% 1,000 ML IV SCH (07:30)
--- NOTE | 2019-06-12 07:41 | EDM.PDOC ---
ED HPI GENERAL MEDICAL PROBLEM - General Chief Complaint: Neurological Problem Stated Complaint: unresponsive Time Seen by Provider: 06/12/19 07:06 Source of Information: Reports: EMS, Family () - History of Present Illness INITIAL COMMENTS - FREE TEXT/NARRATIVE: Pt was found by his "sleeping" unresponsive on the floor of the living room this AM approximately 0500. she states that he went to bed about 2200 and when she got up to the bathroom at 5 he wasn't in bed and she found him lying on the floor. She feels that he may have fallen in the bathroom as there were indications of him struggling there. She said that she was able to get him up and into the recliner but he was very lethargic and not coherent. He did have dialysis yesterday and had told her that he was so tired yesterday. Had been discharged from [facility] on Saturday after becoming hypotensive after his dialysis on Saturday. He also had gotten a unit of blood that day. He was supposed to have his peritoneal shunt removed on Saturday but was unable as he was still in the hospital. states the end of May he started having grand mal seizures and was started on meds for this and was in [place] for almost 2 weeks. Did have neurology appt Saturday and no med changes were done at that time. He has been very forgetful and more confusion since having a seizure. When EMS arrived his blood sugar was 94 and was 53 when arriving in the ER and was given glucagon. No change in mentation after glucagon given. He will wake up when stimulated and replies that he is in [place]. He does not recognize me and he typically does. states that since his seizures that he has been very forgetful and more unbalanced. No bruising or new abrasions were noted this AM on exam. He is known to be very sensitive to having low blood sugars that are even on the low end of normal. Onset: Today Associated Symptoms: Reports: Confusion - Related Data Allergies Allergy/AdvReac Type Severity Reaction Status Date / Time amoxicillin Allergy Itching Verified 06/12/19 07:38 erythromycin base Allergy Nausea Verified 06/12/19 07:38 penicillin Allergy Swelling Verified 06/12/19 07:38 Home Meds: Home Meds Sertraline [Zoloft] 100 tab PO DAILY 07/02/15 [History] Insulin Lispro [HumaLOG] 4 unit SQ TIDMEALS 02/13/16 [History] Albuterol [Ventolin HFA] 2 puff INH Q4H PRN 02/15/16 [History] Fluticasone/Salmeterol [Advair Diskus 250-50] 1 puff INH BID 05/28/16 [History] Gemfibrozil [Lopid] 600 mg PO BID 05/28/16 [History] amLODIPine Besylate [Amlodipine Besylate] 10 mg PO BEDTIME 06/02/18 [History] Mirtazapine 15 mg PO BEDTIME 01/28/19 [History] ALPRAZolam [Xanax] 0.25 mg PO Q8H PRN 05/12/19 [History] Amitriptyline HCl 75 mg PO BEDTIME 05/12/19 [History] Isosorbide Mononitrate [Imdur] 30 mg PO BEDTIME 05/12/19 [History] Bisacodyl [Dulcolax] 10 mg RECTAL DAILY PRN 06/12/19 [History] Calcitriol 0.5 mg PO ASDIRECTED 06/12/19 [History] Calcium Acetate 667 mg PO TID 06/12/19 [History] Divalproex Sodium [Divalproex Sodium ER] 2,000 mg PO BID 06/12/19 [History] Gentamicin [Gentamicin 0.1%] 1 applic TOP DAILY 06/12/19 [History] Insulin Glarg,Human.Rec.Analog [Lantus] 10 unit SQ BEDTIME 06/12/19 [History] Iron Polysaccharide Complex [Ferric X-150] 150 mg PO ASDIRECTED 06/12/19 [ History] Loratadine 10 mg PO DAILY PRN 06/12/19 [History] Metoprolol Succinate 100 mg PO BEDTIME 06/12/19 [History] Oxymetazoline [Afrin Original 0.05% Nasal [place]] 1 - 2 spray NASBOTH BID PRN [History] Polyethylene Glycol 8000 [Polyethylene Glycol] 1 packet PO DAILY PRN 06/12/19 [ History] Rosuvastatin Calcium 20 mg PO DAILY 06/12/19 [History] [place] 460 mg PO DAILY 06/12/19 [History] Sennosides/Docusate Sodium [Senna-Docusate Sodium Tablet] 2 tab PO BID PRN 06/12 [History] Sodium Bicarbonate 650 mg PO TID 06/12/19 [History] levETIRAcetam [Levetiracetam] 1,000 mg PO BEDTIME 06/12/19 [History] Past Medical History HEENT History: Reports: Allergic Rhinitis, Other (See Below) Other HEENT History: left eardrum trauma Cardiovascular History: Reports: High Cholesterol, Hypertension, Other (See Below) Other Cardiovascular History: pt states 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 Respiratory History: Reports: Asthma, COPD Gastrointestinal History: Reports: Pancreatitis, PUD Genitourinary History: Reports: BPH Musculoskeletal History: Reports: Arthritis, Back Pain, Chronic, Osteoarthritis Psychiatric History: Reports: Anxiety, Depression Endocrine/Metabolic History: Reports: Diabetes, Type II Immunologic History: Reports: Other (See Below) Other Immunologic History: Hx of shingles - Infectious Disease History Infectious Disease History: Reports: Shingles - Past Surgical History Cardiovascular Surgical History: Reports: Vascular Surgery (perm cath placement for dialysis.) GI Surgical History: Reports: Cholecystectomy, Colonoscopy Neurological Surgical History: Reports: Laminectomy, Lumbar Spine, Spinal Fusion , Other (See Below) Musculoskeletal Surgical History: Reports: Knee Replacement, Shoulder Surgery Social & Family History - Family History Family Medical History: Noncontributory - Caffeine Use Caffeine Use: Reports: None - Living Situation & Occupation Living situation: Reports: , with Spouse Occupation: Retired ED ROS GENERAL - Review of Systems Review Of Systems: Unable To Obtain - Physical Exam Exam: See Below Exam Limited By: Altered Mental Status General Appearance: Lethargic, Obtunded Eye Exam: Bilateral Eye: PERRL (4 mm) Ears: Normal Canal, Normal TMs Nose: Normal Inspection Throat/Mouth: Normal Inspection, Normal Oropharynx Head Exam: Atraumatic Neck: Normal Inspection, Supple, Non-Tender Respiratory/Chest: No Respiratory Distress, Lungs Clear, Normal Breath Sounds Cardiovascular: Normal Peripheral Pulses, Regular Rate, Rhythm, No Edema, Other (Has dialysis catheter in the right upper chest wall. Area is clean and dry.) GI/Abdominal: Normal Bowel Sounds, Soft, Non-Tender, No Organomegaly, Other ( does have peritoneal dialysis tubing in the left lower abdomen. Site is clean and dry.) Neuro Exam (Abbreviated): Confused (he will open eyes and tell me he is in hospital in [place]. He needs to be stimulated to respond. Was able to drink glass of OJ and then went back to sleep. Does not answer other questions but did ask what his blood sugar was.) Extremities: Normal Inspection, No Pedal Edema, Normal Capillary Refill Skin Exam: Warm, Dry Course - Vital Signs Last Recorded V/S: Last Vital Signs Temp 96.5 F 06/12/19 12:00 Pulse 63 06/12/19 12:00 Resp 16 06/12/19 12:00 BP 147/69 H 06/12/19 12:00 Pulse Ox 97 06/12/19 12:00 - Orders/Labs/Meds Orders: Active Orders 24 hr Category Date Time Status Head wo Cont [CT] Stat Exams 06/12/19 07:08 Taken DRUG SCREEN URINE BIORAD [URCHEM] Stat Lab 06/12/19 07:02 Received UA RFX CHELA AND CULT IF INDIC [URIN] Stat Lab 06/12/19 07:02 Received Dextrose 5%-0.45% NaCl [Dextrose 5%-1/2 NS] 1,000 ml Med 06/12/19 09:15 Active IV ASDIRECTED Medication Orders Albuterol (Ventolin Hfa) 0 gm INH Q4H PRN PRN Reason: Dyspnea Amlodipine Besylate (Norvasc) 10 mg PO BEDTIME PRAVEEN Enoxaparin Sodium (Lovenox) 15 mg SUBCUT Q24H [facility] Last Admin: 06/12/19 12:36 Dose: 15 mg Ferrous Sulfate (Ferrous Sulfate) 648 mg PO DAILY PRAVEEN Last Admin: 06/12/19 12:31 Dose: 648 mg Gemfibrozil (Lopid) 600 mg PO BID PRAVEEN Last Admin: 06/12/19 12:30 Dose: 600 mg Gentamicin Sulfate (Gentamicin 0.1%) 1 gm TOP DAILY PRAVENE Last Admin: 06/12/19 12:33 Dose: Dextrose/Sodium Chloride (Dextrose 5%-1/2 Ns) 1,000 mls @ 100 mls/hr IV ASDIRECTED [facility] Last Admin: 06/12/19 09:10 Dose: 100 mls/hr Isosorbide Mononitrate (Imdur) 30 mg PO BEDTIME PRAVEEN Metoprolol Succinate (Toprol Xl) 100 mg PO BEDTIME PRAVEEN Mometasone Furoate/Formoterol Fumar (Dulera 200-5 Mcg) 2 puff IH BID [facility] Ptom Divalproex (Sodium Er 2,000 Mg) 2,000 mg PO BID [facility] Last Admin: 06/12/19 12:31 Dose: 2,000 mg Ptom Levetiracetam 1,000 Mg 1,000 mg PO BEDTIME [facility] Ptom Rosuvastatin Calcium 20 Mg 20 mg PO DAILY [facility] Last Admin: 06/12/19 12:32 Dose: 20 mg Polyethylene Glycol (Miralax) 17 gm PO DAILY PRN PRN Reason: Constipation Sertraline HCl (Zoloft) 100 mg PO DAILY [facility] Last Admin: 06/12/19 12:32 Dose: Sodium Bicarbonate (Sodium Bicarbonate) 650 mg PO TID [facility] Last Admin: 06/12/19 14:28 Dose: 650 mg Labs: Laboratory Tests 06/12/19 06/12/19 Range/Units 07:02 07:02 WBC 9.0 (5.0-10.0) 10^3/uL RBC 4.08 L (4.50-6.00) 10^6/uL Hgb 11.4 L (14.0-18.0) g/dL Hct 36.1 L (40.0-54.0) % MCV 88.5 (82.0-94.0) fL MCH 27.9 (27.0-32.0) pg MCHC 31.6 L (33.0-38.0) g/dL RDW Coeff of Cheo 15.8 H (11.0-15.0) % Plt Count 77 L (150-400) 10^3/uL Neut % (Auto) 65.5 (35-85) % Lymph % (Auto) 21.6 (10-55) % Wake % (Auto) 10.2 (0-16) % Eos % (Auto) 2.4 (0-5) % Baso % (Auto) 0.3 (0-3) % Neut # (Auto) 5.90 (1.80-7.00) 10^3/uL Lymph # (Auto) 1.95 (1.00-4.80) 10^3/uL Wake # (Auto) 0.92 H (0.00-0.80) 10^3/uL Eos # (Auto) 0.22 (0.00-0.45) 10^3/uL Baso # (Auto) 0.03 10^3/uL Sodium 142 (136-145) mEq/L Potassium 3.6 (3.5-5.0) mEq/L Chloride 100 (98-106) mEq/L Carbon Dioxide 32 (21-32) mmol/L BUN 21 H (7-18) mg/dL Creatinine 3.6 H* (0.7-1.3) mg/dL Est Cr Clr Drug Dosing 17.56 mL/min Estimated GFR (MDRD) 17 L (>=60) mL/min Glucose 44 L D (75-99) mg/dL Calcium 8.1 L (8.4-10.1) mg/dL Total Bilirubin 0.2 (0.0-1.0) mg/dL AST 13 L (15-37) U/L ALT 6 L (12-78) U/L Alkaline Phosphatase 71 (46-116) U/L C-Reactive Protein 10.8 H (0.2-0.8) mg/dL Total Protein 6.2 L (6.4-8.2) g/dL Albumin 1.8 L (3.4-5.0) g/dL Meds: Medications Generic Name Dose Route Start Last Admin Trade Name Freq PRN Reason Stop Dose Admin Albuterol 0 gm 06/12/19 10:09 Ventolin Hfa INH Q4H PRN Dyspnea Amlodipine Besylate 10 mg 06/12/19 20:00 Norvasc PO BEDTIME PRAVEEN Enoxaparin Sodium 15 mg 06/12/19 12:00 06/12/19 12:36 Lovenox SUBCUT 15 mg Q24H PR[facility] Administration Ferrous Sulfate 648 mg 06/12/19 10:09 06/12/19 12:31 Ferrous Sulfate PO 648 mg DAILY PRAVEEN Administration Gemfibrozil 600 mg 06/12/19 10:06/12/19 12:30 Lopid PO 600 mg BID PRAVEEN Administration Gentamicin Sulfate 1 gm 06/12/19 10:09 06/12/19 12:33 Gentamicin 0.1% TOP Not Given DAILY PRAVEEN Dextrose/Sodium Chloride 1,000 mls @ 100 mls/hr 06/12/19 09:15 06/12/19 09:10 Dextrose 5%-1/2 Ns IV 100 mls/hr ASDIRECTED PRAVEEN Administration Isosorbide Mononitrate 30 mg 06/12/19 20:00 Imdur PO BEDTIME PRAVEEN Metoprolol Succinate 100 mg 06/12/19 20:00 Toprol Xl PO BEDTIME PRAVEEN Mometasone Furoate/Formoterol Fumar 2 puff 06/12/19 20:00 Dulera 200-5 Mcg IH BID PRAVEEN Ptom Divalproex 2,000 mg 06/12/19 10:09 06/12/19 12:31 Sodium Er 2,000 Mg PO 2,000 mg BID PRAVEEN Administration Ptom 1,000 mg 06/12/19 20:00 Levetiracetam 1,000 PO Mg BEDTIME PRAVEEN Ptom 20 mg 06/12/19 10:09 06/12/19 12:32 Rosuvastatin Calcium PO 20 mg 20 Mg DAILY PRAVEEN Administration Polyethylene Glycol 17 gm 06/12/19 10:09 Miralax PO DAILY PRN Constipation Sertraline HCl 100 mg 06/12/19 10:09 06/12/19 12:32 Zoloft PO Not Given DAILY PRAVEEN Sodium Bicarbonate 650 mg 06/12/19 14:00 06/12/19 14:28 Sodium Bicarbonate PO 650 mg TID PRAVEEN Administration Discontinued Medications Generic Name Dose Route Start Last Admin Trade Name Freq PRN Reason Stop Dose Admin Glucagon Confirm 06/12/19 06:35 06/12/19 07:21 Glucagen Administered 06/12/19 06:36 Not Given Dose 1 mg .ROUTE .STK-MED ONE Glucagon 1 mg 06/12/19 07:10 06/12/19 06:56 Glucagen IVPUSH 06/12/19 07:11 1 mg ONETIME ONE Administration Glucagon 1 mg 06/12/19 08:33 06/12/19 08:21 Glucagen IVPUSH 06/12/19 08:34 1 mg ONETIME ONE Administration Sodium Chloride Confirm 06/12/19 06:44 06/12/19 07:21 Normal Saline Administered 06/12/19 06:45 Not Given Dose 1,000 mls @ as directed .ROUTE .STK-MED ONE Sodium Chloride 1,000 mls @ 100 mls/hr 06/12/19 07:30 06/12/19 07:00 Normal Saline IV 100 mls/hr ASDIRECTED PRAVEEN Administration - Re-Assessments/Exams Free Text/Narrative Re-Assessment/Exam: 06/12/[address] head results with radiology and was felt to be normal and unchanged from his previous. 06/12/19 09:20 discussed pt and labs, ct with Dr. Skinner and will admit observation to hospital and continue to monitor his blood sugars and neuro checks with goal to discharge tomorrow morning so his can take him to his dialysis appt in [place] at [address]45. Dr. Skinner and are both in agreement of this plan. Departure - Departure Time of Disposition: 09:50 Disposition: Refer to Observation Condition: Serious Clinical Impression: Hypoglycemia Altered mental status Qualifiers: Altered mental status type: unspecified Qualified Code(s): R41.82 - Altered mental status, unspecified - Discharge Information *PRESCRIPTION DRUG MONITORING PROGRAM REVIEWED*: Not Applicable *COPY OF PRESCRIPTION DRUG MONITORING REPORT IN PATIENT STEPHANIE: Not Applicable - Problem List & Annotations (1) Altered mental status SNOMED Code(s): 335130369 Code(s): R41.82 - ALTERED MENTAL STATUS, UNSPECIFIED Status: Acute Priority: High Current Visit: Yes Qualifiers: Altered mental status type: unspecified Qualified Code(s): R41.82 - Altered mental status, unspecified (2) Hypoglycemia SNOMED Code(s): 521247416 Code(s): E16.2 - HYPOGLYCEMIA, UNSPECIFIED Status: Acute Priority: High Current Visit: Yes - Problem List Review Problem List Initiated/Reviewed/Updated: Yes - My Orders Last 24 Hours: My Active Orders 06/12/19 07:02 DRUG SCREEN URINE BIORAD [URCHEM] Stat UA RFX CHELA AND CULT IF INDIC [URIN] Stat 06/12/19 07:08 Head wo Cont [CT] Stat 06/12/19 09:15 Dextrose 5%-0.45% NaCl [Dextrose 5%-1/2 NS] 1,000 ml IV ASDIRECTED - Assessment/Plan Admission H&P: Please use this note as an admission H&P Last 24 Hours: My Active Orders 06/12/19 07:02 DRUG SCREEN URINE BIORAD [URCHEM] Stat UA RFX CHELA AND CULT IF INDIC [URIN] Stat 06/12/19 07:08 Head wo Cont [CT] Stat 06/12/19 09:15 Dextrose 5%-0.45% NaCl [Dextrose 5%-1/2 NS] 1,000 ml IV ASDIRECTED Plan: Will hold his insulin at this time until his blood sugars are stabilized and with the intent to run higher than in the low 100's. I think that some of his somnolence is due to his sensitivity to lower blood sugars. will stop some of his hs meds that are sedating as with the dialysis and renal failure he may be over medicated. Goal is to discharge in AM so can take him to the dialysis appt in [place] tomorrow. Will do frequent neuro checks and blood sugar checks until stabilized. will encourage him to eat dinner with hope of stabilizing his blood sugar. case was discussed with Dr. Skinner and he agrees with admit and plan of care.
[2019-06-12] MEDS ORDERED: Dextrose 5%-0.45% NaCl 1,000 ML IV SCH (09:15)
[2019-06-12] MEDS ORDERED: Albuterol 8 GM Inhaler INH PRN (10:09)
[2019-06-12] MEDS ORDERED: Polyethylene Glycol 3350 Powder 17 GM Packet PO PRN (10:09)
[2019-06-12] MEDS ORDERED: Enoxaparin 30 MG/0.3 ML Syringe SUBCUT SCH (12:00)
[2019-06-12] MEDS: GEMFIBROZIL 600 MG PO SCH ×2 (12:30→20:21)
[2019-06-12] MEDS: Ferrous Sulfate 324 MG Tab.EC PO SCH (12:31)
[2019-06-12] MEDS: DIVALPROEX SODIUM PO SCH ×2 (12:31→20:23)
[2019-06-12] MEDS: SERTRALINE 100 MG PO SCH (12:32)
[2019-06-12] MEDS: ROSUVASTATIN CALCIUM 20 MG PO SCH (12:32)
[2019-06-12] MEDS: Sodium Bicarbonate 650 MG Tab PO SCH ×2 (14:28→20:21)
[2019-06-12] MEDS ORDERED: amLODIPine 10 MG Tab PO SCH (20:00)
[2019-06-12] MEDS ORDERED: **PTOM** Isosorbide Mononitrate 30 MG Tab.ER PO SCH (20:00)
[2019-06-12] MEDS ORDERED: LEVETIRACETAM 1000 MG PO SCH (20:00)
[2019-06-12] MEDS ORDERED: METOPROLOL SUCCINATE 100 MG PO SCH (20:00)
[2019-06-12] MEDS: Formoterol/Mometasone 200-5 MCG 8.8 GM Inhaler IH SCH (20:30)
[2019-06-13] MEDS: GEMFIBROZIL 600 MG PO SCH (07:46)
[2019-06-13] MEDS: Ferrous Sulfate 324 MG Tab.EC PO SCH (07:46)
[2019-06-13] MEDS: SERTRALINE 100 MG PO SCH (07:46)
[2019-06-13] MEDS: DIVALPROEX SODIUM PO SCH (07:47)
[2019-06-13] MEDS: Sodium Bicarbonate 650 MG Tab PO SCH (07:47)
[2019-06-13] MEDS: Formoterol/Mometasone 200-5 MCG 8.8 GM Inhaler IH SCH (07:48)
[2019-06-13] MEDS: ROSUVASTATIN CALCIUM 20 MG PO SCH (07:49)
[2019-06-13 09:01] VITALS: BP 168/84; PULSE 66
--- NOTE | 2019-06-13 09:08 | PCM.PN ---
- General Info Date of Service: 06/13/19 Admission Dx/Problem (Free Text): hypoglycemia - Review of Systems General: Reports: No Symptoms HEENT: Reports: No Symptoms Pulmonary: Reports: No Symptoms. Denies: Shortness of Breath Cardiovascular: Reports: No Symptoms Gastrointestinal: Reports: No Symptoms, Abdominal Pain. Denies: Nausea, Vomiting Musculoskeletal: Reports: No Symptoms Skin: Reports: No Symptoms Neurological: Reports: No Symptoms Psychiatric: Denies: No Symptoms - Patient Data Vitals - Most Recent: Last Vital Signs Temp 36.6 C 06/13/19 08:00 Pulse 66 06/13/19 08:00 Resp 18 06/13/19 08:00 BP 168/84 H 06/13/19 08:00 Pulse Ox 99 06/13/19 08:00 Weight - Most Recent: 64.274 kg I&O - Last 24 Hours: Intake & Output 06/12/19 06/13/19 06/13/19 22:59 06:59 14:59 Intake Total 500 350 Balance 500 350 Lab Results Last 24 Hours: Laboratory Results - last 24 hr 06/12/19 06/12/19 06/12/19 Range/Units 09:49 09:55 11:08 WBC (5.0-10.0) 10^3/uL RBC (4.50-6.00) 10^6/uL Hgb (14.0-18.0) g/dL Hct (40.0-54.0) % MCV (82.0-94.0) fL MCH (27.0-32.0) pg MCHC (33.0-38.0) g/dL RDW Coeff of [place] (11.0-15.0) % Plt Count (150-400) 10^3/uL Neut % (Auto) (35-85) % Lymph % (Auto) (10-55) % Petroleum % (Auto) (0-16) % Eos % (Auto) (0-5) % Baso % (Auto) (0-3) % Neut # (Auto) (1.80-7.00) 10^3/uL Lymph # (Auto) (1.00-4.80) 10^3/uL [place] # (Auto) (0.00-0.80) 10^3/uL Eos # (Auto) (0.00-0.45) 10^3/uL Baso # (Auto) 10^3/uL Sodium (136-145) mEq/L Potassium (3.5-5.0) mEq/L Chloride (98-106) mEq/L Carbon Dioxide (21-32) mmol/L BUN (7-18) mg/dL Creatinine (0.7-1.3) mg/dL Est Cr Clr Drug Dosing mL/min Estimated GFR (MDRD) (>=60) mL/min Glucose 89 D (75-99) mg/dL POC Glucose > 500 H* 211 H (75-105) mg/dl Calcium (8.4-10.1) mg/dL Total Bilirubin (0.0-1.0) mg/dL AST (15-37) U/L ALT (12-78) U/L Alkaline Phosphatase (46-116) U/L Total Protein (6.4-8.2) g/dL Albumin (3.4-5.0) g/dL 06/12/19 06/12/19 06/12/19 Range/Units 13:00 13:03 14:11 WBC (5.0-10.0) 10^3/uL RBC (4.50-6.00) 10^6/uL Hgb (14.0-18.0) g/dL Hct (40.0-54.0) % MCV (82.0-94.0) fL MCH (27.0-32.0) pg MCHC (33.0-38.0) g/dL RDW Coeff of [place] (11.0-15.0) % Plt Count (150-400) 10^3/uL Neut % (Auto) (35-85) % Lymph % (Auto) (10-55) % [place] % (Auto) (0-16) % Eos % (Auto) (0-5) % Baso % (Auto) (0-3) % Neut # (Auto) (1.80-7.00) 10^3/uL Lymph # (Auto) (1.00-4.80) 10^3/uL [place] # (Auto) (0.00-0.80) 10^3/uL Eos # (Auto) (0.00-0.45) 10^3/uL Baso # (Auto) 10^3/uL Sodium (136-145) mEq/L Potassium (3.5-5.0) mEq/L Chloride (98-106) mEq/L Carbon Dioxide (21-32) mmol/L BUN (7-18) mg/dL Creatinine (0.7-1.3) mg/dL Est Cr Clr Drug Dosing mL/min Estimated GFR (MDRD) (>=60) mL/min Glucose 86 (75-99) mg/dL POC Glucose 99 165 H (75-105) mg/dl Calcium (8.4-10.1) mg/dL Total Bilirubin (0.0-1.0) mg/dL AST (15-37) U/L ALT (12-78) U/L Alkaline Phosphatase (46-116) U/L Total Protein (6.4-8.2) g/dL Albumin (3.4-5.0) g/dL 06/12/19 06/12/19 06/12/19 Range/Units 15:22 16:24 20:14 WBC (5.0-10.0) 10^3/uL RBC (4.50-6.00) 10^6/uL Hgb (14.0-18.0) g/dL Hct (40.0-54.0) % MCV (82.0-94.0) fL MCH (27.0-32.0) pg MCHC (33.0-38.0) g/dL RDW Coeff of Che[place] (11.0-15.0) % Plt Count (150-400) 10^3/uL Neut % (Auto) (35-85) % Lymph % (Auto) (10-55) % [place] % (Auto) (0-16) % Eos % (Auto) (0-5) % Baso % (Auto) (0-3) % Neut # (Auto) (1.80-7.00) 10^3/uL Lymph # (Auto) (1.00-4.80) 10^3/uL [place] # (Auto) (0.00-0.80) 10^3/uL Eos # (Auto) (0.00-0.45) 10^3/uL Baso # (Auto) 10^3/uL Sodium (136-145) mEq/L Potassium (3.5-5.0) mEq/L Chloride (98-106) mEq/L Carbon Dioxide (21-32) mmol/L BUN (7-18) mg/dL Creatinine (0.7-1.3) mg/dL Est Cr Clr Drug Dosing mL/min Estimated GFR (MDRD) (>=60) mL/min Glucose (75-99) mg/dL POC Glucose 120 H 130 H 130 H (75-105) mg/dl Calcium (8.4-10.1) mg/dL Total Bilirubin (0.0-1.0) mg/dL AST (15-37) U/L ALT (12-78) U/L Alkaline Phosphatase (46-116) U/L Total Protein (6.4-8.2) g/dL Albumin (3.4-5.0) g/dL 06/13/19 06/13/19 06/13/19 Range/Units 01:23 05:11 05:11 WBC 7.2 (5.0-10.0) 10^3/uL RBC 4.37 L (4.50-6.00) 10^6/uL Hgb 12.3 L (14.0-18.0) g/dL Hct 38.2 L (40.0-54.0) % MCV 87.4 (82.0-94.0) fL MCH 28.1 (27.0-32.0) pg MCHC 32.2 L (33.0-38.0) g/dL RDW Coeff of Cheo 15.3 H (11.0-15.0) % Plt Count 53 L (150-400) 10^3/uL Neut % (Auto) 67.4 (35-85) % Lymph % (Auto) 15.1 (10-55) % [place] % (Auto) 11.1 (0-16) % Eos % (Auto) 6.0 H (0-5) % Baso % (Auto) 0.4 (0-3) % Neut # (Auto) 4.87 (1.80-7.00) 10^3/uL Lymph # (Auto) 1.09 (1.00-4.80) 10^3/uL [place] # (Auto) 0.80 (0.00-0.80) 10^3/uL Eos # (Auto) 0.43 (0.00-0.45) 10^3/uL Baso # (Auto) 0.03 10^3/uL Sodium 138 (136-145) mEq/L Potassium 3.6 (3.5-5.0) mEq/L Chloride 101 (98-106) mEq/L Carbon Dioxide 27 (21-32) mmol/L BUN 29 H (7-18) mg/dL Creatinine 4.7 H* (0.7-1.3) mg/dL Est Cr Clr Drug Dosing 13.45 mL/min Estimated GFR (MDRD) 13 L (>=60) mL/min Glucose 150 H D (75-99) mg/dL POC Glucose 221 H (75-105) mg/dl Calcium 7.9 L (8.4-10.1) mg/dL Total Bilirubin 0.2 (0.0-1.0) mg/dL AST 13 L (15-37) U/L ALT 6 L (12-78) U/L Alkaline Phosphatase 78 (46-116) U/L Total Protein 6.2 L (6.4-8.2) g/dL Albumin 1.8 L (3.4-5.0) g/dL 06/13/19 Range/Units 07:56 WBC (5.0-10.0) 10^3/uL RBC (4.50-6.00) 10^6/uL Hgb (14.0-18.0) g/dL Hct (40.0-54.0) % MCV (82.0-94.0) fL MCH (27.0-32.0) pg MCHC (33.0-38.0) g/dL RDW Coeff of Cheo (11.0-15.0) % Plt Count (150-400) 10^3/uL Neut % (Auto) (35-85) % Lymph % (Auto) (10-55) % [place] % (Auto) (0-16) % Eos % (Auto) (0-5) % Baso % (Auto) (0-3) % Neut # (Auto) (1.80-7.00) 10^3/uL Lymph # (Auto) (1.00-4.80) 10^3/uL [place] # (Auto) (0.00-0.80) 10^3/uL Eos # (Auto) (0.00-0.45) 10^3/uL Baso # (Auto) 10^3/uL Sodium (136-145) mEq/L Potassium (3.5-5.0) mEq/L Chloride (98-106) mEq/L Carbon Dioxide (21-32) mmol/L BUN (7-18) mg/dL Creatinine (0.7-1.3) mg/dL Est Cr Clr Drug Dosing mL/min Estimated GFR (MDRD) (>=60) mL/min Glucose (75-99) mg/dL POC Glucose 150 H (75-105) mg/dl Calcium (8.4-10.1) mg/dL Total Bilirubin (0.0-1.0) mg/dL AST (15-37) U/L ALT (12-78) U/L Alkaline Phosphatase (46-116) U/L Total Protein (6.4-8.2) g/dL Albumin (3.4-5.0) g/dL Med Orders - Current: Current Medications Albuterol (Ventolin Hfa) 0 gm INH Q4H PRN PRN Reason: Dyspnea Amlodipine Besylate (Norvasc) 10 mg PO BEDTIME [facility] Last Admin: 06/12/19 20:21 Dose: 10 mg Enoxaparin Sodium (Lovenox) 15 mg SUBCUT Q24H [facility] Last Admin: 06/12/19 12:36 Dose: 15 mg Ferrous Sulfate (Ferrous Sulfate) 648 mg PO DAILY [facility] Last Admin: 06/13/19 07:46 Dose: 648 mg Gemfibrozil (Lopid) 600 mg PO BID [facility] Last Admin: 06/13/19 07:46 Dose: 600 mg Gentamicin Sulfate (Gentamicin 0.1%) 1 gm TOP DAILY [facility] Last Admin: 06/13/19 07:50 Dose: Not Given Isosorbide Mononitrate (Imdur) 30 mg PO BEDTIME [facility] Last Admin: 06/12/19 20:25 Dose: 30 mg Metoprolol Succinate (Toprol Xl) 100 mg PO BEDTIME [facility] Last Admin: 06/12/19 20:22 Dose: 100 mg Mometasone Furoate/Formoterol Fumar (Dulera 200-5 Mcg) 2 puff IH BID [facility] Last Admin: 06/13/19 07:48 Dose: 2 inhalation Ptom Divalproex (Sodium Er 2,000 Mg) 2,000 mg PO BID [facility] Last Admin: 06/13/19 07:47 Dose: 2,000 mg Ptom Levetiracetam 1,000 Mg 1,000 mg PO BEDTIME [facility] Last Admin: 06/12/19 20:24 Dose: 1,000 mg Ptom Rosuvastatin Calcium 20 Mg 20 mg PO DAILY [facility] Last Admin: 06/13/19 07:49 Dose: 20 mg Polyethylene Glycol (Miralax) 17 gm PO DAILY PRN PRN Reason: Constipation Sertraline HCl (Zoloft) 100 mg PO DAILY [facility] Last Admin: 06/13/19 07:46 Dose: 100 mg Sodium Bicarbonate (Sodium Bicarbonate) 650 mg PO TID [facility] Last Admin: 06/13/19 07:47 Dose: 650 mg Discontinued Medications Glucagon (Glucagen) Confirm Administered Dose 1 mg .ROUTE .STK-MED ONE Stop: 06/12/19 06:36 Last Admin: 06/12/19 07:21 Dose: Not Given Glucagon (Glucagen) 1 mg IVPUSH ONETIME ONE Stop: 06/12/19 07:11 Last Admin: 06/12/19 06:56 Dose: 1 mg Glucagon (Glucagen) 1 mg IVPUSH ONETIME ONE Stop: 06/12/19 08:34 Last Admin: 06/12/19 08:21 Dose: 1 mg Sodium Chloride (Normal Saline) Confirm Administered Dose 1,000 mls @ as directed .ROUTE .STK-MED ONE Stop: 06/12/19 06:45 Last Admin: 06/12/19 07:21 Dose: Not Given Sodium Chloride (Normal Saline) 1,000 mls @ 100 mls/hr IV ASDIRECTED [facility] Last Admin: 06/12/19 07:00 Dose: 100 mls/hr Dextrose/Sodium Chloride (Dextrose 5%-1/2 Ns) 1,000 mls @ 100 mls/hr IV ASDIRECTED [facility] Last Admin: 06/12/19 09:10 Dose: 100 mls/hr - Exam General: Alert, Oriented, Cooperative, No Acute Distress Neck: Supple Lungs: Clear to Auscultation, Normal Respiratory Effort Cardiovascular: Regular Rate, Regular Rhythm GI/Abdominal Exam: Soft, Non-Tender Back Exam: Normal Inspection, Full Range of Motion Extremities: Normal Inspection, Normal Range of Motion, Non-Tender, No Pedal Edema, Normal Capillary Refill Peripheral Pulses: 2+: Radial (L) Skin: Warm, Dry, Intact Neurological: No New Focal Deficit Psy/Mental Status: Alert, Normal Affect, Normal Mood - Problem List & Annotations (1) Hypoglycemia SNOMED Code(s): 510112969 Code(s): E16.2 - HYPOGLYCEMIA, UNSPECIFIED Status: Acute Priority: Low Current Visit: Yes Annotation/Comment:: resolved - Problem List Review Problem List Initiated/Reviewed/Updated: Yes - Plan Plan:: will dc home, his Blood glucose has been stable, will have his scheduled dialysis today.
--- NOTE | 2019-06-13 09:14 | PCM.DCSUM1 ---
Discharge Summary - Hospital Course Free Text/Narrative:: hypoglycemia HPI Initial Comments: pt has continued to progress, BS have remained stable, no cp or sob, no nv, no weakness Diagnosis: Stroke: No - Discharge Data Discharge Date: 06/13/19 Discharge Disposition: Home, Self-Care 01 Condition: Good - Discharge Diagnosis/Problem(s) (1) Hypoglycemia SNOMED Code(s): 130832304 ICD Code: E16.2 - HYPOGLYCEMIA, UNSPECIFIED Status: Acute Priority: Low Current Visit: Yes Problem Details: resolved - Patient Instructions Diet: Heart Healthy Diet Diet, Other: diabetic diet Showering/Bathing: May Shower - Discharge Plan *PRESCRIPTION DRUG MONITORING PROGRAM REVIEWED*: Not Applicable *COPY OF PRESCRIPTION DRUG MONITORING REPORT IN PATIENT STEPHANIE: Not Applicable Home Medications: Home Meds Sertraline [Zoloft] 100 tab PO DAILY 07/02/15 [History] Insulin Lispro [HumaLOG] 4 unit SQ TIDMEALS 02/13/16 [History] Albuterol [Ventolin HFA] 2 puff INH Q4H PRN 02/15/16 [History] Fluticasone/Salmeterol [Advair Diskus 250-50] 1 puff INH BID 05/28/16 [History] Gemfibrozil [Lopid] 600 mg PO BID 05/28/16 [History] amLODIPine Besylate [Amlodipine Besylate] 10 mg PO BEDTIME 06/02/18 [History] Mirtazapine 15 mg PO BEDTIME 01/28/19 [History] ALPRAZolam [Xanax] 0.25 mg PO Q8H PRN 05/12/19 [History] Amitriptyline HCl 75 mg PO BEDTIME 05/12/19 [History] Isosorbide Mononitrate [Imdur] 30 mg PO BEDTIME 05/12/19 [History] Bisacodyl [Dulcolax] 10 mg RECTAL DAILY PRN 06/12/19 [History] Calcitriol 0.5 mg PO ASDIRECTED 06/12/19 [History] Calcium Acetate 667 mg PO TID 06/12/19 [History] Divalproex Sodium [Divalproex Sodium ER] 2,000 mg PO BID 06/12/19 [History] Gentamicin [Gentamicin 0.1%] 1 applic TOP DAILY 06/12/19 [History] Insulin Glarg,Human.Rec.Analog [Lantus] 10 unit SQ BEDTIME 06/12/19 [History] Iron Polysaccharide Complex [Ferric X-150] 150 mg PO ASDIRECTED 06/12/19 [ History] Loratadine 10 mg PO DAILY PRN 06/12/19 [History] Metoprolol Succinate 100 mg PO BEDTIME 06/12/19 [History] Oxymetazoline [Afrin Original 0.05% Nasal [place]] 1 - 2 spray NASBOTH BID PRN [History] Polyethylene Glycol 8000 [Polyethylene Glycol] 1 packet PO DAILY PRN 06/12/19 [ History] Rosuvastatin Calcium 20 mg PO DAILY 06/12/19 [History] Saw [place] 460 mg PO DAILY 06/12/19 [History] Sennosides/Docusate Sodium [Senna-Docusate Sodium Tablet] 2 tab PO BID PRN 06/12 [History] Sodium Bicarbonate 650 mg PO TID 06/12/19 [History] levETIRAcetam [Levetiracetam] 1,000 mg PO BEDTIME 06/12/19 [History] Forms: ED Department Discharge Referrals: Eugene Skinner MD [Primary Care Provider] - - Discharge Summary/Plan Comment DC Time >30 min.: No Discharge Summary/Plan Comment: will dc home and have the pt go to his scheduled dialysis appointment, f/u with pcp this week - Review of Systems General: Reports: No Symptoms. Denies: Fever, Chills HEENT: Reports: No Symptoms Pulmonary: Reports: No Symptoms. Denies: Shortness of Breath Cardiovascular: Reports: No Symptoms, Chest Pain Gastrointestinal: Reports: No Symptoms. Denies: Abdominal Pain, Nausea, Vomiting Skin: Denies: No Symptoms - Patient Data Vitals - Most Recent: Last Vital Signs Temp 36.6 C 06/13/19 08:00 Pulse 66 06/13/19 08:00 Resp 18 06/13/19 08:00 BP 168/84 H 06/13/19 08:00 Pulse Ox 99 06/13/19 08:00 Weight - Most Recent: 64.274 kg I&O - Last 24 hours: Intake & Output 06/12/19 06/13/19 06/13/19 22:59 06:59 14:59 Intake Total 500 350 Balance 500 350 Lab Results - Last 24 hrs: Laboratory Results - last 24 hr 06/12/19 06/12/19 06/12/19 Range/Units 09:49 09:55 11:08 WBC (5.0-10.0) 10^3/uL RBC (4.50-6.00) 10^6/uL Hgb (14.0-18.0) g/dL Hct (40.0-54.0) % MCV (82.0-94.0) fL MCH (27.0-32.0) pg MCHC (33.0-38.0) g/dL RDW Coeff of Cheo (11.0-15.0) % Plt Count (150-400) 10^3/uL Neut % (Auto) (35-85) % Lymph % (Auto) (10-55) % [place] % (Auto) (0-16) % Eos % (Auto) (0-5) % Baso % (Auto) (0-3) % Neut # (Auto) (1.80-7.00) 10^3/uL Lymph # (Auto) (1.00-4.80) 10^3/uL [place] # (Auto) (0.00-0.80) 10^3/uL Eos # (Auto) (0.00-0.45) 10^3/uL Baso # (Auto) 10^3/uL Sodium (136-145) mEq/L Potassium (3.5-5.0) mEq/L Chloride (98-106) mEq/L Carbon Dioxide (21-32) mmol/L BUN (7-18) mg/dL Creatinine (0.7-1.3) mg/dL Est Cr Clr Drug Dosing mL/min Estimated GFR (MDRD) (>=60) mL/min Glucose 89 D (75-99) mg/dL POC Glucose > 500 H* 211 H (75-105) mg/dl Calcium (8.4-10.1) mg/dL Total Bilirubin (0.0-1.0) mg/dL AST (15-37) U/L ALT (12-78) U/L Alkaline Phosphatase (46-116) U/L Total Protein (6.4-8.2) g/dL Albumin (3.4-5.0) g/dL 06/12/19 06/12/19 06/12/19 Range/Units 13:00 13:03 14:11 WBC (5.0-10.0) 10^3/uL RBC (4.50-6.00) 10^6/uL Hgb (14.0-18.0) g/dL Hct (40.0-54.0) % MCV (82.0-94.0) fL MCH (27.0-32.0) pg MCHC (33.0-38.0) g/dL RDW Coeff of Cheo (11.0-15.0) % Plt Count (150-400) 10^3/uL Neut % (Auto) (35-85) % Lymph % (Auto) (10-55) % [place] % (Auto) (0-16) % Eos % (Auto) (0-5) % Baso % (Auto) (0-3) % Neut # (Auto) (1.80-7.00) 10^3/uL Lymph # (Auto) (1.00-4.80) 10^3/uL [place] # (Auto) (0.00-0.80) 10^3/uL Eos # (Auto) (0.00-0.45) 10^3/uL Baso # (Auto) 10^3/uL Sodium (136-145) mEq/L Potassium (3.5-5.0) mEq/L Chloride (98-106) mEq/L Carbon Dioxide (21-32) mmol/L BUN (7-18) mg/dL Creatinine (0.7-1.3) mg/dL Est Cr Clr Drug Dosing mL/min Estimated GFR (MDRD) (>=60) mL/min Glucose 86 (75-99) mg/dL POC Glucose 99 165 H (75-105) mg/dl Calcium (8.4-10.1) mg/dL Total Bilirubin (0.0-1.0) mg/dL AST (15-37) U/L ALT (12-78) U/L Alkaline Phosphatase (46-116) U/L Total Protein (6.4-8.2) g/dL Albumin (3.4-5.0) g/dL 06/12/19 06/12/19 06/12/19 Range/Units 15:22 16:24 20:14 WBC (5.0-10.0) 10^3/uL RBC (4.50-6.00) 10^6/uL Hgb (14.0-18.0) g/dL Hct (40.0-54.0) % MCV (82.0-94.0) fL MCH (27.0-32.0) pg MCHC (33.0-38.0) g/dL RDW Coeff of Cheo (11.0-15.0) % Plt Count (150-400) 10^3/uL Neut % (Auto) (35-85) % Lymph % (Auto) (10-55) % [place] % (Auto) (0-16) % Eos % (Auto) (0-5) % Baso % (Auto) (0-3) % Neut # (Auto) (1.80-7.00) 10^3/uL Lymph # (Auto) (1.00-4.80) 10^3/uL [place] # (Auto) (0.00-0.80) 10^3/uL Eos # (Auto) (0.00-0.45) 10^3/uL Baso # (Auto) 10^3/uL Sodium (136-145) mEq/L Potassium (3.5-5.0) mEq/L Chloride (98-106) mEq/L Carbon Dioxide (21-32) mmol/L BUN (7-18) mg/dL Creatinine (0.7-1.3) mg/dL Est Cr Clr Drug Dosing mL/min Estimated GFR (MDRD) (>=60) mL/min Glucose (75-99) mg/dL POC Glucose 120 H 130 H 130 H (75-105) mg/dl Calcium (8.4-10.1) mg/dL Total Bilirubin (0.0-1.0) mg/dL AST (15-37) U/L ALT (12-78) U/L Alkaline Phosphatase (46-116) U/L Total Protein (6.4-8.2) g/dL Albumin (3.4-5.0) g/dL 06/13/19 06/13/19 06/13/19 Range/Units 01:23 05:11 05:11 WBC 7.2 (5.0-10.0) 10^3/uL RBC 4.37 L (4.50-6.00) 10^6/uL Hgb 12.3 L (14.0-18.0) g/dL Hct 38.2 L (40.0-54.0) % MCV 87.4 (82.0-94.0) fL MCH 28.1 (27.0-32.0) pg MCHC 32.2 L (33.0-38.0) g/dL RDW Coeff of Cheo 15.3 H (11.0-15.0) % Plt Count 53 L (150-400) 10^3/uL Neut % (Auto) 67.4 (35-85) % Lymph % (Auto) 15.1 (10-55) % [place] % (Auto) 11.1 (0-16) % Eos % (Auto) 6.0 H (0-5) % Baso % (Auto) 0.4 (0-3) % Neut # (Auto) 4.87 (1.80-7.00) 10^3/uL Lymph # (Auto) 1.09 (1.00-4.80) 10^3/uL [place] # (Auto) 0.80 (0.00-0.80) 10^3/uL Eos # (Auto) 0.43 (0.00-0.45) 10^3/uL Baso # (Auto) 0.03 10^3/uL Sodium 138 (136-145) mEq/L Potassium 3.6 (3.5-5.0) mEq/L Chloride 101 (98-106) mEq/L Carbon Dioxide 27 (21-32) mmol/L BUN 29 H (7-18) mg/dL Creatinine 4.7 H* (0.7-1.3) mg/dL Est Cr Clr Drug Dosing 13.45 mL/min Estimated GFR (MDRD) 13 L (>=60) mL/min Glucose 150 H D (75-99) mg/dL POC Glucose 221 H (75-105) mg/dl Calcium 7.9 L (8.4-10.1) mg/dL Total Bilirubin 0.2 (0.0-1.0) mg/dL AST 13 L (15-37) U/L ALT 6 L (12-78) U/L Alkaline Phosphatase 78 (46-116) U/L Total Protein 6.2 L (6.4-8.2) g/dL Albumin 1.8 L (3.4-5.0) g/dL 06/13/19 Range/Units 07:56 WBC (5.0-10.0) 10^3/uL RBC (4.50-6.00) 10^6/uL Hgb (14.0-18.0) g/dL Hct (40.0-54.0) % MCV (82.0-94.0) fL MCH (27.0-32.0) pg MCHC (33.0-38.0) g/dL RDW Coeff of [place] (11.0-15.0) % Plt Count (150-400) 10^3/uL Neut % (Auto) (35-85) % Lymph % (Auto) (10-55) % [place] % (Auto) (0-16) % Eos % (Auto) (0-5) % Baso % (Auto) (0-3) % Neut # (Auto) (1.80-7.00) 10^3/uL Lymph # (Auto) (1.00-4.80) 10^3/uL [place] # (Auto) (0.00-0.80) 10^3/uL Eos # (Auto) (0.00-0.45) 10^3/uL Baso # (Auto) 10^3/uL Sodium (136-145) mEq/L Potassium (3.5-5.0) mEq/L Chloride (98-106) mEq/L Carbon Dioxide (21-32) mmol/L BUN (7-18) mg/dL Creatinine (0.7-1.3) mg/dL Est Cr Clr Drug Dosing mL/min Estimated GFR (MDRD) (>=60) mL/min Glucose (75-99) mg/dL POC Glucose 150 H (75-105) mg/dl Calcium (8.4-10.1) mg/dL Total Bilirubin (0.0-1.0) mg/dL AST (15-37) U/L ALT (12-78) U/L Alkaline Phosphatase (46-116) U/L Total Protein (6.4-8.2) g/dL Albumin (3.4-5.0) g/dL Med Orders - Current: Current Medications Albuterol (Ventolin Hfa) 0 gm INH Q4H PRN PRN Reason: Dyspnea Amlodipine Besylate (Norvasc) 10 mg PO BEDTIME [facility] Last Admin: 06/12/19 20:21 Dose: 10 mg Enoxaparin Sodium (Lovenox) 15 mg SUBCUT Q24H [facility] Last Admin: 06/12/19 12:36 Dose: 15 mg Ferrous Sulfate (Ferrous Sulfate) 648 mg PO DAILY [facility] Last Admin: 06/13/19 07:46 Dose: 648 mg Gemfibrozil (Lopid) 600 mg PO BID [facility] Last Admin: 06/13/19 07:46 Dose: 600 mg Gentamicin Sulfate (Gentamicin 0.1%) 1 gm TOP DAILY [facility] Last Admin: 06/13/19 07:50 Dose: Not Given Isosorbide Mononitrate (Imdur) 30 mg PO BEDTIME [facility] Last Admin: 06/12/19 20:25 Dose: 30 mg Metoprolol Succinate (Toprol Xl) 100 mg PO BEDTIME [facility] Last Admin: 06/12/19 20:22 Dose: 100 mg Mometasone Furoate/Formoterol Fumar (Dulera 200-5 Mcg) 2 puff IH BID [facility] Last Admin: 06/13/19 07:48 Dose: 2 inhalation Ptom Divalproex (Sodium Er 2,000 Mg) 2,000 mg PO BID [facility] Last Admin: 06/13/19 07:47 Dose: 2,000 mg Ptom Levetiracetam 1,000 Mg 1,000 mg PO BEDTIME [facility] Last Admin: 06/12/19 20:24 Dose: 1,000 mg Ptom Rosuvastatin Calcium 20 Mg 20 mg PO DAILY [facility] Last Admin: 06/13/19 07:49 Dose: 20 mg Polyethylene Glycol (Miralax) 17 gm PO DAILY PRN PRN Reason: Constipation Sertraline HCl (Zoloft) 100 mg PO DAILY [facility] Last Admin: 06/13/19 07:46 Dose: 100 mg Sodium Bicarbonate (Sodium Bicarbonate) 650 mg PO TID [facility] Last Admin: 06/13/19 07:47 Dose: 650 mg Discontinued Medications Glucagon (Glucagen) Confirm Administered Dose 1 mg .ROUTE .STK-MED ONE Stop: 06/12/19 06:36 Last Admin: 06/12/19 07:21 Dose: Not Given Glucagon (Glucagen) 1 mg IVPUSH ONETIME ONE Stop: 06/12/19 07:11 Last Admin: 06/12/19 06:56 Dose: 1 mg Glucagon (Glucagen) 1 mg IVPUSH ONETIME ONE Stop: 06/12/19 08:34 Last Admin: 06/12/19 08:21 Dose: 1 mg Sodium Chloride (Normal Saline) Confirm Administered Dose 1,000 mls @ as directed .ROUTE .STK-MED ONE Stop: 06/12/19 06:45 Last Admin: 06/12/19 07:21 Dose: Not Given Sodium Chloride (Normal Saline) 1,000 mls @ 100 mls/hr IV ASDIRECTED [facility] Last Admin: 06/12/19 07:00 Dose: 100 mls/hr Dextrose/Sodium Chloride (Dextrose 5%-1/2 Ns) 1,000 mls @ 100 mls/hr IV ASDIRECTED [facility] Last Admin: 06/12/19 09:10 Dose: 100 mls/hr - Exam General: Reports: Alert, Oriented, Cooperative, No Acute Distress Neck: Reports: Supple Lungs: Reports: Clear to Auscultation, Normal Respiratory Effort Cardiovascular: Reports: Regular Rate, Regular Rhythm GI/Abdominal Exam: Soft, Non-Tender Back Exam: Reports: Normal Inspection, Full Range of Motion Extremities: Normal Inspection, Normal Range of Motion, Non-Tender Skin: Reports: Warm, Dry, Intact Neurological: Reports: No New Focal Deficit Psy/Mental Status: Reports: Alert, Normal Affect, Normal Mood
== END 2019-06-13 11:15 | disposition home or self-care (01) ==
LOC: CC.ED 06:36 → CC.MS 09:33 → CC.ED 09:58 → CC.MS 10:06 → UNDOADMOB 10:06
PROVIDERS: ADMIT Physician Assistant Medical; ATTEND Family Medicine
DX: E16.2 Hypoglycemia, unspecified (principal); R41.82 Altered mental status, unspecified; E78.00 Pure hypercholesterolemia, unspecified; I10 Essential (primary) hypertension; J44.9 Chronic obstructive pulmonary disease, unspecified; N40.0 Benign prostatic hyperplasia without lower urinary tract symptoms; M19.90 Unspecified osteoarthritis, unspecified site; F41.9 Anxiety disorder, unspecified; F32.9 Major depressive disorder, single episode, unspecified; E11.9 Type 2 diabetes mellitus without complications; Z79.899 Other long term (current) drug therapy; Z79.4 Long term (current) use of insulin; Z79.51 Long term (current) use of inhaled steroids; Z88.0 Allergy status to penicillin; Z88.1 Allergy status to other antibiotic agents
CPT/HCPCS: 36415; 70450; 80053; 82947; 82962; 85025; 86140; 96361; 96365; 96372; 96375; 96376; 99217; 99220; 99285; A9270; G0378; J1610; J1650; J7030; J7042

== ENCOUNTER 2019-06-14 02:05 | Inpatient (IN) | payer MEDICARE, OTHER ==
--- NOTE | 2019-06-14 02:34 | EDM.PDOC ---
ED HPI GENERAL MEDICAL PROBLEM - General Chief Complaint: General Stated Complaint: confusion Time Seen by Provider: 06/14/19 02:21 Source of Information: Reports: Patient, EMS History Limitations: Reports: Other (confusion) - History of Present Illness INITIAL COMMENTS - FREE TEXT/NARRATIVE: in by EMS where the advised he has been confused at home, the pt was dc from the hospital today and had dialysis in [place], the pt does appear to be confused from today when he was dc, the pts did not come with him tonight Onset: Sudden Duration: Hour(s): Severity: Moderate Improves with: Reports: None Worsens with: Reports: None Associated Symptoms: Reports: Confusion, Fever/Chills Treatments PRESIDENT AND CMO: Reports: Other (see below) (none) - Related Data Allergies Allergy/AdvReac Type Severity Reaction Status Date / Time amoxicillin Allergy Itching Verified 06/14/19 02:23 erythromycin base Allergy Nausea Verified 06/14/19 02:23 penicillin Allergy Swelling Verified 06/14/19 02:23 Home Meds: Home Meds Sertraline [Zoloft] 100 tab PO DAILY 07/02/15 [History] Insulin Lispro [HumaLOG] 4 unit SQ TIDMEALS 02/13/16 [History] Albuterol [Ventolin HFA] 2 puff INH Q4H PRN 02/15/16 [History] Fluticasone/Salmeterol [Advair Diskus 250-50] 1 puff INH BID 05/28/16 [History] Gemfibrozil [Lopid] 600 mg PO BID 05/28/16 [History] amLODIPine Besylate [Amlodipine Besylate] 10 mg PO BEDTIME 06/02/18 [History] Mirtazapine 15 mg PO BEDTIME 01/28/19 [History] ALPRAZolam [Xanax] 0.25 mg PO Q8H PRN 05/12/19 [History] Amitriptyline HCl 75 mg PO BEDTIME 05/12/19 [History] Isosorbide Mononitrate [Imdur] 30 mg PO BEDTIME 05/12/19 [History] Bisacodyl [Dulcolax] 10 mg RECTAL DAILY PRN 06/12/19 [History] Calcitriol 0.5 mg PO ASDIRECTED 06/12/19 [History] Calcium Acetate 667 mg PO TID 06/12/19 [History] Divalproex Sodium [Divalproex Sodium ER] 2,000 mg PO BID 06/12/19 [History] Gentamicin [Gentamicin 0.1%] 1 applic TOP DAILY 06/12/19 [History] Insulin Glarg,Human.Rec.Analog [Lantus] 10 unit SQ BEDTIME 06/12/19 [History] Iron Polysaccharide Complex [Ferric X-150] 150 mg PO ASDIRECTED 06/12/19 [ History] Loratadine 10 mg PO DAILY PRN 06/12/19 [History] Metoprolol Succinate 100 mg PO BEDTIME 06/12/19 [History] Oxymetazoline [Afrin Original 0.05% Nasal [place]] 1 - 2 spray NASBOTH BID PRN [History] Polyethylene Glycol 8000 [Polyethylene Glycol] 1 packet PO DAILY PRN 06/12/19 [ History] Rosuvastatin Calcium 20 mg PO DAILY 06/12/19 [History] Saw [place] 460 mg PO DAILY 06/12/19 [History] Sennosides/Docusate Sodium [Senna-Docusate Sodium Tablet] 2 tab PO BID PRN 06/12 [History] Sodium Bicarbonate 650 mg PO TID 06/12/19 [History] levETIRAcetam [Levetiracetam] 1,000 mg PO BEDTIME 06/12/19 [History] Past Medical History HEENT History: Reports: Allergic Rhinitis, Other (See Below) Other HEENT History: left eardrum trauma Cardiovascular History: Reports: High Cholesterol, Hypertension, Other (See Below) Other Cardiovascular History: pt states will have to see a filer repairer for possilbe stent placement. Respiratory History: Reports: Asthma, COPD Gastrointestinal History: Reports: Pancreatitis, PUD Genitourinary History: Reports: BPH Musculoskeletal History: Reports: Arthritis, Back Pain, Chronic, Osteoarthritis Neurological History: Reports: Seizure, Other (See Below) Other Neuro History: viral encephalitis Psychiatric History: Reports: Anxiety, Depression Endocrine/Metabolic History: Reports: Diabetes, Type II Immunologic History: Reports: Other (See Below) Other Immunologic History: Hx of shingles - Infectious Disease History Infectious Disease History: Reports: Shingles - Past Surgical History Cardiovascular Surgical History: Reports: Vascular Surgery (perm cath placement for dialysis.) GI Surgical History: Reports: Cholecystectomy, Colonoscopy Neurological Surgical History: Reports: Laminectomy, Lumbar Spine, Spinal Fusion , Other (See Below) Musculoskeletal Surgical History: Reports: Knee Replacement, Shoulder Surgery Social & Family History - Family History Family Medical History: Noncontributory - Caffeine Use Caffeine Use: Reports: None - Living Situation & Occupation Living situation: Reports: , with Spouse Occupation: Retired ED ROS GENERAL - Review of Systems Review Of Systems: See Below Constitutional: Reports: Fever HEENT: Reports: No Symptoms Respiratory: Reports: No Symptoms. Denies: Cough Cardiovascular: Reports: No Symptoms GI/Abdominal: Denies: Vomiting Musculoskeletal: Reports: No Symptoms Skin: Reports: No Symptoms, Other (has abrasion right upper ext). Denies: Rash Neurological: Reports: Confusion Psychiatric: Reports: No Symptoms ED EXAM, GENERAL - Physical Exam Exam: See Below Exam Limited By: No Limitations General Appearance: Alert, WD/WN, No Apparent Distress Eye Exam: Bilateral Eye: PERRL Nose: Normal Inspection Throat/Mouth: Normal Lips, No Airway Compromise Head: Atraumatic, Normocephalic Neck: Normal Inspection, Supple Respiratory/Chest: No Respiratory Distress, Lungs Clear, Normal Breath Sounds Cardiovascular: Normal Peripheral Pulses, Regular Rate, Rhythm Peripheral Pulses: 2+: Radial (L) GI/Abdominal: Soft, Non-Tender Back Exam: Normal Inspection Extremities: Normal Inspection (except abrasion right upper ext, hand and elbow area), Normal Range of Motion, Non-Tender, Normal Capillary Refill Neurological: Alert, Other (does not follow commands to assess CN). No: Oriented Psychiatric: Normal Affect Skin Exam: Warm, Dry, Intact (except abrasions as above), Normal Color, No Rash Course - Vital Signs Text/Narrative:: the pt was evaluated in the ED, CBC shows chronically low plts and chronic anemia, gen chem does show chronic renal failure, K+ normal, cxr neg, CT head is pending radiology reading, UA is pending, will admit to observation and reassess pt later this morning and discussion a disposition with the pts . Last Recorded V/S: Last Vital Signs Temp 37.7 C 06/14/19 02:29 Pulse 80 06/14/19 02:29 Resp 24 H 06/14/19 02:29 BP 187/93 H 06/14/19 02:29 Pulse Ox 95 06/14/19 02:29 - Orders/Labs/Meds Orders: Active Orders 24 hr Category Date Time Status Chest 1V Frontal [CR] Stat Exams 06/14/19 02:27 Taken Head wo Cont [CT] Stat Exams 06/14/19 02:28 Taken CULTURE BLOOD [BC] Stat Lab 06/14/19 03:02 Received CULTURE BLOOD [BC] Stat Lab 06/14/19 03:02 Received UA W/CHELA RFLX IF INDICATED [URIN] Stat Lab 06/14/19 02:27 Ordered Blood Culture x2 Reflex Set [OM.PC] Stat Oth 06/14/19 02:27 Ordered Labs: Laboratory Tests 06/14/19 06/14/19 06/14/19 Range/Units 03:02 03:02 03:02 WBC 7.6 (5.0-10.0) 10^3/uL RBC 4.22 L (4.50-6.00) 10^6/uL Hgb 11.9 L (14.0-18.0) g/dL Hct 37.2 L (40.0-54.0) % MCV 88.2 (82.0-94.0) fL MCH 28.2 (27.0-32.0) pg MCHC 32.0 L (33.0-38.0) g/dL RDW Coeff of Cheo 15.5 H (11.0-15.0) % Plt Count 47 L* (150-400) 10^3/uL Neut % (Auto) 68.0 (35-85) % Lymph % (Auto) 15.2 (10-55) % [place] % (Auto) 11.4 (0-16) % Eos % (Auto) 4.9 (0-5) % Baso % (Auto) 0.5 (0-3) % Neut # (Auto) 5.14 (1.80-7.00) 10^3/uL Lymph # (Auto) 1.15 (1.00-4.80) 10^3/uL [place] # (Auto) 0.86 H (0.00-0.80) 10^3/uL Eos # (Auto) 0.37 (0.00-0.45) 10^3/uL Baso # (Auto) 0.04 10^3/uL Sodium 139 (136-145) mEq/L Potassium 3.6 (3.5-5.0) mEq/L Chloride 99 (98-106) mEq/L Carbon Dioxide 30 (21-32) mmol/L BUN 15 (7-18) mg/dL Creatinine 3.0 H* (0.7-1.3) mg/dL Est Cr Clr Drug Dosing 21.86 mL/min Estimated GFR (MDRD) 21 L (>=60) mL/min Glucose 150 H (75-99) mg/dL Lactic Acid 0.7 (0.4-2.0) mmol/L Calcium 8.3 L (8.4-10.1) mg/dL Total Bilirubin 0.2 (0.0-1.0) mg/dL AST 15 (15-37) U/L ALT 6 L (12-78) U/L Alkaline Phosphatase 83 (46-116) U/L Total Protein 6.6 (6.4-8.2) g/dL Albumin 2.0 L (3.4-5.0) g/dL Departure - Departure Time of Disposition: 03:32 Disposition: Admitted As Inpatient 64 Condition: Good Clinical Impression: Confusion, Thrombocytopenia, Anemia, ESRD (end stage renal disease) - Discharge Information *PRESCRIPTION DRUG MONITORING PROGRAM REVIEWED*: Not Applicable *COPY OF PRESCRIPTION DRUG MONITORING REPORT IN PATIENT STEPHANIE: Not Applicable Referrals: Eugene Skinner MD [Primary Care Provider] - Forms: ED Department Discharge - Problem List & Annotations (1) Anemia SNOMED Code(s): 176966082 Code(s): D64.9 - ANEMIA, UNSPECIFIED Status: Acute Priority: Low Current Visit: Yes Qualifiers: Anemia type: unspecified type Qualified Code(s): D64.9 - Anemia, unspecified (2) Confusion SNOMED Code(s): 555543538 Code(s): R41.0 - DISORIENTATION, UNSPECIFIED Status: Acute Priority: High Current Visit: Yes (3) ESRD (end stage renal disease) SNOMED Code(s): 23240647 Code(s): N18.6 - END STAGE RENAL DISEASE Status: Acute Priority: Low Current Visit: Yes (4) Thrombocytopenia SNOMED Code(s): 223868565 Code(s): D69.6 - THROMBOCYTOPENIA, UNSPECIFIED Status: Acute Priority: Low Current Visit: Yes - Problem List Review Problem List Initiated/Reviewed/Updated: Yes - My Orders Last 24 Hours: My Active Orders 06/14/19 02:27 Chest 1V Frontal [CR] Stat UA W/CHELA RFLX IF INDICATED [URIN] Stat Blood Culture x2 Reflex Set [OM.PC] Stat 06/14/19 02:28 Head wo Cont [CT] Stat 06/14/19 03:02 CULTURE BLOOD [BC] Stat CULTURE BLOOD [BC] Stat - Assessment/Plan Admission H&P: Please use this note as an admission H&P Last 24 Hours: My Active Orders 06/14/19 02:27 Chest 1V Frontal [CR] Stat UA W/CHELA RFLX IF INDICATED [URIN] Stat Blood Culture x2 Reflex Set [OM.PC] Stat 06/14/19 02:28 Head wo Cont [CT] Stat 06/14/19 03:02 CULTURE BLOOD [BC] Stat CULTURE BLOOD [BC] Stat Plan: as above
[2019-06-14] MEDS ORDERED: Sodium Chloride 0.9% 10 ML Syringe FLUSH PRN (03:37)
[2019-06-14] MEDS ORDERED: Loratadine 10 MG Tab PO PRN (03:43)
[2019-06-14] MEDS ORDERED: Bisacodyl 10 MG Supp RECTAL PRN (03:43)
[2019-06-14] MEDS ORDERED: Oxymetazoline 0.05% Nasal Spray 15 ML Bottle NASBOTH PRN (03:43)
[2019-06-14] MEDS ORDERED: POLYETHYLENE GLYCOL PO PRN (03:43)
[2019-06-14] MEDS ORDERED: Albuterol 8 GM Inhaler INH PRN (03:43)
[2019-06-14] MEDS ORDERED: Docusate Sodium/Sennosides 50-8.6 MG Tab**OWN MED PO PRN (03:43)
[2019-06-14] MEDS ORDERED: ALPRAZolam 0.25 MG Tab PO PRN (03:43)
[2019-06-14] MEDS ORDERED: Calcitriol 0.25 MCG Cap PO SCH (03:45)
[2019-06-14] MEDS ORDERED: Iron Polysaccharides Complex 150 MG Cap PO SCH (03:45)
[2019-06-14] MEDS ORDERED: Polyethylene Glycol 3350 Powder 17 GM Packet PO PRN (04:45)
[2019-06-14] MEDS ORDERED: Formoterol/Mometasone 200-5 MCG 8.8 GM Inhaler IH SCH (08:00)
[2019-06-14] MEDS ORDERED: Sertraline 100 MG Tab PO SCH (08:00)
[2019-06-14] MEDS: GENTAMICIN TOP SCH (08:14)
[2019-06-14] MEDS: SAW PALMETTO PO SCH (08:15)
[2019-06-14] MEDS: Insulin Lispro 100 Units/ML 3 ML Vial SUBCUT SCH ×3 (08:15→18:49)
[2019-06-14] MEDS: cefTRIAXone 1 GM Vial IM ONE ×2 (08:32→08:37)
[2019-06-14] MEDS ORDERED: cefTRIAXone 1 GM Vial IVPUSH ONE (08:36)
[2019-06-14] MEDS: CALCIUM ACETATE 667 MG PO SCH ×3 (08:41→18:49)
[2019-06-14] MEDS: Sertraline 100 MG Tab**OWN MED PO SCH (08:41)
[2019-06-14] MEDS: Formoterol/Mometasone 200-5 MCG 8.8 GM Inhaler**OWN MED IH SCH ×2 (08:41→20:18)
[2019-06-14] MEDS: DIVALPROEX SODIUM 500 MG PO SCH ×2 (08:42→20:19)
[2019-06-14] MEDS: SODIUM BICARBONATE 650 MG PO SCH ×3 (08:42→20:22)
[2019-06-14] MEDS: GEMFIBROZIL 600 MG PO SCH ×2 (08:42→20:23)
[2019-06-14] MEDS ORDERED: amLODIPine 10 MG Tab PO ONE (13:42)
[2019-06-14] MEDS ORDERED: Mirtazapine 15 MG Tab**OWN MED PO SCH (20:00)
[2019-06-14] MEDS ORDERED: Simvastatin 40 MG Tab PO SCH (20:00)
[2019-06-14] MEDS ORDERED: Insulin Glargine,Human Rec. Analog 100 Units/ML 3 ML Pen SUBCUT SCH (20:00)
[2019-06-14] MEDS ORDERED: Amitriptyline 25 MG Tab PO SCH (20:00)
[2019-06-14] MEDS ORDERED: levETIRAcetam 500 MG Tab PO SCH (20:00)
[2019-06-14] MEDS ORDERED: AMITRIPTYLINE 75 MG PO SCH ×2 (22:43→23:45)
[2019-06-14] MEDS: ROSUVASTATIN 20 MG PO SCH (22:57)
[2019-06-14] MEDS: Isosorbide Mononitrate 30 MG Tab.ER**OWN MED PO SCH (22:58)
[2019-06-14] MEDS: amLODIPine 10 MG Tab**OWN MED PO SCH (23:01)
[2019-06-14] MEDS: Metoprolol Succinate 100 MG Tab.ER**OWN MED PO SCH (23:01)
[2019-06-15] MEDS: SODIUM BICARBONATE 650 MG PO SCH ×3 (10:46→19:56)
[2019-06-15] MEDS: DIVALPROEX SODIUM 500 MG PO SCH ×2 (10:47→19:51)
[2019-06-15] MEDS: SAW PALMETTO PO SCH (10:47)
[2019-06-15] MEDS: GEMFIBROZIL 600 MG PO SCH ×2 (10:47→19:53)
[2019-06-15] MEDS: CALCIUM ACETATE 667 MG PO SCH ×3 (10:48→18:08)
[2019-06-15] MEDS: GENTAMICIN TOP SCH (10:48)
[2019-06-15] MEDS: Formoterol/Mometasone 200-5 MCG 8.8 GM Inhaler**OWN MED IH SCH ×2 (10:48→19:52)
[2019-06-15] MEDS: Sertraline 100 MG Tab**OWN MED PO SCH (10:49)
[2019-06-15] MEDS: Insulin Lispro 100 Units/ML 3 ML Vial SUBCUT SCH ×2 (10:51→18:08)
[2019-06-15] MEDS: ROSUVASTATIN 20 MG PO SCH (19:55)
[2019-06-15] MEDS: Isosorbide Mononitrate 30 MG Tab.ER**OWN MED PO SCH (19:58)
[2019-06-15] MEDS: amLODIPine 10 MG Tab**OWN MED PO SCH (19:59)
[2019-06-15] MEDS ORDERED: Ferrous Sulfate 324 MG Tab.EC PO SCH (20:00)
[2019-06-15] MEDS: Metoprolol Succinate 100 MG Tab.ER**OWN MED PO SCH (20:00)
[2019-06-15] MEDS ORDERED: **PTOM** Mirtazapine 15 MG Tab PO SCH (20:00)
--- NOTE | 2019-06-15 21:19 | PCM.PN ---
- General Info Date of Service: 06/15/19 Admission Dx/Problem (Free Text): Altered Mental Status Functional Status: Reports: Pain Controlled, Tolerating Diet - Review of Systems General: Reports: Weakness, Fatigue HEENT: Reports: No Symptoms Pulmonary: Denies: Shortness of Breath, Cough Cardiovascular: Denies: Chest Pain, Edema, Lightheadedness Gastrointestinal: Denies: Abdominal Pain, Nausea, Vomiting Genitourinary: Reports: No Symptoms Skin: Reports: No Symptoms Neurological: Reports: Weakness - Patient Data Vitals - Most Recent: Last Vital Signs Temp 98.7 F 06/15/19 16:00 Pulse 79 06/15/19 20:00 Resp 16 06/15/19 16:00 BP 190/88 H 06/15/19 20:00 Pulse Ox 97 06/15/19 16:00 Weight - Most Recent: 141 lb I&O - Last 24 Hours: Intake & Output 06/15/19 06/15/19 06/15/19 06:59 14:59 22:59 Intake Total 300 350 Output Total 1000 200 Balance -700 150 Lab Results Last 24 Hours: Laboratory Results - last 24 hr 06/15/19 06/15/19 06/15/19 Range/Units 07:00 08:19 09:00 WBC 6.8 (5.0-10.0) 10^3/uL RBC 4.12 L (4.50-6.00) 10^6/uL Hgb 11.6 L (14.0-18.0) g/dL Hct 36.0 L (40.0-54.0) % MCV 87.4 (82.0-94.0) fL MCH 28.2 (27.0-32.0) pg MCHC 32.2 L (33.0-38.0) g/dL RDW Coeff of Che[place] 15.2 H (11.0-15.0) % Plt Count 48 L* (150-400) 10^3/uL Neut % (Auto) 63.2 (35-85) % Lymph % (Auto) 16.2 (10-55) % [place] % (Auto) 11.9 (0-16) % Eos % (Auto) 8.1 H (0-5) % Baso % (Auto) 0.6 (0-3) % Neut # (Auto) 4.31 (1.80-7.00) 10^3/uL Lymph # (Auto) 1.10 (1.00-4.80) 10^3/uL [place] # (Auto) 0.81 H (0.00-0.80) 10^3/uL Eos # (Auto) 0.55 H (0.00-0.45) 10^3/uL Baso # (Auto) 0.04 10^3/uL Sodium 139 (136-145) mEq/L Potassium 3.5 (3.5-5.0) mEq/L Chloride 100 (98-106) mEq/L Carbon Dioxide 27 (21-32) mmol/L BUN 25 H D (7-18) mg/dL Creatinine 4.6 H* D (0.7-1.3) mg/dL Est Cr Clr Drug Dosing 14.25 mL/min Estimated GFR (MDRD) 13 L (>=60) mL/min Glucose 89 D (75-99) mg/dL POC Glucose 95 (75-105) mg/dl Calcium 8.6 (8.4-10.1) mg/dL Total Bilirubin 0.2 (0.0-1.0) mg/dL AST 12 L (15-37) U/L ALT 5 L (12-78) U/L Alkaline Phosphatase 84 (46-116) U/L C-Reactive Protein 9.7 H (0.2-0.8) mg/dL Total Protein 6.5 (6.4-8.2) g/dL Albumin 1.8 L (3.4-5.0) g/dL 06/15/19 06/15/19 06/15/19 Range/Units 12:01 17:11 20:29 WBC (5.0-10.0) 10^3/uL RBC (4.50-6.00) 10^6/uL Hgb (14.0-18.0) g/dL Hct (40.0-54.0) % MCV (82.0-94.0) fL MCH (27.0-32.0) pg MCHC (33.0-38.0) g/dL RDW Coeff of [place] (11.0-15.0) % Plt Count (150-400) 10^3/uL Neut % (Auto) (35-85) % Lymph % (Auto) (10-55) % [place] % (Auto) (0-16) % Eos % (Auto) (0-5) % Baso % (Auto) (0-3) % Neut # (Auto) (1.80-7.00) 10^3/uL Lymph # (Auto) (1.00-4.80) 10^3/uL [place] # (Auto) (0.00-0.80) 10^3/uL Eos # (Auto) (0.00-0.45) 10^3/uL Baso # (Auto) 10^3/uL Sodium (136-145) mEq/L Potassium (3.5-5.0) mEq/L Chloride (98-106) mEq/L Carbon Dioxide (21-32) mmol/L BUN (7-18) mg/dL Creatinine (0.7-1.3) mg/dL Est Cr Clr Drug Dosing mL/min Estimated GFR (MDRD) (>=60) mL/min Glucose (75-99) mg/dL POC Glucose 74 L 91 92 (75-105) mg/dl Calcium (8.4-10.1) mg/dL Total Bilirubin (0.0-1.0) mg/dL AST (15-37) U/L ALT (12-78) U/L Alkaline Phosphatase (46-116) U/L C-Reactive Protein (0.2-0.8) mg/dL Total Protein (6.4-8.2) g/dL Albumin (3.4-5.0) g/dL [place] Results Last 24 Hours: Microbiology 06/14/19 03:02 Aerobic Blood Culture - Preliminary Blood - Venous NO GROWTH AFTER 1 DAY Anaerobic Blood Culture - Preliminary NO GROWTH AFTER 1 DAY 06/14/19 03:02 Aerobic Blood Culture - Preliminary Blood - Venous - Lab Draw NO GROWTH AFTER 1 DAY Anaerobic Blood Culture - Preliminary NO GROWTH AFTER 1 DAY Med Orders - Current: Current Medications Albuterol (Ventolin Hfa) 0 gm INH Q4H PRN PRN Reason: Dyspnea Alprazolam (Xanax) 0.25 mg PO Q8H PRN PRN Reason: Anxiety Amlodipine Besylate (Norvasc) 10 mg PO BEDTIME [facility] Last Admin: 06/15/19 19:59 Dose: 10 mg Bisacodyl (Dulcolax) 10 mg RECTAL DAILY PRN PRN Reason: Constipation Calcium Acetate (Phoslo) 667 mg PO TIDMEALS [facility] Last Admin: 06/15/19 18:08 Dose: 667 mg Ferrous Sulfate (Ferrous Sulfate) 324 mg PO BEDTIME [facility] Last Admin: 06/15/19 20:01 Dose: 324 mg Gemfibrozil (Lopid) 600 mg PO BID [facility] Last Admin: 06/15/19 19:53 Dose: 600 mg Gentamicin Sulfate (Gentamicin 0.1%) 1 gm TOP DAILY [facility] Insulin Glargine (Lantus Solostar) 10 units SUBCUT BEDTIME [facility] Last Admin: 06/14/19 20:34 Dose: 10 units Insulin Human [facility]al[facility] Last Admin: 06/15/19 18:08 Dose: Not Given Isosorbide Mononitrate (Imdur) 30 mg PO BEDTIME [facility] Last Admin: 06/15/19 19:58 Dose: 30 mg Loratadine (Claritin) 10 mg PO DAILY PRN PRN Reason: Allergies Metoprolol Succinate (Toprol Xl) 100 mg PO BEDTIME [facility] Last Admin: 06/15/19 20:00 Dose: 100 mg Mirtazapine (Remeron) 7.5 mg PO BEDTIME [facility] Last Admin: 06/15/19 19:59 Dose: 7.5 mg Mometasone Furoate/Formoterol Fumar (Dulera 200-5 Mcg) 2 puff IH BID [facility] Last Admin: 06/15/19 19:52 Dose: Not Given Divalproex Sodium [ Divalproex Sodium Er ] 500 MgOwn Med 2,000 mg PO BID [facility] Last Admin: 06/15/19 19:51 Dose: 2,000 mg Rosuvastatin 20mg (TabOwn Med) 1 each PO BEDTIME [facility] Last Admin: 06/15/19 19:55 Dose: 1 each Levetiracetam 1000mg (TabOwn Med) 1 each PO BEDTIME [facility] Last Admin: 06/15/19 19:57 Dose: Not Given Oxymetazoline HCl (Afrin Original 0.05% Nasal [place]) 0 ml NASBOTH BID PRN PRN Reason: Congestion Polyethylene Glycol (Miralax) 17 gm PO DAILY PRN PRN Reason: Constipation Senna/Docusate Sodium (Senna Plus) 2 tab PO BID PRN PRN Reason: Constipation Sertraline HCl (Zoloft) 100 mg PO DAILY [facility] Last Admin: 06/15/19 10:49 Dose: 100 mg Sodium Bicarbonate (Sodium Bicarbonate) 650 mg PO TID [facility] Last Admin: 06/15/19 19:56 Dose: 650 mg Sodium Chloride (Saline Flush) 10 ml FLUSH ASDIRECTED PRN PRN Reason: Keep Vein Open Discontinued Medications Amitriptyline HCl (Elavil) 75 mg PO BEDTIME [facility] Last Admin: 06/14/19 23:22 Dose: Not Given Amlodipine Besylate (Norvasc) 10 mg PO ONETIME ONE Stop: 06/14/19 13:43 Last Admin: 06/14/19 13:55 Dose: 10 mg Calcitriol (Rocaltrol) 500 mcg PO ASDIRECTED [facility] Ceftriaxone Sodium (Rocephin) 1 gm IM ONETIME ONE Stop: 06/14/19 07:14 Last Admin: 06/14/19 08:37 Dose: Not Given Ceftriaxone Sodium (Rocephin) 1 gm IVPUSH ONETIME ONE Stop: 06/14/19 08:37 Last Admin: 06/14/19 08:42 Dose: 1 gm Insulin Human Lispro (Humalog) 4 unit SUBCUT TIDMEALS [facility] Last Admin: 06/15/19 10:51 Dose: Not Given Levetiracetam (Keppra) 1,000 mg PO BEDTIME [facility] Last Admin: 06/14/19 23:22 Dose: Not Given Mirtazapine (Remeron) 15 mg PO BEDTIME [facility] Last Admin: 06/14/19 22:55 Dose: 15 mg Mometasone Furoate/Formoterol Fumar (Dulera 200-5 Mcg) 2 puff IH BID [facility] Non-Formulary Medication (Gentamicin [Gentamicin 0.1%]) 1 applic TOP DAILY [facility] Last Admin: 06/15/19 10:48 Dose: Not Given Non-Formulary Medication (Polyethylene Glycol 8000 [Polyethylene Glycol]) 1 packet PO DAILY PRN PRN Reason: Constipation Non-Formulary Medication (Saw [place] [Saw [place]]) 460 mg PO DAILY [facility] Last Admin: 06/15/19 10:47 Dose: Not Given Amitriptyline 75mg (TabOwn Med) 1 each PO BEDTIME [facility] Levetiracetam 1000mg (TabOwn Med) 1 each PO BEDTIME [facility] Amitriptyline 75mg (TabOwn Med) 1 each PO BEDTIME [facility] Last Admin: 06/14/19 23:39 Dose: 1 each Calcitriol 0.5 Mcg (Cap Own Med) 0.5 mcg PO DAILY [facility] Polysaccharide Iron Complex (Ferrex 150) 150 mg PO ASDIRECTED [facility] Sertraline HCl (Zoloft) 10,000 mg PO DAILY [facility] Last Admin: 06/14/19 08:50 Dose: Not Given - Exam General: Alert, Oriented (patient was unresponsive this am, unable to around. Now at lunch time, patient is more alert, answers questions appropriately. Oriented to person and place. ) Neck: Supple Lungs: Clear to Auscultation, Normal Respiratory Effort Cardiovascular: Regular Rate, Regular Rhythm GI/Abdominal Exam: Normal Bowel Sounds, Soft, Non-Tender Extremities: Normal Inspection, No Pedal Edema Skin: Warm, Dry - Problem List & Annotations (1) Altered mental status SNOMED Code(s): 884792115 Code(s): R41.82 - ALTERED MENTAL STATUS, UNSPECIFIED Status: Acute Priority: High Current Visit: Yes Qualifiers: Altered mental status type: unspecified Qualified Code(s): R41.82 - Altered mental status, unspecified (2) CKD (chronic kidney disease) requiring chronic dialysis SNOMED Code(s): 086328746 Code(s): N18.6 - END STAGE RENAL DISEASE; Z99.2 - DEPENDENCE ON RENAL DIALYSIS Status: Chronic Priority: Medium Current Visit: Yes (3) Anemia SNOMED Code(s): 689728261 Code(s): D64.9 - ANEMIA, UNSPECIFIED Status: Acute Priority: Medium Current Visit: Yes Qualifiers: Anemia type: unspecified type Qualified Code(s): D64.9 - Anemia, unspecified - Problem List Review Problem List Initiated/Reviewed/Updated: Yes - My Orders Last 24 Hours: My Active Orders 06/15/19 17:00 Insulin Lispro [HumaLOG] See Protocol SUBCUT BIDAC 06/15/19 20:00 Mirtazapine [Remeron] 7.5 mg PO BEDTIME - Assessment Assessment:: Altered Mental Status - Plan Plan:: This am on rounds, patient was unresponsive, unable to arouse. Blood sugars 90s. Did have blood draw without response. Lung sounds clear, heart rhythm regular. NO edema. REturned back at 12 noon, patient sitting upright in bed, feeding self. Oriented to person and place. Answering questions but still has poor recall of events. at bedside. IS agreeable that patient would have very difficult time to care for self at home, has been in and out of hospital over the last 2 months. Medication adjustments made this am due to concerns that meds related to sedation. Did stop her Amitryptiline and reduced Remeron to 7.5 mg. Will hold Lantus, start sliding scale insulin. WBC is stable. Creatinine 4.6. CRP 9.7. Will monitor status with med changes. Repeat labs in am. Will need to discuss need for discharge in order to proceed with dialysis tomorrow, which is due at 1245.
[2019-06-16 03:29] VITALS: BP 174/79; PULSE 68
[2019-06-16] MEDS: Insulin Lispro 100 Units/ML 3 ML Vial SUBCUT SCH (07:21)
[2019-06-16] MEDS: Formoterol/Mometasone 200-5 MCG 8.8 GM Inhaler**OWN MED IH SCH (07:23)
[2019-06-16] MEDS: GEMFIBROZIL 600 MG PO SCH (07:26)
[2019-06-16] MEDS: CALCIUM ACETATE 667 MG PO SCH (07:28)
[2019-06-16] MEDS: Sertraline 100 MG Tab**OWN MED PO SCH (07:29)
[2019-06-16] MEDS: SODIUM BICARBONATE 650 MG PO SCH (07:29)
[2019-06-16] MEDS ORDERED: CALCITRIOL 0.5 MCG PO SCH (08:00)
[2019-06-16] MEDS: DIVALPROEX SODIUM 500 MG PO SCH (08:12)
--- NOTE | 2019-06-16 21:29 | PCM.DCSUM1 ---
Discharge Summary - Hospital Course Free Text/Narrative:: Patient presented to ER per EMS with increased confusion. Had just been discharged from the hospital in am to have dialysis. Patient noted to be disoriented in ER. Labs relatively stable for patient. ADmitted for monitoring , head CT done and clear. Diagnosis: Stroke: No Modified Dewitt Scale: No Symptoms at All Modified Rohit Scale Score: 0 - Discharge Data Discharge Date: 06/16/19 Discharge Disposition: Home, W Home Health Agency 06 Condition: Good - Discharge Diagnosis/Problem(s) (1) Altered mental status SNOMED Code(s): 538777037 ICD Code: R41.82 - ALTERED MENTAL STATUS, UNSPECIFIED Status: Acute Priority: High Qualifiers: Altered mental status type: unspecified Qualified Code(s): R41.82 - Altered mental status, unspecified (2) CKD (chronic kidney disease) requiring chronic dialysis SNOMED Code(s): 714546296 ICD Code: N18.6 - END STAGE RENAL DISEASE; Z99.2 - DEPENDENCE ON RENAL DIALYSIS Status: Chronic Priority: High (3) Anemia SNOMED Code(s): 704378054 ICD Code: D64.9 - ANEMIA, UNSPECIFIED Status: Acute Priority: Medium Qualifiers: Anemia type: unspecified type Qualified Code(s): D64.9 - Anemia, unspecified - Patient Summary/Data Complications: none Consults: Consultations 06/16/19 07:36 Consult to Case Management/Data Officer [CONS] Routine Hospital Course: Patient was minimally responsive on day 1 in am, awakens through the afternoon. Is oriented once awake. Did readjust his medications, stopping Amitriptyline and reduced Remeron as is so lethargic in am. Does feed self, climb out of bed per self when awake but needs to be redirected often. Labs have remained relatively normal for patient. Had discussion with about confusion, readmits, ability to be independent at home as she also has chronic health concerns. He is currently on dialysis 3 times per week. visitor services associate involved. Does feel he may require placement [facility] but is unsure at this time due to finances. Discharged today for dialysis. Will return home under 's care. Is due for dialysis port removal tomorrow. Home health services for patient for monitoring of ability to care for self, blood pressure, medication compliance and tolerance. Physical and occupational therapy for strengthening and ADLs. Patient is homebound due to inability to drive due to altered mental status. Dr. Skinner to oversee plan of care. - Patient Instructions Diet: Usual Diet as Tolerated Activity: As Tolerated - Discharge Plan *PRESCRIPTION DRUG MONITORING PROGRAM REVIEWED*: Not Applicable *COPY OF PRESCRIPTION DRUG MONITORING REPORT IN PATIENT STEPHANIE: Not Applicable Prescriptions/Med Rec: Mirtazapine [Remeron] 7.5 mg PO BEDTIME #30 tablet Home Medications: Home Meds Sertraline [Zoloft] 100 tab PO DAILY 07/02/15 [History] Albuterol [Ventolin HFA] 2 puff INH Q4H PRN 02/15/16 [History] Fluticasone/Salmeterol [Advair Diskus 250-50] 1 puff INH BID 05/28/16 [History] Gemfibrozil [Lopid] 600 mg PO BID 05/28/16 [History] amLODIPine Besylate [Amlodipine Besylate] 10 mg PO BEDTIME 06/02/18 [History] ALPRAZolam [Xanax] 0.25 mg PO Q8H PRN 05/12/19 [History] Isosorbide Mononitrate [Imdur] 30 mg PO BEDTIME 05/12/19 [History] Bisacodyl [Dulcolax] 10 mg RECTAL DAILY PRN 06/12/19 [History] Calcitriol 0.5 mg PO ASDIRECTED 06/12/19 [History] Calcium Acetate 667 mg PO TID 06/12/19 [History] Divalproex Sodium [Divalproex Sodium ER] 2,000 mg PO BID 06/12/19 [History] Gentamicin [Gentamicin 0.1%] 1 applic TOP DAILY 06/12/19 [History] Insulin Glarg,Human.Rec.Analog [Lantus] 10 unit SQ BEDTIME 06/12/19 [History] Iron Polysaccharide Complex [Ferric X-150] 150 mg PO ASDIRECTED 06/12/19 [ History] Loratadine 10 mg PO DAILY PRN 06/12/19 [History] Metoprolol Succinate 100 mg PO BEDTIME 06/12/19 [History] Oxymetazoline [Afrin Original 0.05% Nasal [place]] 1 - 2 spray NASBOTH BID PRN [History] Polyethylene Glycol 8000 [Polyethylene Glycol] 1 packet PO DAILY PRN 06/12/19 [ History] Rosuvastatin Calcium 20 mg PO DAILY 06/12/19 [History] Saw Hardwick 460 mg PO DAILY 06/12/19 [History] Sennosides/Docusate Sodium [Senna-Docusate Sodium Tablet] 2 tab PO BID PRN 06/12 [History] Sodium Bicarbonate 650 mg PO TID 06/12/19 [History] levETIRAcetam [Levetiracetam] 1,000 mg PO BEDTIME 06/12/19 [History] Mirtazapine [Remeron] 7.5 mg PO BEDTIME #30 tablet 06/16/19 [Rx] Forms: ED Department Discharge Referrals: Eugene Skinner MD [Primary Care Provider] - (Follow up with Dr. Skinner in 7 days ) - Discharge Summary/Plan Comment DC Time >30 min.: No - General Info Date of Service: 06/16/19 Admission Dx/Problem (Free Text: Altered Mental Status Functional Status: Reports: Pain Controlled, Tolerating Diet, Ambulating, Urinating - Review of Systems General: Reports: Weakness, Fatigue HEENT: Reports: No Symptoms Pulmonary: Denies: Shortness of Breath, Cough Cardiovascular: Denies: Chest Pain, Edema, Lightheadedness Gastrointestinal: Denies: Abdominal Pain, Nausea, Vomiting Genitourinary: Reports: No Symptoms Musculoskeletal: Reports: No Symptoms Skin: Reports: No Symptoms Neurological: Reports: Confusion - Patient Data Vitals - Most Recent: Last Vital Signs Temp 99.2 F 06/16/19 08:00 Pulse 68 06/16/19 08:00 Resp 20 06/16/19 08:00 BP 174/79 H 06/16/19 08:00 Pulse Ox 96 06/16/19 08:00 Weight - Most Recent: 141 lb I&O - Last 24 hours: Intake & Output 06/16/19 06/16/19 06/16/19 06:59 14:59 22:59 Intake Total 360 Output Total 350 Balance 10 Lab Results - Last 24 hrs: Laboratory Results - last 24 hr 06/16/19 06/16/19 06/16/19 Range/Units 07:00 07:00 07:20 WBC 6.6 (5.0-10.0) 10^3/uL RBC 4.50 (4.50-6.00) 10^6/uL Hgb 12.5 L (14.0-18.0) g/dL Hct 39.1 L (40.0-54.0) % MCV 86.9 (82.0-94.0) fL MCH 27.8 (27.0-32.0) pg MCHC 32.0 L (33.0-38.0) g/dL RDW Coeff of Cheo 15.6 H (11.0-15.0) % Plt Count 53 L (150-400) 10^3/uL Neut % (Auto) 61.3 (35-85) % Lymph % (Auto) 16.0 (10-55) % [place] % (Auto) 12.3 (0-16) % Eos % (Auto) 9.9 H (0-5) % Baso % (Auto) 0.5 (0-3) % Neut # (Auto) 4.07 (1.80-7.00) 10^3/uL Lymph # (Auto) 1.06 (1.00-4.80) 10^3/uL [place]ven # (Auto) 0.82 H (0.00-0.80) 10^3/uL Eos # (Auto) 0.66 H (0.00-0.45) 10^3/uL Baso # (Auto) 0.03 10^3/uL Sodium 137 (136-145) mEq/L Potassium 4.2 (3.5-5.0) mEq/L Chloride 98 (98-106) mEq/L Carbon Dioxide 25 (21-32) mmol/L BUN 39 H D (7-18) mg/dL Creatinine 5.5 H* (0.7-1.3) mg/dL Est Cr Clr Drug Dosing 11.92 mL/min Estimated GFR (MDRD) 10 L (>=60) mL/min Glucose 104 H (75-99) mg/dL POC Glucose 122 H (75-105) mg/dl Calcium 8.6 (8.4-10.1) mg/dL C-Reactive Protein 10.4 H (0.2-0.8) mg/dL CHELA Results - Last 24 hrs: Microbiology 06/14/19 03:02 Aerobic Blood Culture - Preliminary Blood - Venous NO GROWTH AFTER 2 DAYS Anaerobic Blood Culture - Preliminary NO GROWTH AFTER 2 DAYS 06/14/19 03:02 Aerobic Blood Culture - Preliminary Blood - Venous - Lab Draw NO GROWTH AFTER 2 DAYS Anaerobic Blood Culture - Preliminary NO GROWTH AFTER 2 DAYS Med Orders - Current: Current Medications Discontinued Medications Albuterol (Ventolin Hfa) 0 gm INH Q4H PRN PRN Reason: Dyspnea Alprazolam (Xanax) 0.25 mg PO Q8H PRN PRN Reason: Anxiety Amitriptyline HCl (Elavil) 75 mg PO BEDTIME [facility] Last Admin: 06/14/19 23:22 Dose: Not Given Amlodipine Besylate (Norvasc) 10 mg PO BEDTIME [facility] Last Admin: 06/15/19 19:59 Dose: 10 mg Amlodipine Besylate (Norvasc) 10 mg PO ONETIME ONE Stop: 06/14/19 13:43 Last Admin: 06/14/19 13:55 Dose: 10 mg Bisacodyl (Dulcolax) 10 mg RECTAL DAILY PRN PRN Reason: Constipation Calcitriol (Rocaltrol) 500 mcg PO ASDIRECTED [facility] Calcium Acetate (Phoslo) 667 mg PO TIDMEALS [facility] Last Admin: 06/16/19 07:28 Dose: 667 mg Ceftriaxone Sodium (Rocephin) 1 gm IM ONETIME ONE Stop: 06/14/19 07:14 Last Admin: 06/14/19 08:37 Dose: Not Given Ceftriaxone Sodium (Rocephin) 1 gm IVPUSH ONETIME ONE Stop: 06/14/19 08:37 Last Admin: 06/14/19 08:42 Dose: 1 gm Ferrous Sulfate (Ferrous Sulfate) 324 mg PO BEDTIME [facility] Last Admin: 06/15/19 20:01 Dose: 324 mg Gemfibrozil (Lopid) 600 mg PO BID [facility] Last Admin: 06/16/19 07:26 Dose: 600 mg Gentamicin Sulfate (Gentamicin 0.1%) 1 gm TOP DAILY [facility] Last Admin: 06/16/19 12:28 Dose: Not Given Insulin Glargine (Lantus Solostar) 10 units SUBCUT BEDTIME [facility] Last Admin: 06/14/19 20:34 Dose: 10 units Insulin Human Lispro (Humalog) 4 unit SUBCUT TIDMEALS [facility] Last Admin: 06/15/19 10:51 Dose: Not Given Insulin Human Lispro (Humalog) 0 unit SUBCUT BIDAC [facility]; Protocol Last Admin: 06/16/19 07:21 Dose: Not Given Isosorbide Mononitrate (Imdur) 30 mg PO BEDTIME [facility] Last Admin: 06/15/19 19:58 Dose: 30 mg Levetiracetam (Keppra) 1,000 mg PO BEDTIME [facility] Last Admin: 06/14/19 23:22 Dose: Not Given Loratadine (Claritin) 10 mg PO DAILY PRN PRN Reason: Allergies Metoprolol Succinate (Toprol Xl) 100 mg PO BEDTIME [facility] Last Admin: 06/15/19 20:00 Dose: 100 mg Mirtazapine (Remeron) 15 mg PO BEDTIME [facility] Last Admin: 06/14/19 22:55 Dose: 15 mg Mirtazapine (Remeron) 7.5 mg PO BEDTIME [facility] Last Admin: 06/15/19 19:59 Dose: 7.5 mg Mometasone Furoate/Formoterol Fumar (Dulera 200-5 Mcg) 2 puff IH BID [facility]EN Mometasone Furoate/Formoterol Fumar (Dulera 200-5 Mcg) 2 puff IH BID [facility] Last Admin: 06/16/19 07:23 Dose: 2 puff Divalproex Sodium [ Divalproex Sodium Er ] 500 MgOwn Med 2,000 mg PO BID [facility] Last Admin: 06/16/19 08:12 Dose: Not Given Non-Formulary Medication (Gentamicin [Gentamicin 0.1%]) 1 applic TOP DAILY [facility] Last Admin: 06/15/19 10:48 Dose: Not Given Non-Formulary Medication (Polyethylene Glycol 8000 [Polyethylene Glycol]) 1 packet PO DAILY PRN PRN Reason: Constipation Non-Formulary Medication (Saw Hardwick [Saw Hardwick]) 460 mg PO DAILY [facility] Last Admin: 06/15/19 10:47 Dose: Not Given Amitriptyline 75mg (TabOwn Med) 1 each PO BEDTIME [facility] Rosuvastatin 20mg (TabOwn Med) 1 each PO BEDTIME [facility] Last Admin: 06/15/19 19:55 Dose: 1 each Levetiracetam 1000mg (TabOwn Med) 1 each PO BEDTIME [facility] Amitriptyline 75mg (TabOwn Med) 1 each PO BEDTIME [facility] Last Admin: 06/14/19 23:39 Dose: 1 each Levetiracetam 1000mg (TabOwn Med) 1 each PO BEDTIME [facility] Last Admin: 06/15/19 21:44 Dose: 1 each Calcitriol 0.5 Mcg (Cap Own Med) 0.5 mcg PO DAILY [facility] Oxymetazoline HCl (Afrin Original 0.05% Nasal [place]) 0 ml NASBOTH BID PRN PRN Reason: Congestion Polyethylene Glycol (Miralax) 17 gm PO DAILY PRN PRN Reason: Constipation Polysaccharide Iron Complex (Ferrex 150) 150 mg PO ASDIRECTED [facility] Senna/Docusate Sodium (Senna Plus) 2 tab PO BID PRN PRN Reason: Constipation Sertraline HCl (Zoloft) 10,000 mg PO DAILY [facility] Last Admin: 06/14/19 08:50 Dose: Not Given Sertraline HCl (Zoloft) 100 mg PO DAILY [facility] Last Admin: 06/16/19 07:29 Dose: 100 mg Sodium Bicarbonate (Sodium Bicarbonate) 650 mg PO TID [facility] Last Admin: 06/16/19 07:29 Dose: 650 mg Sodium Chloride (Saline Flush) 10 ml FLUSH ASDIRECTED PRN PRN Reason: Keep Vein Open - Exam General: Reports: Alert, Oriented (person and place) HEENT: Reports: Mucous Membr. Moist/[place] Neck: Reports: Supple Lungs: Reports: Clear to Auscultation, Normal Respiratory Effort Cardiovascular: Reports: Regular Rate, Regular Rhythm GI/Abdominal Exam: Normal Bowel Sounds, Soft, Non-Tender Extremities: Normal Inspection, No Pedal Edema Skin: Reports: Warm, Dry Neurological: Reports: No New Focal Deficit
== END 2019-06-16 11:55 | disposition home health service (06) | DRG 947 ==
LOC: CC.ED 02:05 → CC.MS 03:37 → UNDOADMOB 03:37 → CC.MS 04:14 → UNDOADMOB 04:14 → INTOOBSV 06-16 07:35 → OBSVTOIN 06-16 07:35 → CC.MS 06-16 07:35 → UNDODISIN 06-16 11:55
PROVIDERS: ADMIT Nurse Practitioner; ATTEND Family Medicine
DX: R41.82 Altered mental status, unspecified (principal); N18.6 End stage renal disease; I12.0 Hypertensive chronic kidney disease with stage 5 chronic kidney disease or end stage renal disease; Z99.2 Dependence on renal dialysis; D63.8 Anemia in other chronic diseases classified elsewhere; D64.9 Anemia, unspecified; D69.6 Thrombocytopenia, unspecified; J30.9 Allergic rhinitis, unspecified; E78.00 Pure hypercholesterolemia, unspecified; M19.91 Primary osteoarthritis, unspecified site; J44.9 Chronic obstructive pulmonary disease, unspecified; M19.90 Unspecified osteoarthritis, unspecified site; N40.0 Benign prostatic hyperplasia without lower urinary tract symptoms; G89.29 Other chronic pain; M54.9 Dorsalgia, unspecified; F32.9 Major depressive disorder, single episode, unspecified; F41.9 Anxiety disorder, unspecified; Z98.1 Arthrodesis status; Z90.49 Acquired absence of other specified parts of digestive tract; E11.22 Type 2 diabetes mellitus with diabetic chronic kidney disease; Z96.659 Presence of unspecified artificial knee joint; Z88.1 Allergy status to other antibiotic agents; Z88.0 Allergy status to penicillin; Z79.4 Long term (current) use of insulin; Z79.899 Other long term (current) drug therapy
CPT/HCPCS: 36415 ×3; 70450; 71045; 80048; 80053 ×2; 80164; 80177; 81001; 82962 ×8; 83605; 85025 ×3; 86140 ×2; 87040 ×2; 93005; 93010; 96374; 99220; 99225; 99285; A9270 ×42; G0378 ×3; J0696; J1815; 94640; 99217

== ENCOUNTER 2019-08-03 13:20 | Emergency (ER) | payer MEDICARE, OTHER ==
[2019-08-03 14:02] LABS: CHLORIDE,CL 105 mEq/L (98-106); SODIUM,NA 143 mEq/L (136-145)
[2019-08-03 14:09] LABS: BICARBONATE,ARTERIAL 29.5 mm/L (22.0-26.0); O2 DELIVERY DEVICE ROOM AIR; O2 SATURATION ARTERIAL 93 % (95-98); PCO2 ARTERIAL 48 mm/Hg0 (35-45); PO2 ARTERIAL 68 mm/Hg (80-100)
[2019-08-03] MEDS ORDERED: Sodium Chloride 0.9% 1,000 ML ONE (14:57)
[2019-08-03 15:32] VITALS: BP 152/79; PULSE 73
--- NOTE | 2019-08-03 15:37 | EDM.PDOC ---
ED HPI GENERAL MEDICAL PROBLEM - General Chief Complaint: General Stated Complaint: confusion Time Seen by Provider: 08/03/19 13:40 Source of Information: Reports: EMS, Family History Limitations: Reports: Altered Mental Status - History of Present Illness INITIAL COMMENTS - FREE TEXT/NARRATIVE: Patient presents to ER with increased confusion, lethargy. contacted EMS due to inability for patient to care for himself due to increased confusion, shortness of breath, weakness. She reports he has declined again the last week. He was discharged June 25 per records from [facility] to [facility]. While there, she reports [facility] to [facility]. Was noted to be anemic and was given 2 units of blood. She questions now if "that perked him up enough to feel good and want to come home". He did well the first 3 days at home but since has not been eating or drinking well, sleeps all the time and today, was more confused. Has not been compliant with his meds and she is unsure which of his meds he has taken or missed. She herself has health problems and states "don't even know how to give him his insulin". Patient appears very weak, slow to respond on arrival. EMS reports sats were in the 70s on their arrival, was on 6 liters by nasal cannula on arrival. He is disoriented to place and time. States feels short of breath. Denies increased pain. Patient has been a patient at [facility] and here multiple times for altered mental status, lethargy. Has seizure disorder. unsure if has been taking seizure meds. She has not witnessed a seizure. History of encephalopathy. Is on renal dialysis due to ESRD. Due for that again tomorrow. Onset: Gradual Duration: Day(s): Location: Reports: Generalized Associated Symptoms: Reports: Confusion, Loss of Appetite, Malaise, Shortness of Breath, Weakness. Denies: Chest Pain, Cough, Fever/Chills Treatments MANAGED CARE SPECIALIST: Reports: Oxygen - Related Data Allergies Allergy/AdvReac Type Severity Reaction Status Date / Time amoxicillin Allergy Itching Verified 08/03/19 14:28 erythromycin base Allergy Nausea Verified 08/03/19 14:28 penicillin Allergy Swelling Verified 08/03/19 14:28 Home Meds: Home Meds Sertraline [Zoloft] 100 tab PO DAILY 07/02/15 [History] Albuterol [Ventolin HFA] 2 puff INH Q4H PRN 02/15/16 [History] Bisacodyl [Dulcolax] 10 mg RECTAL DAILY PRN 06/12/19 [History] Calcium Acetate 667 mg PO TID 06/12/19 [History] Divalproex Sodium [Divalproex Sodium ER] 1,500 mg PO BID 06/12/19 [History] Insulin Glarg,Human.Rec.Analog [Lantus] 3 unit SQ BEDTIME 06/12/19 [History] Iron Polysaccharide Complex [Ferric X-150] 300 mg PO ASDIRECTED 06/12/19 [ History] Sennosides/Docusate Sodium [Senna-Docusate Sodium Tablet] 100 mg PO DAILY [History] Sodium Bicarbonate 650 mg PO TID 06/12/19 [History] levETIRAcetam [Levetiracetam] 1,000 mg PO BEDTIME 06/12/19 [History] Acetaminophen [8Hr Muscle Aches-Pain] 650 mg PO QID PRN 08/03/19 [History] Amitriptyline HCl 75 mg PO DAILY 08/03/19 [History] Bisacodyl 5 mg PO DAILY 08/03/19 [History] Fluticasone/Salmeterol [Advair 500-50] 1 puff INH BID 08/03/19 [History] Mirtazapine [Remeron] 15 mg PO BEDTIME 08/03/19 [History] Rosuvastatin [Crestor] 20 mg PO DAILY 08/03/19 [History] levETIRAcetam [Keppra] 250 mg PO DAILY 08/03/19 [History] Past Medical History HEENT History: Reports: Allergic Rhinitis, Other (See Below) Other HEENT History: left eardrum trauma Cardiovascular History: Reports: High Cholesterol, Hypertension, Other (See Below) Other Cardiovascular History: pt states will have to see a merry go round attendant for possilbe stent placement. Respiratory History: Reports: Asthma, COPD Gastrointestinal History: Reports: Pancreatitis, PUD Genitourinary History: Reports: BPH, Dialysis Musculoskeletal History: Reports: Arthritis, Back Pain, Chronic, Osteoarthritis Neurological History: Reports: Seizure, Other (See Below) Other Neuro History: viral encephalitis Psychiatric History: Reports: Anxiety, Depression Endocrine/Metabolic History: Reports: Diabetes, Type II Hematologic History: Reports: Blood Transfusion(s) Immunologic History: Reports: Other (See Below) Other Immunologic History: Hx of shingles - Infectious Disease History Infectious Disease History: Reports: Shingles - Past Surgical History Cardiovascular Surgical History: Reports: Vascular Surgery GI Surgical History: Reports: Cholecystectomy, Colonoscopy Neurological Surgical History: Reports: Laminectomy, Lumbar Spine, Spinal Fusion , Other (See Below) Musculoskeletal Surgical History: Reports: Knee Replacement, Shoulder Surgery Social & Family History - Family History Family Medical History: Noncontributory - Tobacco Use Smoking Status *Q: Former Smoker Years of Tobacco use: 30 Used Tobacco, but Quit: Yes Month/Year Tobacco Last Used: 20 - Caffeine Use Caffeine Use: Reports: None - Recreational Drug Use Recreational Drug Use: No - Living Situation & Occupation Living situation: Reports: , with Spouse Occupation: Retired ED ROS GENERAL - Review of Systems Review Of Systems: See Below (obtained per ) Constitutional: Reports: Malaise, Weakness, Fatigue, Decreased Appetite. Denies : Fever, Chills HEENT: Denies: Ear Pain, Throat Pain Respiratory: Reports: Shortness of Breath. Denies: Cough Cardiovascular: Denies: Chest Pain, Edema, Lightheadedness Endocrine: Reports: Fatigue GI/Abdominal: Reports: Decreased Appetite. Denies: Abdominal Pain, Nausea, Vomiting Skin: Reports: Pallor, Other (patient unkempt) Neurological: Reports: Confusion, Weakness ED EXAM, GENERAL - Physical Exam Exam: See Below Exam Limited By: No Limitations General Appearance: WD/WN, No Apparent Distress, Lethargic Eye Exam: Bilateral Eye: PERRL Ears: Normal External Exam, Normal TMs Nose: Normal Inspection, Normal Mucosa, No Blood Throat/Mouth: Other (mucous membranes dry) Head: Normocephalic Neck: Normal Inspection, Supple, Non-Tender Respiratory/Chest: No Respiratory Distress, Lungs Clear Cardiovascular: Regular Rate, Rhythm GI/Abdominal: Normal Bowel Sounds, Soft, Non-Tender Extremities: Other (skin very dry) Neurological: Oriented (person only), Slow to Respond Skin Exam: Warm, Dry Course - Vital Signs Last Recorded V/S: Last Vital Signs Temp 97.8 F 08/03/19 14:15 Pulse 73 08/03/19 14:15 Resp 12 08/03/19 14:15 BP 152/79 H 08/03/19 14:15 Pulse Ox 100 08/03/19 14:15 - Orders/Labs/Meds Orders: Active Orders 24 hr Category Date Time Status Chest 1V Frontal [CR] Stat Exams 08/03/19 13:28 Taken Sodium Chloride 0.9% [Normal Saline] 1,000 ml Med 08/03/19 15:45 Active IV ASDIRECTED Medication Orders Sodium Chloride (Normal Saline) 1,000 mls @ 75 mls/hr IV ASDIRECTED PR[facility]EN Labs: Laboratory Tests 08/03/19 08/03/19 08/03/19 Range/Units 13:35 13:35 13:35 WBC 4.4 L (5.0-10.0) 10^3/uL RBC 2.58 L (4.50-6.00) 10^6/uL Hgb 8.5 L (14.0-18.0) g/dL Hct 27.1 L (40.0-54.0) % MCV 105.0 H (82.0-94.0) fL MCH 32.9 H (27.0-32.0) pg MCHC 31.4 L (33.0-38.0) g/dL RDW Coeff of Cheo 17.4 H (11.0-15.0) % Plt Count 32 L* (150-400) 10^3/uL Neut % (Auto) 52.3 (35-85) % Lymph % (Auto) 28.4 (10-55) % Lares % (Auto) 8.2 (0-16) % Eos % (Auto) 10.9 H (0-5) % Baso % (Auto) 0.2 (0-3) % Neut # (Auto) 2.30 (1.80-7.00) 10^3/uL Lymph # (Auto) 1.25 (1.00-4.80) 10^3/uL Lares # (Auto) 0.36 (0.00-0.80) 10^3/uL Eos # (Auto) 0.48 H (0.00-0.45) 10^3/uL Baso # (Auto) 0.01 10^3/uL D-Dimer, Quantitative 3.68 H (0.00-0.50) ABG pH (7.35-7.45) ABG pCO2 (35-45) mm/Hg0 ABG pO2 (80-100) mm/Hg ABG HCO3 (22.0-26.0) mm/L ABG O2 Saturation (95-98) % ABG Base Excess (-2.0-3.0) O2 Delivery Device Sodium 143 (136-145) mEq/L Potassium 4.0 (3.5-5.0) mEq/L Chloride 105 (98-106) mEq/L Carbon Dioxide 31 (21-32) mmol/L BUN 22 H (7-18) mg/dL Creatinine 4.6 H* (0.7-1.3) mg/dL Est Cr Clr Drug Dosing TNP Estimated GFR (MDRD) 13 L (>=60) mL/min Glucose 107 H (75-99) mg/dL Calcium 8.0 L (8.4-10.1) mg/dL Total Bilirubin 0.2 (0.0-1.0) mg/dL AST 22 (15-37) U/L ALT 7 L (12-78) U/L Alkaline Phosphatase 85 (46-116) U/L Troponin I < 0.017 (0.00-0.06) ng/mL C-Reactive Protein 4.8 H (0.2-0.8) mg/dL NT-Pro-B Natriuret Pep 3611 H (0-1000) pg/mL Total Protein 5.3 L (6.4-8.2) g/dL Albumin 1.5 L (3.4-5.0) g/dL 08/03/19 Range/Units 14:09 WBC (5.0-10.0) 10^3/uL RBC (4.50-6.00) 10^6/uL Hgb (14.0-18.0) g/dL Hct (40.0-54.0) % MCV (82.0-94.0) fL MCH (27.0-32.0) pg MCHC (33.0-38.0) g/dL RDW Coeff of Cheo (11.0-15.0) % Plt Count (150-400) 10^3/uL Neut % (Auto) (35-85) % Lymph % (Auto) (10-55) % Lares % (Auto) (0-16) % Eos % (Auto) (0-5) % Baso % (Auto) (0-3) % Neut # (Auto) (1.80-7.00) 10^3/uL Lymph # (Auto) (1.00-4.80) 10^3/uL Lares # (Auto) (0.00-0.80) 10^3/uL Eos # (Auto) (0.00-0.45) 10^3/uL Baso # (Auto) 10^3/uL D-Dimer, Quantitative (0.00-0.50) ABG pH 7.39 (7.35-7.45) ABG pCO2 48 H (35-45) mm/Hg0 ABG pO2 68 L (80-100) mm/Hg ABG HCO3 29.5 H (22.0-26.0) mm/L ABG O2 Saturation 93 L (95-98) % ABG Base Excess 5.0 H (-2.0-3.0) O2 Delivery Device Room air Sodium (136-145) mEq/L Potassium (3.5-5.0) mEq/L Chloride (98-106) mEq/L Carbon Dioxide (21-32) mmol/L BUN (7-18) mg/dL Creatinine (0.7-1.3) mg/dL Est Cr Clr Drug Dosing Estimated GFR (MDRD) (>=60) mL/min Glucose (75-99) mg/dL Calcium (8.4-10.1) mg/dL Total Bilirubin (0.0-1.0) mg/dL AST (15-37) U/L ALT (12-78) U/L Alkaline Phosphatase (46-116) U/L Troponin I (0.00-0.06) ng/mL C-Reactive Protein (0.2-0.8) mg/dL NT-Pro-B Natriuret Pep (0-1000) pg/mL Total Protein (6.4-8.2) g/dL Albumin (3.4-5.0) g/dL Meds: Medications Generic Name Dose Route Start Last Admin Trade Name Freq PRN Reason Stop Dose Admin Sodium Chloride 1,000 mls @ 75 mls/hr 08/03/19 15:45 Normal Saline IV ASDIRECTED PRAVEEN Discontinued Medications Generic Name Dose Route Start Last Admin Trade Name Norma PRN Reason Stop Dose Admin Sodium Chloride Confirm 08/03/19 14:57 08/03/19 15:37 Normal Saline Administered 08/03/19 14:58 Not Given Dose 1,000 mls @ as directed .ROUTE .K-MED ONE - Re-Assessments/Exams Free Text/Narrative Re-Assessment/Exam: 08/03/19 Labs noted, hemoglobin and platelets low. Sodium and potassium are normal. D- Dimer is elevated at 3.68, creatinine 4.6. ProBNP 3611. troponin negative. Due for dialysis tomorrow. contacted Dr. Mcdermott at [facility] and discussed status of patient. Agreed to accept the patient in transfer. Discussed risks of transfer with . Risks of transfer include vehicle crash , worsening status and . Benefits of transfer include specialized care for ESRD, seizure disorder and altered mental status. Risks of non transfer include worsening status and . Benefits of non transfer include care close to home. agrees to transfer patient. Departure - Departure Time of Disposition: 16:20 Disposition: DC/Tfer to Acute Hospital 02 Condition: Poor Clinical Impression: ESRD (end stage renal disease), Thrombocytopenia, CHF, Congestive heart failure Altered mental status Qualifiers: Altered mental status type: unspecified Qualified Code(s): R41.82 - Altered mental status, unspecified Anemia Qualifiers: Anemia type: unspecified type Qualified Code(s): D64.9 - Anemia, unspecified - Discharge Information Referrals: Eugene Skinner MD [Primary Care Provider] - Forms: ED Department Discharge Additional Instructions: Transfer BLS to [facility], accepting physical Dr. Mcdermott - My Orders Last 24 Hours: My Active Orders 08/03/19 13:28 Chest 1V Frontal [CR] Stat 08/03/19 15:45 Sodium Chloride 0.9% [Normal Saline] 1,000 ml IV ASDIRECTED - Assessment/Plan Last 24 Hours: My Active Orders 08/03/19 13:28 Chest 1V Frontal [CR] Stat 08/03/19 15:45 Sodium Chloride 0.9% [Normal Saline] 1,000 ml IV ASDIRECTED
[2019-08-03] MEDS ORDERED: Sodium Chloride 0.9% 1,000 ML IV SCH (15:45)
== END 2019-08-03 16:36 ==
LOC: CC.ED 13:20
DX: I13.2 Hypertensive heart and chronic kidney disease with heart failure and with stage 5 chronic kidney disease, or end stage renal disease (principal); E11.22 Type 2 diabetes mellitus with diabetic chronic kidney disease; N18.6 End stage renal disease; I50.9 Heart failure, unspecified; D63.1 Anemia in chronic kidney disease; R41.82 Altered mental status, unspecified; D69.6 Thrombocytopenia, unspecified; E78.00 Pure hypercholesterolemia, unspecified; J44.9 Chronic obstructive pulmonary disease, unspecified; F41.9 Anxiety disorder, unspecified; F32.9 Major depressive disorder, single episode, unspecified; Z87.891 Personal history of nicotine dependence; Z88.1 Allergy status to other antibiotic agents; Z88.0 Allergy status to penicillin; Z79.899 Other long term (current) drug therapy; Z79.4 Long term (current) use of insulin; Z99.2 Dependence on renal dialysis
CPT/HCPCS: 36415; 36600; 71045; 80053; 82803; 83880; 84484; 85025; 85379; 86140; 93005; 96360; 99285; J7030; 99284